=== PATIENT | male | born 1940 | race Caucasian/White ===

== ENCOUNTER 2024-04-24 10:31 | Outpatient (REF) | payer MEDICARE, SELFPAY ==
--- NOTE | ~2024-04-24 | XR_ITS ---
CLINICAL HISTORY: M43.16 - Spondylolisthesis, lumbar region 4 views lumbar spine Comparison: None Findings: Slight rightward curvature of the thoracolumbar spine. Grade 1 anterolisthesis of L5 on S1 without significant change on flexion extension. This measures a proximally 4-5 mm with differences likely related to a degree of parralax. Multilevel disc height loss with reactive endplate changes greatest in the lower lumbar spine with lower lumbar facet hypertrophy. No acute fractures or dislocation. IMPRESSION: Lower lumbar degenerative change with grade 1 anterolisthesis of L5 on S1. No significant change in the degree of listhesis on flexion extension. This document has been electronically signed by: Lora Ames MD on 04/26/2024 08:51:45
== END 2024-04-24 10:32 | disposition home or self-care (01) ==
LOC: HO.HOSX 10:31
PROVIDERS: Referring Provider Family Medicine; Visit Provider Physician Assistant
DX: M43.16 Spondylolisthesis, lumbar region (principal); M51.371 Other intervertebral disc degeneration, lumbosacral region with lower extremity pain only; Z98.890 Other specified postprocedural states
CPT/HCPCS: 72110; 99202

== ENCOUNTER 2024-04-24 10:31 | Outpatient (AMB) | payer MEDICARE, SELFPAY ==
--- NOTE | 2024-04-24 10:33 | A.SPINEOV_ITS ---
Vital Signs 04/24/24 10:49 Height 5 ft 5 in Weight 123 lb 8 oz BMI 20.5 Intake Visit Reasons: LBP Intake Note: Mr. Moralez is here today c/o Low back pain that radiates down to the groin and legs causing numbness and tingling. Clerical And Office Support Workers Required: No Allergies No Known Allergies Allergy (Verified 04/24/24 10:50) Physical Exam Vital Signs: BMI result Body Mass Index 20.5 Assessment & Plan Assessment & Plan (1) Spondylolisthesis, lumbar region: Code(s): M43.16 - Spondylolisthesis, lumbar region Category: Medical Plan Dear Dr Lowe, Thank you for referring Mr Moralez to our office today. He is a very nice 83-year-old gentleman who had a previous lumbar decompression done by Dr. Mario Ward at [facility] in 2019. The symptoms at the time were back pain and right leg pain. Unfortunately after surgery he was no better. Postoperative imaging was done and the patient tells me that he was told that he needed a lumbar fusion. Ideally he wanted to go through the front, but the patient had history of previous gastric surgery done many years ago secondary to gastric cancer, so the patient was sent to a general surgeon at [facility] to see if he was a candidate. The general surgeon thought he would be able to access the disc for and the patient thought the surgery would be planned shortly thereafter, but he never heard back from the office. The patient was very frustrated with the process and lack of communication so he decided to take his own route and try to deal with the pain with injections, therapy and medications etc.. He underwent physical therapy and also had hospice spiritual care coordinator. This would help things for awhile but generally never had a meaningful impact. He underwent injections at [facility] and these have been very successful at times giving him up to 2 months of relief. He still however battles with severe back pain and right leg pain going down into his right buttock, outer thigh into his calf with numbness of his big toe. It is aggravated with standing and walking, but also can bother him if he sits for too long. He is coming to talk about possible surgical options, but he is somewhat hesitant at the idea. His is here with him today. He takes Tylenol in the evenings if he needs it. He was on a leave for sometime but stopped that because he was concerned about his kidneys. He is still able to actively do things around the yard, chop wood and stack wood for his fireplace. PMH: He has history of gastric cancer many years ago, more than 20 years ago. He had resection of part of his stomach, has been able to resume normal diet. History of hypertension, BPH, asthma. He has a diagnosis of seizure disorder related to an event where he had a syncopal episode, but tells me he has never been taken off the medication or reassessed with an EEG. He was told he needs to stay the medication for life. Previous hernia surgery, cataract in both eyes, vasectomy. Denies any history of strokes, cardiovascular disease, major pulmonary problems, bleeding disorders, blood clots, liver disease, kidney disease. No recent history of cancer. Social hx: He does not smoke, drink use any recreational drugs Medications: Lisinopril, omeprazole, albuterol, Flovent, Flonase, finasteride, simvastatin, Singulair, centrum silver, low-dose aspirin, zonisamide, eyedrops, Colace, Tylenol, Oculocin eyedrops, brimonidine Allergies: None Physical exam: Awake alert oriented no acute distress, he has full strength bilateral lower extremities with normal reflexes, no clonus. He is able to stand up out of a chair on his own but he walks with a flexed posture. He has about a 2-3 inch midline incision on his low back which is well healed. He also has about an 8-10 inch scar starting at his umbilicus going upward vertically in the midline. That area is well healed. Imaging review: Lumbar MRI done in July of 2023 at the [facility], shows transitional anatomy, evidence of postsurgical changes at what we will call the L5-S1 level. There is a small rudimentary disc underneath this which we will call S1-S2. There is a grade 1 spondylolisthesis at L5-S1 with severe right L5 foraminal stenosis. Impression: 83-year-old male with previous history of L5-S1 laminectomy, did not have any resolution of his symptoms in [address] ward, who still continues to complain of severe back pain and right leg pain consistent with an L5 distribution. He was previously told by Dr. Ward in 2019 that he would be a good candidate for anterior lumbar interbody fusion surgery despite his previous history of stomach surgery, but the patient never heard back from the office. Since that time he has been dealing with the pain with a combination of medications, anti-inflammatories and injections. He does at times get up to 2 months relief with the injections. He is not exactly sure if this time if he wants to consider surgery, but he does have significant findings including a spondylolisthesis at L5-S1 with severe right L5 foraminal stenosis and disc collapse. I am going to review his imaging to see if Dr. Stoll agrees that the patient would be a good candidate for surgery but I suspect he will offer him surgery if the pain is bad enough. I would like to show the images to him so we can make a more formal plan about the exact approach of surgery. Once I have an answer from Dr. Stoll I will call the gentleman back and discuss with him again. We briefly did discuss what lumbar fusion surgery is, risks, benefits and recovery. I will also get a set of x-rays just to double check that his bone quality would be good enough at his age for fusion surgery. Also, there is incidentally noted right sacral ala lesion on his MRI report. It is suspected to be hemangioma by the radiology, and the patient has no recent history of cancer but if the patient has not followed in our office, this should be monitored periodically to ensure that it is not growing. Thank you for allowing us to care for your patient. The total time spent with this visit with this patient was 45 minutes reviewing history, physical exam, lumbar imaging review, and implementation of treatment plan or further diagnostic testing León Stoll MD,PhD [facility] Orders: Orders XR lumbar spine 4V min Today M43.16 - Spondylolisthesis, lumbar region Coding Level of Care Code New Pt Level 4 (66882) Diagnoses Spondylolisthesis, lumbar region M43.16
[2024-04-24 10:49] VITALS: BMI 20.5
--- OUTSIDE RECORDS SUMMARY | 2024-04-24 11:52 | XMS_ITS | Clinical Summary ---
Author Organization [facility] Address [address] [place] [address] Care Team Providers Care Tensioning Machine Operator Name Role Phone Jacki Rivera Primary Care Provider [phone] Allergies No known active allergies Medications * This document contains information received from the source organization and may not represent a complete record from that organization. Lisinopril (PRINIVIL,ZESTR IL) 40 MG tablet 2 Active Esomeprazole Magnesium (NexIUM) [address] capsule 1 Active ALBUTEROL SULFATE (PROVENTIL HFA;VENTOLIN HFA) 108 (90 Base) MCG/ACT inhaler Inhale Active Fluticasone Propionate HFA (FLOVENT HFA) 110 MCG/ACT inhaler Active FLUTICASONE PROPIONATE, NASAL, (FLONASE) 50 MCG/ACT nasal spray Administer 1 spray into affected nostril(s) Active Finasteride (PROSCAR) 5 MG tablet 2 Active Simvastatin (ZOCOR) 40 MG tablet 2 Active montelukast (SINGULAIR) 10 MG tablet 2 Active Aspirin (ST LATASHA) 81 MG EC tablet 81 mg Active Zonisamide (ZONEGRAN) 100 MG capsule 1 Active Docusate Sodium (COLACE) 100 MG capsule Take 100 mg by mouth 2 (two) times a day Active Social History Tobacco Use Types Packs/Day Years Used Date Smoking Tobacco: Former Smokeless Tobacco: Never Intimate Partner Violence Answer Date R ecorded Fear of Current or Ex-Partner Not on file Emotionally Abused Not on file 09/27/2022 Physically Abused Not on file 09/27/2022 Sexually Abused Not on file 09/27/2022 Feel Safe at Home Not on file 09/27/2022 Sex and Gender Information Value Date Recorded Sex Assigned at Not on file Legal Sex Male 12:55 PM EDT Gender Identity Not on file Sexual Orientation Not on file Plan of Treatment Health Maintenance Due Date Last Done Comments DTaP/Tdap/Td (1 - Tdap) 1958 Pneumococcal 50+ years (1 of 1 - PCV) 1990 Zoster (Shingrix) (1 of 2) 1990 RSV (1 - 1-dose 75+ series) 11/10/2015 COVID-19 Vaccine ( - 2023-2 5 season) 2023 Influenza (#1) 2023 HPV Vaccine Aged Out No longer eligi ble based on patient's age to complete this topic Hep A Aged Out No longer eligi ble based on patient's age to complete this topic Hep B Aged Out No longer eligi ble based on patient's age to complete this topic Hib Aged Out No longer eligi ble based on patient's age to complete this topic Meningococcal ACWY Aged Out No longer eligible based on patient's age to complete this topic Zoster (Zostavax) Discontinued Insurance MEDICARE PART B [facility] OPTIONS-SUPPLEMENTAL * Guarantor: MANAGEMENT OF TRANSPORTION Account Type Relation to Patient Date of Phone Billing Address [employer] [address] [place] [id number] Care Teams Tensioning Machine Operator Relationship Specialty Start Date End Date Jacki Rivera [facility] [address] [id number] PCP - General Family Medicine 01/16/21
--- OUTSIDE RECORDS SUMMARY | 2024-04-24 11:52 | XMS_ITS | Encounter Summary ---
Author Organization [facility] Address [address] [place] [address] Care Team Providers Care Deicer Kit Assembler Name Role Phone ChrissyTriDayan MERCADO Primary Care Provider [phone] Encounter Details Date Type Department Care Team (Latest Contact Info) Description 01/22/2020 Community Orders [facility] EpicCare Link [address] [place] [address] Thiago Bellamy MD [address] [place] [id number] Pre-procedural laboratory examinations (Primary Dx) Social History Tobacco Use Types Packs/Day Years Used Date Smoking Tobacco: Former Smokeless Tobacco: Never Comments:: Alcohol Use Standard Drinks/Week Comments Yes 0 (1 standard drink = 0.6 oz pur e alcohol) social Sex and Gender Information Value Date Recorded Sex Assigned at Not on file Legal Sex Male 12:57 AM EDT Gender Identity Not on file Sexual Orientation Not on file documented as of this encounter Plan of Treatment Not on file documented as of this encounter Results * Due to [place] state law, this organization might not be sharing negative HIV tests. * COVID-19 PCR, Pre-Procedure (Asymptomatic), EDGE SANDER/OP/Saliva (03/18/2020 8:40 AM EST) SARS CoV 2 RNA, RT PCR Not Detected Not Detected 03/18/2020 7:58 PM EST [facility] Comment:A Not Detected (Nega tive) test result is indicative of the absence of SARS-CoV-2 RNA at the level of LoD (Limit of Detection). A negative result does not rule out the possibility of COVID-19 and should not be used as the sole basis for treatment or patient management decisions. If COVID-19 is still suspected, based on exposure history together with other clinical findings, re-testing should be considered. Saliva Mouth region structure / Unknown Non-Blood Collection / Unknown 03/18/2020 8:40 AM EST 03/18/2020 8:40 AM EST Narrative [facility] - 03/18/2020 7:58 PM EST These tests were developed, validated, and their performance characteristics determined by the Molecular Virology Laboratory at [facility] under CLIA [id number]. They have not been cleared or approved by the U.S. Food and Drug Administration (FDA). FDA Policy for Diagnostic Tests for Coronavirus Disease-2019 during the Public Health Emergency issued April 24, 2019, is followed. us Thiago Bellamy MD LAB BODY FLUIDS AND STOOLS ORDER NORM Final Result [facility] [address] [place] [address], documented in this encounter Visit Diagnoses Diagnosis Pre-procedural laboratory examinations- Primary Pre-procedural laboratory examination documented in this encounter Care Teams Deicer Kit Assembler Relationship Specialty Start Date End Date Tri Lowe DO [address] [place] [phone] PCP - General Family Medicine 03/23/24 documented as of this encounter
--- OUTSIDE RECORDS SUMMARY | 2024-04-24 11:53 | XMS_ITS | Clinical Summary ---
Author Organization [facility] Address [address] [place] [address] Care Team Providers Care Yarder Engineer Name Role Phone Tri Lowe DO Primary Care Provider [phone] Allergies Active Allergy Reactions Criticality Noted Date Comments Iodinated Contrast Media Hives,Dyspnea High 08/07/19 20 No Known Drug Allergies Unknown Medications aspirin 81 mg EC tablet 81 mg daily. Active fluticasone (FLOVENT HFA) 110 mcg inhaler Acti ve levETIRAcetam (KEPPRA) 500 mg tablet Active lisinopril (PRINIVIL,ZESTR IL) 40 mg tablet Take 40 mg by mouth daily. Active esomeprazole (NexIUM) 40 mg capsule Take 40 mg by mouth every morning before breakfast. Active albuterol (PROAIR HFA,VENTOLIN HFA) 90 mcg inhaler Inhale by mouth. Use with spacer. Active fluticasone (FLONASE) 50 mcg/actuation nasal spray Administer 1 spray into each nostril daily. Active simvastatin (ZOCOR) 20 mg tablet Take 40 mg by mouth nightly. Taking 40 mg Active montelukast (SINGULAIR) 10 mg tablet Take 10 mg by mouth nightly. Active FOLIC ACID/MULTIVIT-M IN/LUTEIN (CENTRUM SILVER ORAL) Take by mouth. Activ e NAPROXEN SODIUM (ALEVE ORAL) Take by mouth. Ac tive pyridoxine (VITAMIN B6) 50 mg tablet Take 50 mg by mouth daily. Active zonisamide (ZONEGRAN) 100 mg capsule Take 100 mg by mouth daily. Active carboxymethylce llulose-glycern (REFRESH OPTIVE) 0.5-0.9 % drops Instill into affected eye(s). Active carboxymethylce llulose-glycern (REFRESH OPTIVE) 1-0.9 % drops,gel Instill into affected eye(s). Active methylPREDNISol one (MEDROL DOSEPACK) 4 mg tablet follow package directions 21 tablet 9 Active cyclobenzaprine (FLEXERIL) 10 mg tablet Take 1 tablet (10 mg total) by mouth nightly. 30 tablet 9 Active Additional Information Patient not taking.Reported on 03/13/2020 methylPREDNISol one (MEDROL DOSEPACK) 4 mg tablet follow package directions 21 tablet 9 Active oxyCODONE IR (ROXICODONE) 5 mg tablet Take 1 tablet (5 mg total) by mouth 2 times a day. Max Daily Amount: 10 mg 60 tablet 9 Active Additional Information Patient not taking.Reported on 03/13/2020 Active Problems Problem Noted Date Diagnosed Date Lumbar spondylosis 08/27/2016 Lower back pain 04/10/2013 Lumbosacral neuritis 04/10/2013 Vertigo 04/21/2012 Family History Medical History Relation Name Comments Other Father Family History of lung disease Relation Name Status Comments Father Social History Tobacco Use Types Packs/Day Years Used Date Smoking Tobacco: Former Cigarettes Q uit: 1985 Smokeless Tobacco: Never Alcohol Use Standard Drinks/Week Comments Not Currently 0 (1 standard drink = 0.6 oz pur e alcohol) social Sex and Gender Information Value Date Recorded Sex Assigned at Not on file Legal Sex Male 12:57 AM EDT Gender Identity Not on file Sexual Orientation Not on file Last Filed Vital Signs Vital Sign Reading Time Taken Comments Blood Pressure 118/68 08/26/2017 1:18 PM EDT Pulse 63 07/29/2017 10:27 AM EDT Temperature 36.7 ??C (98 ??F) 12/08/2018 2:18 PM EDT Respiratory Rate 18 07/29/2017 10:27 AM EDT Oxygen Saturation 98% 07/29/2017 10:27 AM EDT Inhaled Oxygen Concentration - - Weight 54.9 kg (121 lb) 03/13/2020 4:01 PM EST Height 165.1 cm (5' 5 ) 03/13/2020 4:01 PM EST Body Mass Index 20.14 03/13/2020 4:01 PM EST Plan of Treatment Health Maintenance Due Date Last Done Comments DTaP,Tdap,and Td Vaccines (1 - Tdap) 08/04/2018 08/03/2018 COVID-19 Vaccine (6 - season) 2023 02/23/2022, 07/09/2021, 01/06/2021, Additional history exists Alcohol/Substance Use Screening 02/09/2024 Fall Risk Screening 02/09/2024 Health Care Proxy Review 02/09/2024 Social Drivers of Health Annual Screening 02/09/2024 Zoster Vaccines Completed 10/06/2018, 05/12/2018 RSV Vaccine (60+ years old and patients) Completed 12/08/2022 Pneumococcal Vaccine: 50+ Years Completed 01/13/2023, 11/18/2007, 04/09/2005 Influenza Vaccine Completed 12/09/2023, , 12/11/2020, Additional history exists Hepatitis B Vaccines Aged Out No long er eligible based on patient's age to complete this topic Insurance MEDICARE [facility] SUPP AARP Care Teams Yarder Engineer Relationship Specialty Start Date End Date Tri Lowe DO [address] [place] [phone] PCP - General Family Medicine 03/23/24
--- OUTSIDE RECORDS SUMMARY | 2024-04-24 11:53 | XMS_ITS | Referral Summary ---
Author Organization [facility] Address [address] [place] [address] Care Team Providers Care Painting Trades Worker Name Role Phone Tri Lowe DO Primary Care Provider [phone] Allergies Active Allergy Reactions Criticality Noted Date [...] pain 04/10/2013 Lumbosacral neuritis 04/10/2013 Vertigo 04/21/2012 Social History Tobacco Use Types Packs/Day Years [...] 03/13/2020 4:01 PM EST Plan of Treatment Not on file Insurance MEDICARE [facility] Care Teams Painting Trades Worker Relationship Specialty Start Date End Date Tri Lowe DO [address] [place] [address] [place] [phone] PCP - General Family Medicine 03/23/24
--- OUTSIDE RECORDS SUMMARY | 2024-04-24 11:53 | XMS_ITS | Data Portability ---
Author Organization [facility], [facility] Address [address] [place] [address] Care Team Providers Care Method Consultant Name Role Phone TRI SINGH Primary Care Provider [phone] TRI SINGH Referring Provider ALYSSIA REYES Pain Management Assessment No assessment recorded. Plan of Treatment Reminders Order Date Submit Date Provider Last Modified By Organization Details Last Modified Time Details Appointments PCP-Offic e Visit-15 Min 2024 09:45A M Tri Singh, DO Not available Not available Not available PCP-Medic are Exam-30 Min 2024 09:00A M Tri Singh, DO Not available Not available Not available Lab hepatitis C virus Ab, serum 2023 024 [facility], [address] [place] [address], [id number], 01/12/2024 17:59:39 CMP, serum or plasma 2023 024 [facility], [address] [place], [address], 01/12/2024 17:54:05 lipid panel, serum 2023 024 [facility], [address] [place], [address], 01/12/2024 17:54:07 CBC w/ auto diff 2023 024 [facility], [address] [place], [address], 01/12/2024 18:11:24 CBC w/ auto diff 2023 024 [facility], [address] [facility] [place], [address], 07/12/2023 16:18:47 lipid panel, serum 2023 024 [facility], [address] [facility] [place], [address], 07/12/2023 16:43:28 CMP, serum or plasma 2023 024 [facility], [address] [facility], [place], [address], 07/12/2023 16:43:26 Referral gastroent erologist referral - Due for colon cancer screening . Family history: [address] [facility], [address], [place], [address], 04/18/2024 15:14:18 neurologi pam surgeon referral - Patient has upcoming MRI 2023 024 SHUBUTAJANEL Stoll MD, [address] [place] [address] Dr, [facility] [address], [place], [address], 04/17/2024 11:58:13 Procedures None recorded. Surgeries None recorded. Imaging MRI, lumbar spine, w/o contrast 2023 024 [facility], [address] [place], [address], 07/31/2023 09:34:54 Medication Orders lisinopri l 40 mg tablet 2023 024 [facility], [address] [place] [address], [id number], 07/12/2023 11:47:46 Patient TargetsNo targets recorded. Patient Instructions Encounter Date Encounter Id Patient Instructions Last Modified By Organization Details Last Modified Time 08/23/2023 [id number] 1. PHYSICAL THERAPY: pt encouraged to stay active. home exercises 2. BEHAVIORAL THERAPY: denies depression/psych issues 3. MEDICATIONS: failed neurontin and lyrica , tramadol, T3, vicodin and hysingla and cymbalta. avoid nsaids, continue tylenol 4. INTERVENTIONS: right L5S1 LUX and right gtb inj 5. FUNCTION: pain moderately affects his function 6. PAIN ASSESSMENT: mod to severe 7. COMPLIANCE: no issues. mpat verified. no signs of aberrant behavior 8. WEIGHT LOSS/DIET/SMOKING CESSATION: counseled 9. LABS/RADIOLOGY: 07/2023 MRI of the L spine reviewed. 10/2018 C spine mri reviewed. bone scan 11. REFERRALS : none. doesnt want surgery 10. FOLLOW UP: 6 weeks 12. OPIOID RISK ASSESSMENT: MILD pt w chronic b/l gluteal pain radiating to the right ankle and left posterior knee and right hip pain. no red flags .s/p lumbar lami dec 2018 [email or web address] Not available 08/23/2023 11:34:57 10/25/2023 [id number] 1. PHYSICAL THERAPY: pt encouraged to stay active. home exercises 2. BEHAVIORAL THERAPY: denies depression/psych issues 3. MEDICATIONS: failed neurontin and lyrica , tramadol, T3, vicodin and hysingla and cymbalta. avoid nsaids, continue tylenol 4. INTERVENTIONS: caudal LUX and right GTB and right ischial bursa inj, iv sedation 5. FUNCTION: pain moderately affects his function 6. PAIN ASSESSMENT: mod to severe 7. COMPLIANCE: no issues. mpat verified. no signs of aberrant behavior 8. WEIGHT LOSS/DIET/SMOKING CESSATION: counseled 9. LABS/RADIOLOGY: 07/2023 MRI of the L spine reviewed. 10/2018 C spine mri reviewed. bone scan 11. REFERRALS : none. doesnt want surgery 10. FOLLOW UP: 6 weeks 12. OPIOID RISK ASSESSMENT: MILD pt w chronic low back pain radiating to the right ankle and left posterior knee and right hip pain and right buttock pain. no red flags .s/p lumbar lami dec 2018 kkalava Not available 10/25/2023 09:47:26 01/04/2024 [id number] 1. PHYSICAL THERAPY: pt encouraged to stay active. home exercises 2. BEHAVIORAL THERAPY: denies depression/psych issues 3. MEDICATIONS: failed neurontin and lyrica , tramadol, T3, vicodin and hysingla and cymbalta. avoid nsaids, continue tylenol 4. INTERVENTIONS: none 5. FUNCTION: okay 6. PAIN ASSESSMENT: tolerable 7. COMPLIANCE: no issues. mpat verified. no signs of aberrant behavior 8. WEIGHT LOSS/DIET/SMOKING CESSATION: counseled 9. LABS/RADIOLOGY: 07/2023 MRI of the L spine reviewed. 10/2018 C spine mri reviewed. bone scan 11. REFERRALS : none. 10. FOLLOW UP: prn 12. OPIOID RISK ASSESSMENT: MILD pt w chronic low back pain radiating to the right ankle and left posterior knee and right hip pain and right buttock pain. no red flags .s/p lumbar lami dec 2018 [email or web address] Not available 01/04/2024 09:28:07 Reason for Referral Neurological Surgeon Referra l for Lumbar radiculopathy Patient has upcoming MRI Referring Physician: Tri Singh [facility], Encounter Date: 07/12/2023 [employer]aster Referral for Screening for malignant neoplasm of colon Due for colon cancer screening. Family history: Referring Physician: Tri Singh [facility], Encounter Date: 01/12/2024 Results Created Date Observation Date Name Description Value Unit Range Abnormal Flag Note LastModifiedBy Organization Detail LastModifiedTime 07/12/19 24 07/12/2023 COMPL ETE BLOOD COUNT AUTO DIFF white blood count 3.85 K/uL 3.5-11 .0 normal Not Available [facility] [address] [place] [address], [id number] 07/12/2023 16:18:47 07/12/19 24 07/12/2023 COMPL ETE BLOOD COUNT AUTO DIFF red blood count 4.12 M/uL 3.90-5 .50 normal Not Available [facility] [address] [place] [address], [id number] 07/12/2023 16:18:47 07/12/19 24 07/12/2023 COMPL ETE BLOOD COUNT AUTO DIFF hemoglobin 13.2 g/dL 14.0-1 8.0 low Not Available [facility] [address] [place] [address], [id number] 07/12/2023 16:18:47 07/12/19 24 07/12/2023 COMPL ETE BLOOD COUNT AUTO DIFF hematocrit 40.1 % 42.0-5 4.0 low Not Available [facility] [address] [place] [address], [id number] 07/12/2023 16:18:47 07/12/19 24 07/12/2023 COMPL ETE BLOOD COUNT AUTO DIFF mean corpuscular volume 97.3 fL 80.0-1 00.0 normal Not Available [facility] [address] [place] [address], [id number] 07/12/2023 16:18:47 07/12/19 24 07/12/2023 COMPL ETE BLOOD COUNT AUTO DIFF mean corpuscular hemoglobin 32.0 pg 25.4-3 4.6 normal Not Available [facility] [address] [place] [address], [id number] 07/12/2023 16:18:47 07/12/19 24 07/12/2023 COMPL ETE BLOOD COUNT AUTO DIFF mean corpuscular HGB conc 32.9 g/dL 31.0-3 7.0 normal Not Available [facility] [address] [place] [address], [id number] 07/12/2023 16:18:47 07/12/19 24 07/12/2023 COMPL ETE BLOOD COUNT AUTO DIFF red cell distribution width 13.6 % 11.5-1 4.5 normal Not Available [facility] [address] [place] [address], [id number] 07/12/2023 16:18:47 07/12/19 24 07/12/2023 COMPL ETE BLOOD COUNT AUTO DIFF platelet count 162 K/uL 150-40 0 normal Not Available [facility] [address] [place] [address], [id number] 07/12/2023 16:18:47 07/12/19 24 07/12/2023 COMPL ETE BLOOD COUNT AUTO DIFF neutrophils percent auto 53.5 % 35.0-6 6.0 normal Not Available [facility] [address] [place] [address], [id number] 07/12/2023 16:18:47 07/12/19 24 07/12/2023 COMPL ETE BLOOD COUNT AUTO DIFF imm gran pct auto 0.0 % 0.0-0. 6 normal Not Available [facility] [address] [place] [address], [id number] 07/12/2023 16:18:47 07/12/19 24 07/12/2023 COMPL ETE BLOOD COUNT AUTO DIFF lymphocytes percent auto 35.3 % 25.0-4 5.0 normal Not Available [facility] [address] [place] [address], [id number] 07/12/2023 16:18:47 07/12/19 24 07/12/2023 COMPL ETE BLOOD COUNT AUTO DIFF monocytes percent auto 9.1 % 0.0-13 .0 normal Not Available [facility] [address] [place] [address], [id number] 07/12/2023 16:18:47 07/12/19 24 07/12/2023 COMPL ETE BLOOD COUNT AUTO DIFF eosinophils percent auto 1.8 % 0.0-8. 0 normal Not Available [facility] [address] [place] [address], [id number] 07/12/2023 16:18:47 07/12/19 24 07/12/2023 COMPL ETE BLOOD COUNT AUTO DIFF basophils percent auto 0.3 % 0.0-1. 0 normal Not Available [facility] [address] [place] [address], [id number] 07/12/2023 16:18:47 07/12/19 24 07/12/2023 COMPL ETE BLOOD COUNT AUTO DIFF NRBC pct auto 0.0 /100_ WBC 0.0 normal Not Available [facility] [address] [place] [address], [id number] 07/12/2023 16:18:47 07/12/19 24 07/12/2023 COMPL ETE BLOOD COUNT AUTO DIFF neutrophils absolute auto 2.06 K/uL 1.5-7. 5 normal Not Available [facility] [address] [place] [address], [id number] 07/12/2023 16:18:47 07/12/19 24 07/12/2023 COMPL ETE BLOOD COUNT AUTO DIFF imm gran abs auto 0.00 K/uL 0.00-0 .09 normal Not Available [facility] [address] [place] [address], [id number] 07/12/2023 16:18:47 07/12/19 24 07/12/2023 COMPL ETE BLOOD COUNT AUTO DIFF lymphocytes absolute auto 1.36 K/uL 0.8-4. 8 normal Not Available [facility] [address] [place] [address], [address] 07/12/2023 16:18:47 07/12/19 24 07/12/2023 COMPL ETE BLOOD COUNT AUTO DIFF monocytes absolute auto 0.35 K/uL 0.4-1. 3 low Not Available [facility] [address] [place] [address], [id number] 07/12/2023 16:18:47 07/12/19 24 07/12/2023 COMPL ETE BLOOD COUNT AUTO DIFF eosinophils absolute auto 0.07 K/uL 0.0-0. 8 normal Not Available [facility] [address] [place] [address], [id number] 07/12/2023 16:18:47 07/12/19 24 07/12/2023 COMPL ETE BLOOD COUNT AUTO DIFF basophils absolute auto 0.01 K/uL 0.0-0. 6 normal Not Available [facility] [address] [place] [address], [address] 07/12/2023 16:18:47 07/12/19 24 07/12/2023 COMPL ETE BLOOD COUNT AUTO DIFF NRBC abs auto 0.00 K/uL 0.00 normal Not Available [facility] [address] [place] [address], [id number] 07/12/2023 16:18:47 07/12/19 24 07/12/2023 COMPR EHENS BETO MET. PANEL sodium 139 mmol/ L 136-14 5 normal Not Available [facility] [address] [place] [address], [id number] 07/12/2023 16:43:26 07/12/19 24 07/12/2023 COMPR EHENS BETO MET. PANEL potassium 4.55 mmol/ L 3.5-5. 1 normal Not Available [facility] [address] [place] [address], [address] 07/12/2023 16:43:26 07/12/19 24 07/12/2023 COMPR EHENS BETO MET. PANEL chloride 106 mmol/ L 98-107 normal Not Available [facility] [address] [place] [address], [address] 07/12/2023 16:43:26 07/12/19 24 07/12/2023 COMPR EHENS BETO MET. PANEL carbon dioxide 25 mmol/ L 22-29 normal Not Available [facility] [address] [place], [address] 07/12/2023 16:43:26 07/12/19 24 07/12/2023 COMPR EHENS BETO MET. PANEL anion gap 13 mmol/ L 10-20 normal Not Available [facility] [address] [place], [address] 07/12/2023 16:43:26 07/12/19 24 07/12/2023 COMPR EHENS BETO MET. PANEL blood urea nitrogen 19 mg/dL 8-23 normal Not Available [facility] [address] [place], [address] 07/12/2023 16:43:26 07/12/19 24 07/12/2023 COMPR EHENS BETO MET. PANEL creatinine 0.87 mg/dL 0.67-1 .17 normal Not Available [facility] [address] [place] [address], [address] 07/12/2023 16:43:26 07/12/19 24 07/12/2023 COMPR EHENS BETO MET. PANEL estimated glomerular filt rate 86 GFR Value : mL/mi n/1.7 3 squar e meter s Calcu latio n: CKD-E PI Creat inine Equat ion (2020 ) Chron ic Kidne y Disea se is defin ed as eithe r of the follo wing prese nt for >= 3 month s: - GFR less than 60 mL/mi n/1.7 3 squar e meter s. - Micro album in:Ur . Creat inine Ratio >= 30 mg/g or other marke rs of kidkaila y damag e Kidne y failu re is less than 15 mL/mi n/1.7 3 squar e meter s This test is not perfo rmed in patie nts under the age of 18. Not Available [facility] [address] [place], [address] 07/12/2023 16:43:26 07/12/19 24 07/12/2023 COMPR EHENS BETO MET. PANEL glucose 99 mg/dL 82-115 normal Not Available [facility] [address] [place], [address] 07/12/2023 16:43:26 07/12/19 24 07/12/2023 COMPR EHENS BETO MET. PANEL calcium 9.1 mg/dL 8.8-10 .2 normal Not Available [facility] [address] [place], [address] 07/12/2023 16:43:26 07/12/19 24 07/12/2023 COMPR EHENS BETO MET. PANEL bilirubin total 0.2 mg/dL 0.2-1. 2 normal Not Available [facility] [address] [place], [address] 07/12/2023 16:43:26 07/12/19 24 07/12/2023 COMPR EHENS BETO MET. PANEL aspartate amino transferase 20 U/L 5-40 normal Not Available [facility] [address] [place], [address] 07/12/2023 16:43:26 07/12/19 24 07/12/2023 COMPR EHENS BETO MET. PANEL alanine aminotransfe rase 24 U/L 5-41 normal Not Available [facility] [address] [place], [address] 07/12/2023 16:43:26 07/12/19 24 07/12/2023 COMPR EHENS BETO MET. PANEL total protein 6.4 g/dL 6.4-8. 3 normal Not Available [facility] [address] [place], [address] 07/12/2023 16:43:26 07/12/19 24 07/12/2023 COMPR EHENS BETO MET. PANEL albumin level 4.4 g/dL 3.5-5. 2 normal Not Available [facility] [address] [place], [address] 07/12/2023 16:43:26 07/12/19 24 07/12/2023 COMPR EHENS BETO MET. PANEL globulin 2.1 gm/dL 2.0-3. 5 normal Not Available [facility] [address] [place], [address] 07/12/2023 16:43:26 07/12/19 24 07/12/2023 COMPR EHENS BETO MET. PANEL albumin globulin ratio 2.1 % 1.1-2. 5 normal Not Available [facility] [address] [place], [address] 07/12/2023 16:43:26 07/12/19 24 07/12/2023 COMPR EHENS BETO MET. PANEL alkaline phosphatase 64 U/L 40-129 normal Not Available [facility] [address] [place], [address] 07/12/2023 16:43:26 07/12/19 24 07/12/2023 LIPID PANEL WITH REFLE X triglyceride s 92 mg/dL 30-150 normal Refer ence Range s: <150 mg/dl Beatriz l 150-1 99 mg/dl Borde rline High 200-4 99 mg/dl High >500 mg/dl Very High Not Available [facility] [address] [place], [address] 07/12/2023 16:43:28 07/12/19 24 07/12/2023 LIPID PANEL WITH REFLE X cholesterol 116 mg/dL 100-20 0 normal Not Available [facility] [address] [place], [address] 07/12/2023 16:43:28 07/12/19 24 07/12/2023 LIPID PANEL WITH REFLE X LDL cholesterol direct TNP mg/dL 0-100 Not Available [facility] [address] [place], [address] 07/12/2023 16:43:28 07/12/19 24 07/12/2023 LIPID PANEL WITH REFLE X LDL cholesterol calculated 45.0 mg/dL 0-100 normal Natio nal Nirali stero l Educa tion Progr am sugge sts the follo wing refer ence range : Optim al <100 mg/dL Near optim al/ab ove optim al 100-1 29 mg/dL Borde rline high 130-1 59 mg/dL High 160-1 89 mg/dL Very high >190 mg/dL Not Available [facility] [address] [place], [address] 07/12/2023 16:43:28 07/12/19 24 07/12/2023 LIPID PANEL WITH REFLE X HDL cholesterol 52.7 mg/dL 40-60 normal Major risk facto r for CHD: <40 mg/dL Negat beto risk facto r for CHD: >=60 mg/dL Not Available [facility] [address] [place], [address] 07/12/2023 16:43:28 07/12/19 24 07/12/2023 LIPID PANEL WITH REFLE X chol HDL ratio 2.20 Risk CHOL/ HDL CHOL/ HDL Ratio Male Femal e 1/2 AVERA GE 3.43 3.27 AVERA GE 4.97 4.44 2 X AVERA GE 9.55 7.05 3 X AVERA GE 23.39 11.04 Not Available [facility] [address] [place], [address] 07/12/2023 16:43:28 07/12/19 24 07/15/2023 PROST ATE SPECI FIC ANTIG EN prostate specific antigen 0.27 NG/mL 0.0-4. 0 normal Not Available [facility] [address] [place] [address], [id number] 07/15/2023 13:03:26 01/12/20 24 01/12/2024 COMPR EHENS BETO MET. PANEL sodium 142 mmol/ L 136-14 5 normal Not Available [facility] [address] [place] [address], [address] 01/12/2024 17:54:05 01/12/20 24 01/12/2024 COMPR EHENS BETO MET. PANEL potassium 4.14 mmol/ L 3.5-5. 1 normal Not Available [facility] [address] [place] [address], [address] 01/12/2024 17:54:05 01/12/20 24 01/12/2024 COMPR EHENS BETO MET. PANEL chloride 107 mmol/ L 98-107 normal Not Available [facility] [address] [place], [address] 01/12/2024 17:54:05 01/12/20 24 01/12/2024 COMPR EHENS BETO MET. PANEL carbon dioxide 25 mmol/ L 22-29 normal Not Available [facility] [address] [place], [address] 01/12/2024 17:54:05 01/12/20 24 01/12/2024 COMPR EHENS BETO MET. PANEL anion gap 14 mmol/ L 10-20 normal Not Available [facility] [address] [place], [address] 01/12/2024 17:54:05 01/12/20 24 01/12/2024 COMPR EHENS BETO MET. PANEL blood urea nitrogen 23 mg/dL 8-23 normal Not Available [facility] [address] [facility] [place], [address] 01/12/2024 17:54:05 01/12/20 24 01/12/2024 COMPR EHENS BETO MET. PANEL creatinine 0.86 mg/dL 0.67-1 .17 normal Not Available [facility] [address] [place], [address] 01/12/2024 17:54:05 01/12/20 24 01/12/2024 COMPR EHENS BETO MET. PANEL estimated glomerular filt rate 86 GFR Value : mL/mi n/1.7 3 squar e meter s Calcu latio n: CKD-E PI Creat inine Equat ion (2020 ) Chron ic Kidkaila y Disea se is defin ed as eithe r of the follo wing prese nt for >= 3 month s: - GFR less than 60 mL/mi n/1.7 3 squar e meter s. - Micro album in:Ur . Creat inine Ratio >= 30 mg/g or other marke rs of sweta soriano e Kidkaila y failu re is less than 15 mL/mi n/1.7 3 squar e meter s This test is not perfo rmed in patie nts under the age of 18. Not Available [facility] [address] [place], [address] 01/12/2024 17:54:05 01/12/20 24 01/12/2024 COMPR EHENS BETO MET. PANEL glucose 96 mg/dL 82-115 normal Not Available [facility] [address] [place], [address] 01/12/2024 17:54:05 01/12/20 24 01/12/2024 COMPR EHENS BETO MET. PANEL calcium 9.3 mg/dL 8.8-10 .2 normal Not Available [facility] [address] [place], [address] 01/12/2024 17:54:05 01/12/20 24 01/12/2024 COMPR EHENS BETO MET. PANEL bilirubin total 0.4 mg/dL 0.2-1. 2 normal Not Available [facility] [address] [place], [address] 01/12/2024 17:54:05 01/12/20 24 01/12/2024 COMPR EHENS BETO MET. PANEL aspartate amino transferase 21 U/L 5-40 normal Not Available [facility] [address] [place] [address], [address] 01/12/2024 17:54:05 01/12/20 24 01/12/2024 COMPR EHENS BETO MET. PANEL alanine aminotransfe rase 26 U/L 5-41 normal Not Available [facility] Department [address] [place], [address] 01/12/2024 17:54:05 01/12/20 24 01/12/2024 COMPR EHENS BETO MET. PANEL total protein 6.6 g/dL 6.4-8. 3 normal Not Available [facility] [address] [place] [address], [id number] 01/12/2024 17:54:05 01/12/20 24 01/12/2024 COMPR EHENS BETO MET. PANEL albumin level 4.4 g/dL 3.5-5. 2 normal Not Available [facility] [address] [place] [address], [id number] 01/12/2024 17:54:05 01/12/20 24 01/12/2024 COMPR EHENS BETO MET. PANEL globulin 2.2 gm/dL 2.0-3. 5 normal Not Available [facility] [address] [place] [address], [address] 01/12/2024 17:54:05 01/12/20 24 01/12/2024 COMPR EHENS BETO MET. PANEL albumin globulin ratio 2.0 % 1.1-2. 5 normal Not Available [facility] [address] [place] [address], [address] 01/12/2024 17:54:05 01/12/20 24 01/12/2024 COMPR EHENS BETO MET. PANEL alkaline phosphatase 59 U/L 40-129 normal Not Available [facility] [address] [place] [address], [address] 01/12/2024 17:54:05 01/12/20 24 01/12/2024 LIPID PANEL WITH REFLE X triglyceride s 84 mg/dL 30-150 normal Refer ence Range s: <150 mg/dl Beatriz l 150-1 99 mg/dl Borde rline High 200-4 99 mg/dl High >500 mg/dl Very High Not Available [facility] [address] [place], [address] 01/12/2024 17:54:07 01/12/20 24 01/12/2024 LIPID PANEL WITH REFLE X cholesterol 132 mg/dL 100-20 0 normal Not Available [facility] [address] [place], [address] 01/12/2024 17:54:07 01/12/20 24 01/12/2024 LIPID PANEL WITH REFLE X LDL cholesterol direct TNP mg/dL 0-100 Not Available [facility] [address] [place], [address] 01/12/2024 17:54:07 01/12/20 24 01/12/2024 LIPID PANEL WITH REFLE X LDL cholesterol calculated 63.0 mg/dL 0-100 normal Natio nal Nirali stero l Educa tion Progr am sugge sts the follo wing refer ence range : Optim al <100 mg/dL Near optim al/ab ove optim al 100-1 29 mg/dL Borde rline high 130-1 59 mg/dL High 160-1 89 mg/dL Very high >190 mg/dL Not Available [facility] [address] [place], [address] 01/12/2024 17:54:07 01/12/20 24 01/12/2024 LIPID PANEL WITH REFLE X HDL cholesterol 52.5 mg/dL 40-60 normal Major risk facto r for CHD: <40 mg/dL Negat beto risk facto r for CHD: >=60 mg/dL Not Available [facility] [address] [place], [address] 01/12/2024 17:54:07 01/12/20 24 01/12/2024 LIPID PANEL WITH REFLE X chol HDL ratio 2.51 Risk CHOL/ HDL CHOL/ HDL Ratio Male Femal e 1/2 AVERA GE 3.43 3.27 AVERA GE 4.97 4.44 2 X AVERA GE 9.55 7.05 3 X AVERA GE 23.39 11.04 Not Available [facility] [address] [place] [address], [address] 01/12/2024 17:54:07 01/12/20 24 01/12/2024 HEPAT ITIS C ANTIB MANOJ hepatitis C virus antibody NONREA CTIVE nonrea ctive Nonre activ e/Ant ibodi es to HCV not detec jd; does not exclu de early acute HCV infec tion Not Available [facility] [address] [place] [address], [id number] 01/12/2024 17:59:39 01/12/20 24 01/12/2024 COMPL ETE BLOOD COUNT AUTO DIFF white blood count 4.88 K/uL 3.5-11 .0 normal Not Available [facility] [address] [place] [address], [id number] 01/12/2024 18:11:24 01/12/20 24 01/12/2024 COMPL ETE BLOOD COUNT AUTO DIFF red blood count 4.47 M/uL 3.90-5 .50 normal Not Available [facility] [address] [place] [address], [id number] 01/12/2024 18:11:24 01/12/20 24 01/12/2024 COMPL ETE BLOOD COUNT AUTO DIFF hemoglobin 14.0 g/dL 14.0-1 8.0 normal Not Available [facility] [address] [place] [address], [id number] 01/12/2024 18:11:24 01/12/20 24 01/12/2024 COMPL ETE BLOOD COUNT AUTO DIFF hematocrit 44.3 % 42.0-5 4.0 normal Not Available [facility] [address] [place] [address], [address] 01/12/2024 18:11:24 01/12/20 24 01/12/2024 COMPL ETE BLOOD COUNT AUTO DIFF mean corpuscular volume 99.1 fL 80.0-1 00.0 normal Not Available [facility] [address] [place] [address], [id number] 01/12/2024 18:11:24 01/12/20 24 01/12/2024 COMPL ETE BLOOD COUNT AUTO DIFF mean corpuscular hemoglobin 31.3 pg 25.4-3 4.6 normal Not Available [facility] [address] [place] [address], [id number] 01/12/2024 18:11:24 01/12/20 24 01/12/2024 COMPL ETE BLOOD COUNT AUTO DIFF mean corpuscular HGB conc 31.6 g/dL 31.0-3 7.0 normal Not Available [facility] [address] [place] [address], [id number] 01/12/2024 18:11:24 01/12/20 24 01/12/2024 COMPL ETE BLOOD COUNT AUTO DIFF red cell distribution width 12.6 % 11.5-1 4.5 normal Not Available [facility] [address] [place] [address], [id number] 01/12/2024 18:11:24 01/12/20 24 01/12/2024 COMPL ETE BLOOD COUNT AUTO DIFF platelet count 166 K/uL 150-40 0 normal Not Available [facility] [address] [place] [address], [id number] 01/12/2024 18:11:24 01/12/20 24 01/12/2024 COMPL ETE BLOOD COUNT AUTO DIFF neutrophils percent auto 63.6 % 35.0-6 6.0 normal Not Available [facility] [address] [place] [address], [id number] 01/12/2024 18:11:24 01/12/20 24 01/12/2024 COMPL ETE BLOOD COUNT AUTO DIFF imm gran pct auto 0.2 % 0.0-0. 6 normal Not Available [facility] [address] [place] [address], [id number] 01/12/2024 18:11:24 01/12/20 24 01/12/2024 COMPL ETE BLOOD COUNT AUTO DIFF lymphocytes percent auto 25.4 % 25.0-4 5.0 normal Not Available [facility] [address] [place] [address], [id number] 01/12/2024 18:11:24 01/12/20 24 01/12/2024 COMPL ETE BLOOD COUNT AUTO DIFF monocytes percent auto 9.4 % 0.0-13 .0 normal Not Available [facility] [address] [place] [address], [id number] 01/12/2024 18:11:24 01/12/20 24 01/12/2024 COMPL ETE BLOOD COUNT AUTO DIFF eosinophils percent auto 1.2 % 0.0-8. 0 normal Not Available [facility] [address] [place] [address], [id number] 01/12/2024 18:11:24 01/12/20 24 01/12/2024 COMPL ETE BLOOD COUNT AUTO DIFF basophils percent auto 0.2 % 0.0-1. 0 normal Not Available [facility] [address] [place] [address], [id number] 01/12/2024 18:11:24 01/12/20 24 01/12/2024 COMPL ETE BLOOD COUNT AUTO DIFF NRBC pct auto 0.0 /100_ WBC 0.0 normal Not Available [facility] [address] [place] [address], [id number] 01/12/2024 18:11:24 01/12/20 24 01/12/2024 COMPL ETE BLOOD COUNT AUTO DIFF neutrophils absolute auto 3.10 K/uL 1.5-7. 5 normal Not Available [facility] [address] [place] [address], [id number] 01/12/2024 18:11:24 01/12/20 24 01/12/2024 COMPL ETE BLOOD COUNT AUTO DIFF imm gran abs auto 0.01 K/uL 0.00-0 .09 normal Not Available [facility] [address] [place] [address], [id number] 01/12/2024 18:11:24 01/12/20 24 01/12/2024 COMPL ETE BLOOD COUNT AUTO DIFF lymphocytes absolute auto 1.24 K/uL 0.8-4. 8 normal Not Available [facility] [address] [place] [address], [id number] 01/12/2024 18:11:24 01/12/20 24 01/12/2024 COMPL ETE BLOOD COUNT AUTO DIFF monocytes absolute auto 0.46 K/uL 0.4-1. 3 normal Not Available [facility] [address] [place] [address], [id number] 01/12/2024 18:11:24 01/12/20 24 01/12/2024 COMPL ETE BLOOD COUNT AUTO DIFF eosinophils absolute auto 0.06 K/uL 0.0-0. 8 normal Not Available [facility] [address] [place], [address] 01/12/2024 18:11:24 01/12/20 24 01/12/2024 COMPL ETE BLOOD COUNT AUTO DIFF basophils absolute auto 0.01 K/uL 0.0-0. 6 normal Not Available [facility] [address] [place], [address] 01/12/2024 18:11:24 01/12/20 24 01/12/2024 COMPL ETE BLOOD COUNT AUTO DIFF NRBC abs auto 0.00 K/uL 0.00 normal Not Available [facility] [address] [place], [address] 01/12/2024 18:11:24 07/31/19 24 07/30/2023 MR lumba r spine (C-) CPT 48809 [facility] Access ion Number : [id number] Lam sparrow Name: Sigifredo floParasa l Record Number : [id number] Date of : 1940 Date of Exam: 2023 Referr ing Physic natividad: [facility] [address] [address] Exam: MR Lumbar Spine (C-) CPT 37772 Room Descri ption: [facility] Siem Altea 1.5 [facility] [address] [place] [address] Magnet ic Resona nce Report Signed Lam t: Sigifredo rossiJavierlatisha moura MR#: [id number] : 1940 Acct:H [id number] Age/Se x: 82 / M ADM Date: Loc: HE.MRI Attend ing Dr: Tri Singh DO Orderi Physic natividad: Tri Singh DO Date of Servic e: Proced ure(s) : MR lumbar spine wo con Access ion Number (s): [id number] H cc: Jacki Rivera EXAM: MR lumbar spine wo con CLINIC AL INDICA TION: - Radicu lopath y, lumbar region TECHNI QUE: Lumbar spine MRI perfor med withou t contra st using depart mental protoc ol. T1 and T2 sequen rebecca obtain ed. Axial and sagitt al views obtain ed. COMPAR ADRIANA: MRI 2020, bone scan 2020 FINDIN GS: Transi tional lumbos acral verteb ral body with lumbar izatio n of S1. Unchan ged degene rative change s of the lumbar spine since 2020 (see that report for detail s). Most signif icantl y there is unchan ged grade 1 ivett listhe sis L5 on S1 with severe right neural forami nal narrow ing, and severe bilate ral facet joint arthro deena as well as mild spinal canal stenos is. No spinal canal stenos is or severe neural forami nal narrow ing at other level, and no other listhe ses. No visibl e fractu res. The indete rminat e 12 mm enhanc ing right sacral alar lesion report ed on prior MRI is not within the field- of-vie w of this study and was negati ve on prior bone scan (see those report s for detail s). Electr onical ly Signed in Fernandez cribe By Dion Owusu MD 024 MR/MR lumbar spine wo con IMPRES ANDRIA: 1. Transi tional lumbos acral verteb ral body with lumbar izatio n of S1. Unchan ged degene rative change s of the lumbar spine since 2020 (see that report for detail s). Most signif icantl y there is unchan ged grade 1 ivett listhe sis L5 on S1 with severe right neural forami nal narrow ing, and severe bilate ral facet joint arthro deena as well as mild spinal canal stenos is. 2. The indete rminat e 12 mm enhanc ing right sacral alar lesion report ed on prior MRI is not within the field- of-vie w of this study and was negati ve on prior bone scan (see those report s for detail s). Recomm end manage ment of the patien t's clinic ally suspec jd condit ion and of any above findin gs per clinic al guidel dunia utiliz ed. Additi onal findin gs as above. Dictat ed By: Dion Owusu MD Signed By: 0929 DD/DT: 1620 TD/TT: 1635 Transc riptio nist: [place] Electr onical ly Signed By: Dion [facility] [address] [place], [address], 08/09/2023 13:00:08 09/10/1909/09/2023 ir fluor oscop y <1HR [facility] [address] [place] [address] Interv ention al Radiol ogy Rpt Signed Patien t: Hakan Billings MR#: [id number] : 1940 Acct:H [id number] Age/Se x: 82 / M ADM Date: Loc: HE.OR Attend ing Dr: Alyssia Reyes MD Orderi ng Physic natividad: Alyssia Reyes MD Date of Servic e: Proced ure(s) : IR fluoro scopy <1hr Access ion Number (s): [id number] H cc: Jacki Nicole EXAM: IR fluoro scopy <1hr CLINIC AL INDICA TION: LUX/GT B EXPOSU RE (CUMUL ATIVE AIR KERMA) : 1 mGy. FINDIN GS: Fluoro scopic guided inject ions were perfor med by Dr.Kal hamilton. Please see proced ure report for descri ption of inject ion sites. Electr onical ly Signed in Fernandez cribe By CHANDLER Good MD, 002 IR/IR fluoro scopy <1hr IMPRES ANDRIA: Fluoro scopic guidan ce of inject ions. Dictat ed By: Chandler good MD Signed By: 09 DD/DT: 151 TD/TT: 151 Transc riptio nist: [email or web address] [address] [place] [address], [place], [address], 09/10/2023 14:31:22 10/16/20 24 11/23/2023 ir fluor oscop y <1HR [facility] [address] [facility] [place] [address] Interv ention al Radiol ogy Rpt Signed Patien t: Hakan Billings MR#: [id number] : 1940 Acct:H [id number] Age/Se x: 83 / M ADM Date: Loc: HE.OR Attend ing Dr: Alysisa Reyes MD Orderi ng Physic natividad: Alyssia Reyes MD Date of Servic e: Proced ure(s) : IR fluoro scopy <1hr Access ion Number (s): [id number] H cc: Jacki Nicole EXAM: IR fluoro scopy <1hr CLINIC AL INDICA TION: CAUDAL LUX FINDIN GS: C-arm fluoro scopy was provid ed. Cumula tive dose 0.78 mGy. 2 spot fluoro scopic images were submit jd. Inject ion was perfor med by Dr. Rekha Reyes . Please see Dr. Reyes 's proced ure note. Electr onical ly Signed in Fernandez cribe By Colette Medel MD, MD 002 IR/IR fluoro scopy <1hr IMPRES ANDRIA: Fluoro scopic guidan ce was provid ed for Dr. Reyes for inject ion. Dictat ed By: Colette Medel MD Signed By: 1020 DD/DT: 0835 TD/TT: 0836 Transc riptio nist: [facility] [email or web address] [address] [facility], [place], [address], 11/24/2023 10:56:05 Result Notes None recorded. 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 Tri DiVito, DO [address] [facility] [place], [address], [facility] 3 09:54:49 Benign prostatic hyperplasia 064215011 Active 2022 Tri DiVito, DO [address] [facility] [place], [address], [facility] 3 09:59:30 Gastroesopha geal reflux disease 367538520 Active 2022 Tri DiVito, DO [address] [facility] [place], [address], [facility] 3 09:59:22 Moderate persistent asthma 914444506 Active 2022 Tri DiVito, DO [address] [facility] [place], [address], [facility] 3 09:59:59 Chronic constipation 233239588 Active 2022 Tri DiVito, DO [address] [facility] [place], [address], [facility] 3 10:00:19 Glaucoma 27476684 Active 2022 Tri DiVito, DO [address] [facility] [place], [address], [facility] 3 10:01:51 Tear film insufficienc y 93984636 Active 2022 Tri DiVito, DO [address] [place], [address], [facility] 3 10:02:00 Seizure disorder 424321514 Active 2022 DANYA Gale [facility] 08:11:33 Problem Notes None recorded. Procedures Surgical History Date Name Laterality Status Provider Name and Address Organization Details Recorded Time 03/08/19 25 Upper gi endoscopy performed completed DANYA Gale [facility] 03/17/2024 07:43:57 01/12/20 24 Mini-Mental State Exam (MMSE) completed Torie Christy [facility] 01/12/2024 09:07:44 01/12/20 24 Instrumental Activities of Daily Living completed Torie Christy [facility] 01/12/2024 09:05:40 01/12/20 24 Activities of Daily Living Scale completed Torie Christy [facility] 01/12/2024 09:04:49 11/23/19 24 injection of steroid completed Etelvina Montenegro [employer] OPER[employer] [facility] 11/23/2023 15:42:29 11/23/19 24 injection of steroid completed Etelvina Montenegro [facility] 11/23/2023 15:44:44 11/23/19 24 lumbar epidural steroid injection completed Etelvina Montenegro [facility] 11/23/2023 15:46:39 09/09/19 24 epidural steroid injection completed Alejandra Odell [facility] 09/09/2023 10:01:24 02/24/19 24 upper GI endoscopy w/biopsy completed Torie Christy [facility] 03/01/2023 08:42:56 01/09/20 23 Mini-Mental State Exam (MMSE) completed DO Ute Lo[facility] [place], [address], [facility] 01/10/2023 18:38:43 01/09/20 23 Instrumental Activities of Daily Living completed DO Ute Loera [facility] [place], [address], [facility] 01/10/2023 18:39:41 01/09/20 23 Activities of Daily Living Scale completed Tri Singh DO [address] [place] [address], [address], [facility] 01/10/2023 18:39:21 03/22/19 19 Trigger Point Injection completed Alyssia Reyes MD [address] [place] [address], [address], [facility] 03/22/2018 11:47:22 02/08/18 60 hernia repair completed Torie Christy [facility] 07/17/2022 09:11:42 cataract completed Torie Christy [facility] 07/17/2022 09:11:53 Appendectomy completed Torie Christy [facility] 07/17/2022 09:12:19 hemigastrectomy completed Fawad Glass [facility] 07/17/2022 10:08:20 laminectomy completed Torie Christy [facility] 08/05/2022 08:14:07 left hydrocelectomy completed Debi Posey [facility] 08/05/2022 08:14:24 Imaging Results Imaging Date Name Status LastModified by Organiz ation Details LastModified Time 07/30/2023 MR lumbar spine (C-) CPT 27623 completed [facility] [address] [place], [address], 08/09/2023 13:00:08 09/09/2023 ir fluoroscopy <1HR completed [email or web address] [facility] [address] [place] [address], [address], 09/10/2023 14:31:22 11/23/2023 ir fluoroscopy <1HR completed [email or web address] [facility] [address] [place] [address], [address], 11/24/2023 10:56:05 Procedure Notes None recorded. Medical Equipment None Reported. Allergies No known drug allergies Medications Name Sig Start Date Stop Date Status Note LastModified by Organization Details LastModified Time simvastatin 40 mg tabs 07/27 completed Not Available Not Available Not Available montelukast sodium 10 mg tabs 1 qd 07/17 completed Not Available Not Available Not Available finasteride 5 mg tabs 1 qd 12/13 completed Not Available Not Available Not Available hydroco/apa p tab 7.5-325 07/27 completed Not Available Not Available Not Available zonisamide 100 mg caps 07/27 completed Not Available Not Available Not Available esomeprazol e magnesium 40 mg cpdr 07/27 completed Not Available Not Available Not Available lisinopril 40 mg tabs 07/27 completed Not Available Not Available Not Available ondansetron odt 4 mg tbdp prn 02/25 completed Not Available Not Available Not Available cyclobenzap rine 10 mg tablet 02/22 completed Not Available Not Available Not Available prednisone 10 mg tablet 09/30 completed Not Available Not Available Not Available hydrocodone 5 mg-acetamin ophen 325 mg tablet Take 1 tablet every 8 hours by oral route for 5 days. 06/11 completed Not Available Not Available Not Available ondansetron HCl 8 mg tablet prn 02/22 completed Not Available Not Available Not Available oxcarbazepi ne 300 mg tablet 03/22 completed Not Available Not Available Not Available hydrocodone 10 mg-acetamin ophen 325 mg tablet TAKE 1 TABLET BY MOUTH TWICE A DAY 02/05 completed Not Available Not Available Not Available tramadol 50 mg tablet Take 1 tablet 3 times a day by oral route as needed for 7 days. 05/15 completed Not Available Not Available Not Available simvastatin 40 mg tablet Take 1 tablet every day by oral route for 90 days. active Not Available Not Available No t Available zonisamide 100 mg capsule TAKE 2 CAPSULES DAILY active Not Available Not Available No t Available prednisolon e acetate 1 % eye drops,suspe nsion INSTILL 1 DROP INTO BOTH EYES THREE TIMES A DAY FOR 3 WEEKS THEN D/C 07/17 completed Not Available Not Available Not Available Tylenol 500 mg tablet Take 2 tablets every 6 hours by oral route. active prn for pain Not Available Not Available Not Available hydrocodone 7.5 mg-acetamin ophen 325 mg tablet Take 1 tablet 4 times a day by oral route as needed for 28 days. 08/08 completed Not Available Not Available Not Available simvastatin 20 mg tablet one daily 11/24 completed Not Available Not Available Not Available esomeprazol e magnesium 40 mg capsule,del ayed release Take 1 capsule twice a day by oral route for 90 days. active Not Available Not Available No t Available brimonidine 0.2 % eye drops active Not Available Not Available Not Available montelukast 10 mg tablet TAKE 1 TABLET DAILY active Not Available Not Available No t Available acetaminoph en 300 mg-codeine 60 mg tablet Take 1 tablet 3 times a day by oral route as needed for 7 days. 05/31 completed Not Available Not Available Not Available Tylenol-Cod eine #3 300 mg-30 mg tablet Take 1 tablet 3 times a day by oral route as needed for 7 days. 05/22 completed Not Available Not Available Not Available methylpredn isolone 4 mg tablets in a dose pack 02/22 completed Not Available Not Available Not Available lisinopril 40 mg tablet Take 0.5 tablets every day by oral route for 90 days. active Not Available Not Available No t Available finasteride 5 mg tablet Take 1 tablet every day by oral route for 90 days. 2024 active Not Available Not Available Not Avai lable oxycodone 5 mg tablet 2 daily 02/22 completed Not Available Not Available Not Available duloxetine 30 mg capsule,del ayed release Take 1 capsule every day by oral route as directed for 30 days. 05/02 completed Not Available Not Available Not Available Flovent HFA 110 mcg/actuati on aerosol inhaler Inhale 1 puff twice a day by inhalatio n route. active Not Available Not Available No t Available pregabalin 75 mg capsule Take 1 capsule twice a day by oral route as directed for 28 days. 03/20 completed Not Available Not Available Not Available Lyrica 150 mg capsule Take 1 capsule twice a day by oral route as directed for 30 days. 04/05 completed Not Available Not Available Not Available docusate sodium active Not Available Not Available Not Available Aleve 06/29 completed Not Available Not Available Not Available B Complex-Vit bolanos B12 active Not Available Not Available Not Available Tylenol Extra Strength 07/17 completed Not Available Not Available Not Available lisinopril 40 mg daily 09/30 completed Not Available Not Available Not Available cyclobenzap rine 10 mg, 1 tab in the evening 02/22 completed Not Available Not Available Not Available Aspir-Low one daily active Not Available Not Available Not Available Centrum one daily 01/11 completed Not Available Not Available Not Available Restasis 07/17 completed Not Available Not Available Not Available Alphagan P 0.1 % eye drops INSTILL 1 DROP IN BOTH EYES TWICE DAILY DIRECTED 07/17 completed Not Available Not Available Not Available ProAir HFA 90 mcg/actuati on aerosol inhaler Inhale 2 puffs every 4 hours by inhalatio n route. active Not Available Not Available No t Available ProAir HFA 07/17 completed Not Available Not Available Not Available Provent 50 mcg daily 02/18 completed Not Available Not Available Not Available Retaine HPMC (PF) 0.3 % eye drops active Not Available Not Available Not Available Hysingla ER 20 mg tablet, crush resistant, extended release TAKE 1 TABLET BY MOUTH EVERY DAY 02/05 completed Not Available Not Available Not Available Allergy Relief (fluticason e) 50 mcg/actuati on nasal spray,suspe nsion [place] 1 spray every day by intranasa l route. 01/11 completed Not Available Not Available Not Available Shingrix (PF) 50 mcg/0.5 mL intramuscul ar suspension, kit 11/24 completed Not Available Not Available Not Available Paxlovid 300 mg (150 mg x 2)-100 mg tablets in a dose pack TAKE 3 TABLETS BY MOUTH TWICE A DAY 07/11 completed Not Available Not Available Not Available Vitals Date Recorded Body height Body mass index (BMI) Body weight Oxygen saturation Oxygen saturation in Arterial blood by Pulse oximetry Heart rate Systolic blood pressure Diastolic blood pressure Provider Name and Address Organization Details Last Updated DateTime 4 163.2 cm 20.2 kg/m2 88385.7 g 99 % 99 % 76 /min 130 mm[Hg] 76 mm[Hg] DANYA Gale [facility] 4 11:26:30 Date Recorded Body height Heart rate Systolic blood pressure Diastolic blood pressure Provider Name and Address Organization Details Last Updated DateTime 08/23/2023 163.2 cm 55 /min 143 mm[Hg] 70 mm[Hg] Etelvina Montenegro CNA [facility] 08/23/2023 11:14:20 Date Recorded Body height Heart rate Systolic blood pressure Diastolic blood pressure Provider Name and Address Organization Details Last Updated DateTime 10/25/2023 163.2 cm 56 /min 134 mm[Hg] 66 mm[Hg] Sarah Cardenas [facility] 10/25/2023 09:08:48 Date Recorded Body height Heart rate Systolic blood pressure Diastolic blood pressure Provider Name and Address Organization Details Last Updated DateTime 01/04/2024 163.2 cm 61 /min 123 mm[Hg] 67 mm[Hg] Etelvina Montenegro [facility] 01/04/2024 09:11:25 Date Recorded Body height Body mass index (BMI) Body weight Oxygen saturation Oxygen saturation in Arterial blood by Pulse oximetry Heart rate Systolic blood pressure Diastolic blood pressure Provider Name and Address Organization Details Last Updated DateTime 163.2 cm 20.7 kg/m2 27575.4 8 g 96 % 96 % 63 /min 120 mm[Hg] 78 mm[Hg] Torie Christy [facility] 09:08:16 Social History Question Answer Notes LastModified by Organization Details LastModified Time Tobacco Smoking Status Former Smoker quit many years ago 39 years ago Tri Singh, DO [address] [place], [address], [facility] 07/17/2022 10:04:49 Do You Have An Advance Directive? Yes Ynes Moralez Son Paras Moralez Information not available 07/17/2022 What Is Your Level Of Alcohol Consumption? None Information not available 01/12/2024 Is Blood Transfusion Acceptable In An Emergency? Yes Information not available 07/17/2022 What Is Your Level Of Caffeine Consumption? Moderate 1c Coffee A Day Information not available 01/12/2024 What Is Your Code Status? Full Code Information not available 07/17/2022 What Type Of Diet Are You Following? REGULAR [email or web address] Information not available 07/17/2022 What Is The Highest Grade Or Level Of School You Have Completed Or The Highest Degree You Have Received? 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 16+yearssincelastc igarette [email or web address] Information not available 07/17/2022 Are There Any Guns Present In Your Home? Yes Locked Trigger Guarded Ammo Stored Separately [email or web address] Information not available 07/17/2022 Which Of Your Hands Is Dominant? Right Information not available 07/17/2022 Where Do You Live? SingleLevelHouse Lives With And Daughter Aleisha. Second Daughter Currently Staying With Them. [email or web address] Information not available 07/17/2022 Work Status Retired Information not available 02/18/2018 Living Situation With Spouse Information not available 02/18/2018 Disabled? If Yes, How Long? No Information not available 02/18/2018 Alcohol Use Yes Information not available 02/18/2018 Do You Currently Or Have You Ever Used Recreational Drugs? If Yes, Specify No Information not available 02/18/2018 Any Addiction Or Substance/drug /alcohol Abuse Issues? If Yes, Specify No Information not available 02/18/2018 Tobacco Use (smoking, Smokeless Tobacco) No Information not available 01/12/2024 Date Of Tobacco Screen 01/12/2024 Information not available 01/12/2024 What Was The Date Of Your Most Recent Tobacco Screening? 01/12/2024 [email or web address] Information not available 01/12/2024 How Many Children Do You Have? 3 Two Daughters One Son [email or web address] Information not available 07/17/2022 What Is Your Current Pack Years? [email or web address] Information not available 01/12/2024 Do You Have Any Pets? No [email or web address] Information not available 07/17/2022 What Is Your Relationship Status? [email or web address] [email or web address] Information not available 07/15/2022 Do You Use Your Seat Belt Or Car Seat Routinely? Yes [email or web address] Information not available 07/17/2022 Do You Have Smoke And Carbon Monoxide Detectors In Your Home? No Information not available 07/17/2022 At What Age Did You Start Smoking Tobacco? 14 Information not available 01/12/2024 Are There Any Smokers In Your House? No [email or web address] Information not available 07/17/2022 How Much Tobacco Do You Smoke? No Information not available 01/12/2024 Do You Use Any Illicit Or Recreational Drugs? No Information not available 07/17/2022 How Many Years Have You Smoked Tobacco? 30 Information not available 01/12/2024 Are You Currently In School? No [email or web address] Information not available 07/17/2022 Do You Have Any Dietary Restrictions? No [email or web address] Information not available 07/17/2022 Do You Or Have You Ever Used Any Other Forms Of Tobacco Or Nicotine? No Information not available 07/17/2022 Sex: Male Functional Status Question Answer Note LastModified by Organizat ion Details LastModified Time What is your exercise level? Occasional Outside work [email or web address] Information not available 07/17/2022 Mental Status None recorded. Family History Relationship Description Onset Age of this Age Resolved Age Notes LastModified by Organization Details LastModified Time Father Malignant tumor of lung [email or web address] Not available 08/05 08:17:43 Father Malignant neoplasm of brain [email or web address] Not available 07/17 09:09:47 Mother Amyotrophic lateral sclerosis [email or web address] Not available 08/05 08:16:17 Paternal Grandmother Acute stroke [email or web address] Not availabl e 08/05/2022 08:17:18 Paternal Grandmother Hypertensive disorder [email or web address] Not available 08/05 08:17:29 Maternal Aunt Malignant tumor of lung [email or web address] Not available 08/05 08:17:48 Maternal Aunt Malignant tumor of stomach [email or web address] Not available 08/05 08:18:07 Notes:Parents , One brother has HBP, 2 daughters, one bipolar, diabetes and HBP Medical History Condition Response cancer Y GERD / reflux Y arthritis Y seizures Y asthma Y headaches or migraines Y depression Y high blood pressure Y Immunizations Vaccine Type Date Status Note Provider Nam e and Address Organization Details Recorded Time pneumococcal polysaccharide PPV23 6 completed Torie Christy [facility] [place] 07/15/2022 08:00:47 pneumococcal polysaccharide PPV23 8 completed Torie ABRIL ChristyA [facility] [place] 07/15/2022 08:01:00 zoster recombinant 9 completed Torie RadanniemABRILA [facility] [place] 07/15/2022 08:01:34 zoster recombinant 9 completed Torie Christy [facility] [place] 07/15/2022 08:01:41 COVID-19, mRNA, LNP-S, bivalent, PF, 50 mcg/0.5 mL or 25mcg/0.25 mL dose 3 completed [facility] 07/17/2022 09:27:11 Influenza, high-dose, quadrivalent, PF 0 completed [facility] [place] 07/17/2022 09:27:11 Influenza, high-dose, quadrivalent, PF 1 completed [facility] [place] 07/17/2022 09:27:11 COVID-19, mRNA, LNP-S, PF, 100 mcg/0.5mL dose or 50 mcg/0.25mL dose 1 completed [facility] [place] 07/17/2022 09:27:11 COVID-19, mRNA, LNP-S, PF, 100 mcg/0.5mL dose or 50 mcg/0.25mL dose 1 completed [facility] [place] 07/17/2022 09:27:11 COVID-19, mRNA, LNP-S, PF, 100 mcg/0.5mL dose or 50 mcg/0.25mL dose 2 completed [facility] [place] 07/17/2022 09:27:11 COVID-19, mRNA, LNP-S, PF, 100 mcg/0.5mL dose or 50 mcg/0.25mL dose 1 completed [facility] [place] 07/17/2022 09:27:11 Influenza, high-dose, trivalent, PF 6 completed [facility] [place] 07/17/2022 09:27:11 Influenza, high-dose, trivalent, PF 5 completed [facility] 07/17/2022 09:27:11 Influenza, high-dose, trivalent, PF 8 completed [facility] [place] 07/17/2022 09:27:11 Influenza, high-dose, trivalent, PF 4 completed [facility] 07/17/2022 09:27:11 Influenza, split virus, trivalent, preservative 1 completed [facility] [place] 07/17/2022 09:27:11 Influenza, split virus, trivalent, preservative 2 completed [facility] 07/17/2022 09:27:11 Td (adult), 2 Lf tetanus toxoid, preservative free, adsorbed 9 completed [facility] 07/17/2022 09:27:11 RSV, bivalent, protein subunit RSVpreF, diluent reconstituted, 0.5 mL, PF 3 completed Tri Singh, DO [address] [place] [address], [id number], [facility] 01/12/2024 09:43:40 Influenza, adjuvanted, quadrivalent, PF 3 completed Tri Singh, [address] [place] [address], [place], [id number], [facility] 01/12/2024 09:43:40 Pneumococcal conjugate PCV20, polysaccharide [id number] conjugate, adjuvant, PF 3 completed Sharonyakov mauricio [facility] 01/12/2024 09:49:34 Past Encounters Encounter ID Performer Location Encounter Start Date Encounter Closed Date Diagnosis/Indication Diagnosis SNOMED-CT Code Diagnosis ICD10 Code Diagnosis Note [id number] Alyssia Reyes MD [facility] [address] [place] [address] [place] [address] 02/18/2018 08:36:46 02/18/2018 10:01:41 Lumbar radiculopathy 515171871 M54.16 right Lumbar spondylosis 98168 0009 M47.816 Spinal franco nosis of lumbar region 07763001 M48.061 mod to severe right L5S1 and right L4-5 neuroforam en [id number] Alyssia Reyes MD [facility] [address] [place] [address] [place] [address] 03/22/2018 10:37:28 03/22/2018 11:50:13 Lumbar spondylosis 082718240 M47.816 Spinal franco nosis of lumbar region 10746491 M48.061 mod to severe right L5S1 and right L4-5 neuroforam en Myofascial pain 06639702 9 M79.18 right gluteal [id number] Alyssia Reyes MD [facility] [address] [place] [address] [place] [address] 06/08/2018 14:27:17 06/08/2018 15:27:28 Lumbar spondylosis 458041659 M47.816 Spinal franco nosis of lumbar region 54836773 M48.061 mod to severe right L5S1 and right L4-5 neuroforam en [id number] Alyssia Reyes MD [facility] [address] [place] [address] [place] [address] 09/30/2018 11:40:15 09/30/2018 12:49:53 Lumbar radiculopathy 095202424 M54.16 right Lumbar spondylosis 33076 0009 M47.816 Spinal franco nosis of lumbar region 73635625 M48.061 mod to severe right L5S1 and right L4-5 neuroforam en 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 72605243 M48.02 [id number] MD [facility] [address] [place] [address] [place] [address] 10/26/2018 08:05:36 10/26/2018 09:05:10 Lumbar radiculopathy 689800218 M54.16 right Lumbar spondylosis 66285 0009 M47.816 Spinal franco nosis of lumbar region 24490870 M48.061 mod to severe right L5S1 and right L4-5 neuroforam en 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 99205289 M48.02 multi-leve l neuroforam inal Peripheral vascular disease 892695542 I73.9 [id number] MD [facility] [address] [place] [address] [place] [address] 11/24/2018 10:49:39 11/24/2018 12:17:18 Lumbar radiculopathy 629789753 M54.16 right Lumbar spondylosis 21131 0009 M47.816 Spinal franco nosis of lumbar region 95418201 M48.061 mod to severe right L5S1 and right L4-5 neuroforam en 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 99927887 M48.02 multi-leve l neuroforam inal [id number] MD [facility] [address] [place] [address] [place] [address] 01/12/2019 14:38:11 01/12/2019 15:40:36 Lumbar radiculopathy 688243186 M54.16 right Lumbar spondylosis 81354 0009 M47.257 [id number] MD Srin[facility] [address] [place] [address] [place] [address] 02/22/2019 13:52:37 02/22/2019 14:39:06 Lumbar radiculopathy 303324175 M54.16 right Lumbar spondylosis 58638 0009 M47.605 [id number] MD Srin[facility] [address] [place] [address] [place] [address] 04/05/2019 08:55:52 04/05/2019 09:34:53 Lumbar radiculopathy 133342617 M54.16 right Lumbar spondylosis 20352 0009 M47.851 [id number] Alyssia Reyes MD [facility] [address] [place] [address] [place] [address] 05/03/2019 08:55:50 05/03/2019 10:06:00 Lumbar radiculopathy 777207312 M54.16 right Lumbar spondylosis 13764 0009 M47.495 [id number] Alyssia Reyes MD [facility] [address] [place] [address] 06/06/2019 07:45:48 06/06/2019 10:20:55 Lumbar radiculopathy 147146645 M54.16 right Lumbar spondylosis 59470 0009 M47.772 [id number] Nat Caldwell MD [facility] [address] [place] [address] 06/30/2019 14:23:37 06/30/2019 14:56:27 Removal of jefferson 83063827 Z48.02 jefferson placed 06/24/2019 at [facility], removed without difficulty , wound care reviewed [id number] Alyssia Reyes MD [facility] [address] [place] [address] [place] [address] 07/05/2019 13:44:12 07/05/2019 15:06:21 Lumbar radiculopathy 940419533 M54.16 right Lumbar spondylosis 92369 0009 M47.153 [id number] Alyssia Reyes MD [facility] [address] [place] [address] [place] [address] 07/28/2019 13:32:10 07/28/2019 14:09:52 Lumbar radiculopathy 282819197 M54.16 right Lumbar spondylosis 56423 0009 M47.090 [id number] Alyssia Reyes MD [facility] [address] [place] [address] [place] [address] 08/24/2019 13:20:07 08/24/2019 14:22:38 Lumbar radiculopathy 495896906 M54.16 right Lumbar spondylosis 43554 0009 M47.816 Lumbar post-laminectomy syndrome 441683925 M96.1 Trochanter ic bursitis of right hip 4447560637 18638 M70.61 [id number] Alyssia Reyes MD [facility] [address] [place] [address] [place] [address] 10/18/2019 12:47:33 10/18/2019 14:22:53 Lumbar radiculopathy 775512064 M54.16 right Lumbar spondylosis 96991 0009 M47.816 Lumbar post-laminectomy syndrome 220558125 M96.1 Trochanter ic bursitis of right hip 5542128428 43097 M70.61 [id number] Alyssia Reyes MD [facility] [address] [place] [address] [place] [address] 12/14/2019 13:35:09 12/14/2019 14:09:07 Lumbar radiculopathy 891582670 M54.16 right Lumbar spondylosis 16287 0009 M47.816 Lumbar post-laminectomy syndrome 259926522 M96.1 [id number] Alyssia Reyes MD [facility] [address] [place] [address] [place] [address] 02/06/2020 13:35:35 02/06/2020 14:18:42 Lumbar radiculopathy 961504884 M54.16 right Lumbar spondylosis 11589 0009 M47.816 Lumbar post-laminectomy syndrome 507417314 M96.1 [id number] MD [facility] [address] [place] [address] [place] [address] 02/26/2020 12:41:37 02/26/2020 13:24:44 Lumbar radiculopathy 031488334 M54.16 right Lumbar spondylosis 08218 0009 M47.816 Lumbar post-laminectomy syndrome 439862606 M96.1 Lesion of lumbar spine 195331178 M99.9 [id number] Angelica Sheriff MD [facility] [address] [place] [address] 11/23/2021 09:55:21 11/23/2021 10:41:45 Viral syndrome 369666260 B34.9 -Most likely viral, will send covid test, pt to push fluids and rest. Okay for otc supportive care. Discussed ED indication s and covid precaution s. [id number] Tri Singh [address] [address] 07/17/2022 08:45:20 07/17/2022 10:34:08 Hypertensive disorder 98550003 I10 Controlled Continue lisinopril 40 mg p.o. daily Hyperlipidemia 10301107 E78.5 Controlled Continue simvastati n p.o. dailylipid s 07/17/2022 Lumbar spondylosis 83203 0009 M47.896 Patient ne w to provider [id number] 35973 Z76.89 Health Management Male Over 50 Discussed diet, exercise and safetypros trate screening- need recordscol onoscopy: Performed by Dr BELLAMY- kenny recordsimm unization: utdscreeni ng labs order: due- ordered todayf/u 1 year Benign pro static hyperplasia 480332433 N40.0 Check PSA free and total today 3Co ntinue to follow with Dr. Davis Finasterid e 5mg po daily Chronic constipation 236 432792 K59.09 Controlled Gastroesop hageal reflux disease 669034606 K21.00 Cont esomeprazo le 40mg po daily Glaucoma 59120974 H40.9 Moderate p ersistent asthma 622833501 J45.40 ContolledC ont Flovent HFA 110 mcg 1 puff p.o. 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 Bellamy/Jr [id number] Tri Singh [address] [address] 01/08/2023 13:10:56 01/08/2023 15:51:24 Adult health examination 466177997 Z00.01 Patient should discuss medical decisions with Health Care Proxy. Recommende d screenings included colonoscop y screening age 45, earlier based on family history/ri sk factors; one time screen for hepatitis C if born between 3245-5970 or has risk factors. Recommend annual low-dose CT scan screening for high-risk individual s ages 50 to 80 years with 20 pack-year history of smoking and current smoker or quit within past 15 years. Reviewed vaccines and current recommenda tions. Basic health topics include aerobic exercise, importance of healthy/ba lanced diet and minimizing caffeine and alcohol. Administra tion of diphtheria and tetanus vaccine 60870462 Z23 up to date, TD received 08/03/18.du e next in 07/2028. Administra tion of pneumococcal vaccine 00113250 Z23 If PCV15 is used, this should be followed by a dose of PPSV23 one year later. The minimum interval is 8 weeks and can be considered in adults with an immunocomp romising condition, cochlear implant, or cerebrospi nal fluid leak.If PCV20 is used, a dose of PPSV23 is NOT indicated. ppv23 received 04/09/05 and 11/18/07. Screening for malignant neoplasm of colon 653973870 Z12.11 history of stomach CA in 1993? Viral screening 05681103 4 Z11.59 The USPSTF recommends one time screening for hepatitis C virus (HCV) infection in adults aged 18 to 79 years. Varicella vaccination 68 386542 Z23 series completed 05/12/18, 10/06/18. Smoking mo nitoring status 079829753 Z87.891 Recommend annual low-dose CT scan screening for high-risk individual s ages 55 to 77 years with 30 pack-year history of smoking and current smoker or quit within past 15 years. I have used a decision aid to share decision making with the patient about interventi ons to reduce the risk of dying from lung cancer, including quitting smoking and annual lung cancer screening. The patient is eligible for screening based on age, smoking history, and the absence of signs of symptoms of lung cancer. We discussed the potential harms of screening, including: false positives, follow-up diagnostic testing, overtreatm ent, and total radiation exposure. We provided the patient informatio n about the importance of adherence to annual LDCT screening, the impact of comorbidit ies, and the ability/wi llingness to undergo diagnosis and treatment. After considerin g the patient's unique circumstan rebecca, and the pros and cons of the alternativ es, the patient has decided {{to be screened n ot to be screened*} }. Influenza vaccine needed [id number] 106 Z23 flu vaccines are currently unavailabl e in the office. Advance care planning 71 9478027 Z71.89 - Ynes Moralez Screening for malignant neoplasm of prostate 304555370 Z12.5 For men aged 55 to 69 years, the decision to undergo periodic prostate-s pecific antigen (PSA)-base d screening for prostate cancer should be an individual one. Before deciding whether to be screened, men should have an opportunit y to discuss the potential benefits and harms of screening with their clinician and to incorporat e their values and preference s in the decision. After considerin g the patient's unique circumstan rebecca, and the pros and cons of the alternativ es, the patient has decided . Recent labs: PSA done 07/17/22- 0.29 Benign pro static hyperplasia 972856528 N40.0 PSA done 07/17/22- 0.29Contin ue to follow with Dr. Davis Finasterid e 5mg po daily Hyperlipidemia 85988905 E78.5 Controlled Continue simvastati n p.o. dailylipid s done 07/17/2022 Hypertensive disorder 38 702785 I10 Controlled Continue lisinopril 40 mg p.o. daily Malignant tumor of stomach 133971509 C16.9 Status post hemigastre ctomyConti nue to have monitored by GI Dr. Bellamy/Jr Moderate p ersistent asthma 763792707 J45.40 ContolledC ont Flovent HFA 110 mcg 1 puff p.o. twice dailyCont montelukas t daily Seizure disorder 1141452 02 G40.909 stableCont zonisamide [id number] Tri Singh DO [address] [address] 07/12/2023 11:13:38 07/12/2023 11:56:23 Hypertensive disorder 31724751 I10 Controlled Continue lisinopril 20 mg p.o. daily Lumbar radiculopathy 128 582148 M54.16 L5 radiculopa thy+ severe NF narrowing on Right L5-T6tvtgq t MRIReferra l to neurosurge ry Hyperlipidemia 64660342 E78.5 Controlled Continue simvastati n p.o. dailylipid s done 07/17/2022- due today Anemia 248425445 D64.9 mild with elevated MCV last blood draw [id number] Alyssia Reyes MD [facility] [address] [place] [address] [place] [address] 08/23/2023 10:54:25 08/23/2023 11:48:23 Lumbar radiculopathy 089515918 M54.16 right Lumbar spondylosis 25884 0009 M47.816 Lumbar post-laminectomy syndrome 773434918 M96.1 Trochanter ic bursitis of right hip 5677643591 07243 M70.61 Ischial bursitis 8812366 03 M70.71 M70.72 Osseous an d subluxation stenosis of lumbar intervertebral foramina 7163710363 16462 M99.63 sever right L5S1 [id number] Alyssia Reyes MD [facility] [address] [place] [address] [place] [address] 10/25/2023 08:46:14 10/25/2023 09:50:01 Lumbar radiculopathy 331336320 M54.16 right Lumbar spondylosis 90410 0009 M47.816 Lumbar post-laminectomy syndrome 212477146 M96.1 Trochanter ic bursitis of right hip 1788003839 50723 M70.61 Ischial bursitis 2644235 03 M70.71 M70.72 right Osseous an d subluxation stenosis of lumbar intervertebral foramina 7371675671 76262 M99.63 sever right L5S1 [id number] Tri Singh DO [address] [address] 01/12/2024 08:43:09 01/12/2024 10:28:04 Adult health examination 401888397 Z00.01 Patient should discuss medical decisions with Health Care Proxy. Recommende d screenings included colonoscop y screening age 45, earlier based on family history/ri sk factors; one time screen for hepatitis C if born between 9217-4251 or has risk factors. Recommend annual low-dose CT scan screening for high-risk individual s ages 50 to 80 years with 20 pack-year history of smoking and current smoker or quit within past 15 years. Reviewed vaccines and current recommenda tions. Basic health topics include aerobic exercise, importance of healthy/ba lanced diet and minimizing caffeine and alcohol. Administra tion of diphtheria and tetanus vaccine 01031433 Z23 up to date, TD received 08/03/18.du e next in 07/2028. Administra tion of pneumococcal vaccine 68185223 Z23 Received PPV23 11/18/07 and 04/09/05\Had PVC 20 last year- need records Screening for malignant neoplasm of colon 695915346 Z12.11 history of stomach CA in 1993 Viral screening 95804129 4 Z11.59 The USPSTF recommends one time screening for hepatitis C virus (HCV) infection in adults aged 18 to 79 years. Varicella vaccination 68 121727 Z23 series completed 05/12/18 and 10/06/18. Ophthalmic examination and evaluation 76166765 Z01.00 Last done at [facility] on 12/13/23 Advance care planning 71 5510353 Z71.89 - Ynes Oconnor Ianclaudia Screening for malignant neoplasm of prostate 416264336 Z12.5 PSA completed 07/12/23 and was normal. Influenza vaccine needed 9578257284 106 Z23 Last received 12/10/23 Patient recommende d to go to their local pharmacy to have influenza vaccine administer ed. Discussed importance of influenza vaccine due to the patient's risk of contractin g the disease. A handout was offered to enhance understand ing of the effects and side effects of the vaccine. Hyperlipidemia 88136403 E78.5 Controlled Continue simvastati n p.o. dailylipid s done 07/12/2023 Hypertensive disorder 38 546436 I10 Controlled Continue lisinopril 20 mg p.o. dailycmp done 07/12/23 Moderate p ersistent asthma 458745542 J45.40 ContolledC ont Flovent HFA 110 mcg 1 puff p.o. twice dailyCont montelukas t daily Benign pro static hyperplasia 953489463 N40.0 PSA done 07/12/23- 0.29Contin ue to follow with Dr. Davis Finasterid e 5mg po daily Lumbar spondylosis 00632 0009 M47.816 using lidocaine patch which helps. Actinic keratosis 693846 007 L57.0 frozen with liquid nitrogen Malignant tumor of stomach 554909545 C16.9 Status post hemigastre ctomyConti nue to have monitored by GI Dr. Bellamy/Jr Hurtop hageal reflux disease 941296656 K21.00 Patient with history of stomach CACont esomeprazo le 40mg po BID Depression screening 171 511478 Z13.31 Scored and 8, but this was due to pain and concentrat ion, no signs of depression [id number] Alyssia Reyes MD [facility] [address] [place] [address] [place] [address] 01/04/2024 08:44:36 01/04/2024 09:34:34 Lumbar radiculopathy 145773317 M54.16 right Lumbar spondylosis 80153 0009 M47.816 Lumbar post-laminectomy syndrome 231575988 M96.1 Trochanter ic bursitis of right hip 2433079009 45847 M70.61 Ischial bursitis 0701738 03 M70.71 M70.72 right Osseous an d subluxation stenosis of lumbar intervertebral foramina 4330269888 20223 M99.63 sever right L5S1 Health Concerns Section Related Observation LastModified by Organization Detai ls LastModified Time None Recorded Concern Status LastModified by Organization Details LastModified Time None Recorded Advance Directives Directive Y: Ynes moura Elivn Moralez Payers Encounter Date Sequence Insurance Name Policy Number Policy Rivera Covered Member ID Rivera Member ID Guarantor Name 07/12/2023 1 [place] [employer] Paras Amrit Moralez [id number] Paras Scarale 07/12/2023 2 [employer] OPTIONS (MEDICARE SUPPLEMENT) Paras Moralez [id number] Paras Scarale 08/23/2023 1 [place] [employer] Paras Sosaale [id number] Paras Scarale 08/23/2023 2 [employer] OPTIONS (MEDICARE SUPPLEMENT) Paras Moralez [id number] Paras Scarale 10/25/2023 1 [place] [employer] Paras Moralez [id number] Paras Scarale 10/25/2023 2 [employer] OPTIONS (MEDICARE SUPPLEMENT) Paras Moralez [id number] Paras Scarale 01/04/2024 1 [place] [employer] Paras Moralez [id number] Paras Moralez 01/04/2024 2 [employer] OPTIONS (MEDICARE SUPPLEMENT) Paras Moralez [id number] Paras Moralez 01/12/2024 1 [place] [facility] Paras Moralez [id number] Paras Moralez 01/12/2024 2 [employer] OPTIONS (MEDICARE SUPPLEMENT) Paras Moralez [id number] Paras Moralez Notes Date Note Type Note Provider Name and Address Organization Details Recorded Time 07/12/2023 text/html 82 year old male presents for HTN f/u. Denies CP/SOB/ tinnitus/epistaxis/ palp/dizziness. Doing well on lisinopril. Dealing w/ back pains ?sciatica. Worse on the right leg. Now starting on the left. Only can walk so far. Worse when twisting and bending. Pain in the buttock on the on the right. Patient does have a history of laminectomy. They wanted to do a fusion at [facility] MRI 2020Of important note, there is a transitional vertebral body, labeled asS1, with a rudimentary S1-2 discL5-S1 mild anterolisthesis with enhancing hyperemic endplate changes, enhancementright L5 pedicle, severe right facet DJD and severe right neuroforaminal stenosis.Indeterminate 12 mm enhancing right sacral ala lesion question atypical hemangiomaversus less likely metastatic disease, should be correlated clinically. Furtherevaluation/foll ow-up should be based upon clinical risk of cancer. Tri Singh, DO [address] [facility], [place], [id number], [facility] 07/12/2023 11:55:15 08/23/2023 text/html Pain Management: New PatientReported bypatient.What caused your pain?other: (sciatica) Location:Lt buttock down to the knee, Rt buttock down to the foot How long have you had this pain?5+ yrs How often does your pain occur?continuous How long does your pain last?continuous Described your pain:cramping; aching Your HIGHEST pain intensity over the Past Week:10 worst pain Your LOWEST pain intensity over the Past Week:4 Your USUAL pain intensity over the Past Week:5 Your PAIN scale Today:5 Makes pain better?lying down Makes pain worse?walking Interferes with activities:general activity: 7; mood: 7; walking ability: 10; work: 10; relationships with other people: 10; sleep: 8; enjoyment of life: 10 Prior tests?MRI ( -07/30/23) Conditions associated with your pain?difficulty walking Prior treatments?physical therapy ([facility] - 02/2019 NOT HELPFUL); injection(s) (Dr Reyes NOT HELPFUL)Notes:OTC/ Tylenol - SOMEWHAT Signal relief patch- SOMEWHAT Alyssia Reyes MD [address] [place] [address], [id number], [facility] 08/23/2023 11:35:55 10/25/2023 text/html Pain Management: Follow-upReported bypatient.Location:low er back pain radiating into the right leg and right hip - s/p lumbar lux - 80% pain relief for about 3 weeks and then the pain flared up Quality:just a pain that's there, hurts to touch, to walk, migrating over to the left Severity:what number on the pain scale best describe your pain right now?: 5 (pain gets worse as day goes on depending on what he does); what number on the pain scale best describes your least pain? : 0 no pain; what number on the pain scale best describes your worst pain?: 9; what number on the pain scale best describes your averge pain over the last month?: 7 Duration:present for >12 months Timing:constant Progression:no change; decreased Alleviating Factors:injections (helped for about 3 weeks but the pain is back) Aggravating Factors:sitting; walking; able to do some work outside but not much Alyssia Reyes MD [address] [place] [address], [phone], [facility] 10/25/2023 09:48:23 01/04/2024 text/html Pain Management: Follow-upReported bypatient.Location:low er back across buttocks radiates down to the back of thighs s/p caudal lux, gtb inj and ischial bursa inj - over 50% pain relief pain is tolerable Quality:aching; just a pain that's there, hurts to touch, to walk, migrating over to the left Severity:what number on the pain scale best describe your pain right now?: 2; what number on the pain scale best describes your least pain? : (1-2); what number on the pain scale best describes your worst pain?: (6-7); what number on the pain scale best describes your averge pain over the last month?: 4 Duration:present for >12 months Timing:constant Progression:decreased Alleviating Factors:rest; Signal Relief patch (OTC) Aggravating Factors:sitting (too long); walking; laying down/working too long, lifting Pain Relief With Current Medications:No Rx through this office 50% relief from the injection Alyssia Reyes MD [address] [facility] [place], [id number], [facility] 01/04/2024 09:29:02 01/12/2024 text/html Have you fallen in the past 12 months? {{yes* no}}patient states he has fallen a couple of times. 83 yo M presents for Medicare physical.cpe labs completed 07/12/23 Patient states his [employer] company advised him next year Flovent will no longer be covered, will need an alternative. No longer seeing a offset assistant press operator as she retired. Saw Dr. Morgan on 12/13/23, he will be leaving and opening an office [facility] the [facility], there is a provider replacing him but was advised he would no longer need a urologist, was only seeing him for his Finasteride script which was renewed for 1 year already, wondering if [facility] will take this on. Tri Singh DO [address] [facility] [place], [id number], [facility] 01/12/2024 10:27:12
--- OUTSIDE RECORDS SUMMARY | 2024-04-24 11:53 | XMS_ITS | Data Portability ---
Author Organization [facility] People to Remember, [facility] Address [address] [place] [address] Care Team Providers Care Aws Consultant Name Role Phone JEFFYJACKI Primary Care Provider [phone] JACQUELINE REED Supply Person [phone] Assessment Encounter Date Assessment Date Assessment LastModified by Organization Details LastModified Time 01/18/2017 01/18/2017 Mr. Moralez is a 76 year old man who likely suffered an epileptic seizure. He is doing well on Zonisamide 200 mg at bedtime and has had no seizures. We discussed the role of antiepileptic medication in detail today. He would like to continue on the Zonisamide for the time being, despite its potential role in causing some of his current complaints. I did inform him that we could switch medications, which he will consider for the future and he will call me if he decides to do this. I will recheck some blood work today. emcinerny Not available 01/18/2017 10:56:32 04/01/2017 04/01/2017 Mr. Moralez is a 76 year old man with epilepsy.. He did not like the way zonisamide was making him feel as it was aggravating his stomach and causing some nausea. He does have stomach issues at baseline but he believes this medication is making things worse. I will switch him to Oxcarbazepine. Side effects were reviewed. The titration/taper schedule of these 2 medications was written out for him and has been uploaded to his chart. I asked him to contact me if he has any issues or concerns. emcinerny Not available 04/01/2017 14:33:33 07/12/2017 07/12/2017 Mr. Moralez is a 76 year old man with epilepsy. He is now doing well with will zonisamide 200 mg nightly and continue on his for the time being. I'll see him back in one year, sooner if there are any issues. jo Not available 07/12/2017 15:32:22 07/11/2018 07/11/2018 Mr. Moralez is a 77 year old man with epilepsy. He is now doing well with will zonisamide 200 mg nightly and continue on his for the time being. We discussed the use of medication in detail today given that we are considering only taking it for the recommended 2 years previously. After some discussion he will continue on this lifelong. His complaints of weakness precede his most recent brain imaging in September 2016 here at the hospital. If his cervical spine MRI is unrevealing I will likely repeat this, though. jo Not available 07/13/2018 11:28:24 11/20/2019 11/20/2019 This is a telehealth visit, via a telephone encounter, he declined Zoom. The patient understands the risks, benefits and limitations of this type of visit. The patient consents for this visit. This type of visit is being utilized as it was deemed higher risk for this patient to come into the office given the current global pandemic related to COVID-19. During this encounter the patient is located in their home. At the time of this encounter the physician is in the office [facility], [address] [place] [address], [address], [facility], [facility]. The visit began at: 1436 The visit ended at: 1447 Greater than 50% of the time was spent in counseling and coordination of care. The telehealth visit involved the patient. [email or web address] Not available 11/20/2019 14:46:44 Plan of Treatment Reminders Order Date Submit Date Provider Last Modified By Organization Details Last Modified Time Details Appointments None recorded. Lab BMP, serum or plasma 2016 017 [facility], [address] [place], [address], 8 09:54:21 Referral physical therapist referral 2018 019 [facility], [address] [place] [address], [id number], 9 14:39:26 Procedures None recorded. Surgeries None recorded. Imaging MRI, cervical spine, w/o contrast [address] ([facility]), [address] [place] [address], [id number], 9 07:59:58 Medication Orders zonisamide 100 mg capsule 2017 018 INTERFACE [facility], [facility] [address], [address], [id number], 8 15:19:59 oxcarbazep ine 300 mg tablet 2017 018 [id number], [address], [place], [phone], 9 14:01:15 Patient TargetsNo targets recorded. Patient Instructions Encounter Date Encounter Id Patient Instructions Last Modified By Organization Details Last Modified Time 04/01/2017 [id number] epilepsy: care instructions [email or web address] Not available 04/01/2017 13:49:47 11/20/2019 [id number] epilepsy: care instructions [email or web address] Not available 11/20/2019 14:37:34 Reason for Referral Physical Therapist Referral for Cervical radiculopathy Referring Physician: Daren Page, Neurology, Encounter Date: 07/11/2018 Results Created Date Observation Date Name Description Value Unit Range Abnormal Flag Note LastModifiedBy Organization Detail LastModifiedTime 12/17/19 19 12/16/2018 cyn quintero am [facility] [address] [place] [id number] TOYIN T: CLYDE ZHANG REG REF/ : WPAT 6735 HEART RATE 53 RR Interv al 1132 Atrial Rate 53 P-R Interv al 160 P Durati on 126 P Horizo ntal Galt -48 P Front Galt 36 Q Onset 499 QRSD Interv al 92 QT Interv al 426 QTcB 400 QTcF 409 QRS Horizo ntal Galt -28 QRS Galt 18 I-40 Horizo ntal Galt 20 I-40 Front Galt 49 T-40 Horizo ntal Galt -78 T-40 Front Galt 18 T Horizo ntal Galt 35 T Wave Galt 34 S-T Horizo ntal Galt 53 S-T Front Galt 50 ECG Severi ty - NORMAL ECG - ECG Impres analia Sinus rhythm _ (Cyn matias Signed by) Trans D T: 1312 Signed D T: 7497 Report #: [id number] Orderi ng physic natividad: Mario henson Other provid ers: Mario henson, Mario henson, , Jacki Rivera , , , [address] (Radiology) [address] [place] [address], [facility], 12/17/2018 12:52:07 Result Notes None recorded. Problems Name Problem SNOMED Code Status Onset Date Resolution Date Notes Provider Name and Address Organization Details Recorded Time Seizure 39548066 Active 017 CHRIS SOTO MD [address] [place] [address], [phone] , [facility] 10/19/2016 10:07:18 Epilepsy 60106745 Active 018 Daren Page PA-C [address] [place] [address], [phone] , [facility] 07/12/2017 15:16:50 Problem Notes None recorded. Procedures Surgical History None recorded. Imaging Results Imaging Date Name Status LastModified by Organization Details LastModified Time 12/16/2018 electrocardiogram completed [address] (Radiology) [address] [place] [address], [id number], 12/17/2018 12:52:07 Procedure Notes None recorded. Medical Equipment None Reported. Allergies No known drug allergies Medications Name Sig Start Date Stop Date Status Note LastModified by Organization Details LastModified Time apap/codein e tab 300-60mg 11/19 completed Not Available Not Available Not Available oxycodone hydrochlori de 5 mg tabs 11/19 completed Not Available Not Available Not Available hydroco/apa p tab 5-325mg 11/19 completed Not Available Not Available Not Available hydroco/apa p tab 10-325mg 11/19 completed Not Available Not Available Not Available duloxetine hcl 30 mg cpep 11/19 completed Not Available Not Available Not Available cyclobenzap rine hydrochlori de 10 mg tabs 11/19 completed Not Available Not Available Not Available simvastatin 40 mg tabs 11/19 completed Not Available Not Available Not Available shingrix 50 mcg/0.5ml susr 11/19 completed Not Available Not Available Not Available apap/codein e tab 300-30mg 11/19 completed Not Available Not Available Not Available montelukast sodium 10 mg tabs 11/19 completed Not Available Not Available Not Available finasteride 5 mg tabs active Not Available Not Available No t Available methylpredn isolone dose pack 4 mg tbpk 11/19 completed Not Available Not Available Not Available hydroco/apa p tab 7.5-325 11/19 completed Not Available Not Available Not Available zonisamide 100 mg caps 11/19 completed Not Available Not Available Not Available flovent hfa 110 mcg/act aero 11/19 completed Not Available Not Available Not Available esomeprazol e magnesium 40 mg cpdr 11/19 completed Not Available Not Available Not Available lisinopril 40 mg tabs active Not Available Not Available N ot Available pregabalin 150 mg caps 11/19 completed Not Available Not Available Not Available prednisone 10 mg tabs 11/19 completed Not Available Not Available Not Available pregabalin 75 mg caps 11/19 completed Not Available Not Available Not Available ondansetron hydrochlori de 8 mg tabs 11/19 completed Not Available Not Available Not Available ondansetron odt 4 mg tbdp 11/19 completed Not Available Not Available Not Available tramadol hcl 50 mg tabs 11/19 completed Not Available Not Available Not Available hysingla er 20 mg t24a 11/19 completed Not Available Not Available Not Available simvastatin 20 mg tabs 11/19 completed Not Available Not Available Not Available cyclobenzap rine 10 mg tablet 11/19 completed Not Available Not Available Not Available prednisone 10 mg tablet 11/19 completed Not Available Not Available Not Available levetiracet am 500 mg tablet TK 1 T PO BID 01/18 completed Not Available Not Available Not Available hydrocodone 5 mg-acetamin ophen 325 mg tablet TK 1 T PO Q 8 H FOR 5 DAYS 11/19 completed Not Available Not Available Not Available ondansetron HCl 8 mg tablet 11/19 completed Not Available Not Available Not Available oxcarbazepi ne 300 mg tablet Take 1 tablet twice daily for a week, then 1.5 tablets twice daily for a week, then 2 tablets twice daily 07/11 completed Not Available Not Available Not Available acetaminoph en 300 mg-codeine 30 mg tablet TK 1 T PO TID FOR 7 DAYS PRN 11/19 completed Not Available Not Available Not Available hydrocodone 10 mg-acetamin ophen 325 mg tablet TK 1 T PO QID FOR 13 DAYS PRN 11/19 completed Not Available Not Available Not Available tramadol 50 mg tablet TK 1 T PO TID FOR 7 DAYS PRN 11/19 completed Not Available Not Available Not Available simvastatin 40 mg tablet active Not Available Not Available Not Available zonisamide 100 mg capsule TAKE 2 CAPSULES BY MOUTH EVERY DAY active Not Available Not Available No t Available hydrocodone 7.5 mg-acetamin ophen 325 mg tablet TK 1 T PO QID PRN 11/19 completed Not Available Not Available Not Available simvastatin 20 mg tablet 11/19 completed Not Available Not Available Not Available esomeprazol e magnesium 40 mg capsule,del ayed release active Not Available Not Available Not Available montelukast 10 mg tablet active Not Available Not Available Not Available acetaminoph en 300 mg-codeine 60 mg tablet TK 1 T PO TID FOR 7 DAYS PRN 11/19 completed Not Available Not Available Not Available Aspir-81 mg tablet,celeste yed release Take 1 tablet every day by oral route. active Not Available Not Available No t Available methylpredn isolone 4 mg tablets in a dose pack USE UTD ACCORDING TO PACKAGE INSTRUCTI ONS 11/19 completed Not Available Not Available Not Available lisinopril 40 mg tablet 11/19 completed Not Available Not Available Not Available ondansetron 4 mg disintegrat ing tablet DIS 1 T ON THE TONGUE TID FOR 5 DAYS 11/19 completed Not Available Not Available Not Available fluticasone propionate 50 mcg/actuati on nasal spray,suspe nsion [place] 1 spray every day by intranasa l route. active Not Available Not Available No t Available finasteride 5 mg tablet 11/19 completed Not Available Not Available Not Available tobramycin 0.3 %-dexametha sone 0.1 % eye drops,suspe nsion 01/18 completed Not Available Not Available Not Available oxycodone 5 mg tablet TK 1 T PO BID. MAX SCHERER AMOUNT 10MG 11/19 completed Not Available Not Available Not Available duloxetine 30 mg capsule,del ayed release TK 1 C PO QD UTD 11/19 completed Not Available Not Available Not Available Flovent HFA 110 mcg/actuati on aerosol inhaler active Not Available Not Available Not Available pregabalin 75 mg capsule TK 1 C PO BID UTD 11/19 completed Not Available Not Available Not Available pregabalin 150 mg capsule TK 1 C PO BID UTD 11/19 completed Not Available Not Available Not Available Aleve 1 BID 11/19 completed Not Available Not Available Not Available Centrum Silver active Not Available Not Available Not Available ProAir HFA 90 mcg/actuati on aerosol inhaler Inhale 2 puffs every 4 hours by inhalatio n route. active Not Available Not Available No t Available Refresh Classic (PF) 11/19 completed Not Available Not Available Not Available Hysingla ER 20 mg tablet, crush resistant, extended release TAKE 1 TABLET(S) EVERY 24 HOURS BY ORAL ROUTE DIRECTED FOR 7 DAYS. active Not Available Not Available No t Available Shingrix (PF) 50 mcg/0.5 mL intramuscul ar suspension, kit ADM 0.5ML IM UTD 11/19 completed Not Available Not Available Not Available Fluzone High-Dose (PF) 180 mcg/0.5 mL intramuscul ar syringe ADM 0.5ML IM UTD 07/11 completed Not Available Not Available Not Available Fluzone High-Dose (PF) 180 mcg/0.5 mL intramuscul ar syringe ADM 0.5ML IM UTD 11/19 completed Not Available Not Available Not Available Fluzone High-Dose Quad 2020-21 (PF) 240 mcg/0.7 mL IM syringe ADM 0.7ML IM UTD 11/19 completed Not Available Not Available Not Available Vitals Date Recorded Body weight Body mass index (BMI) Body height Provider Name and Address Organization Details Last Updated DateTime 11/20/2019 33876.01 g 21 kg/m2 167.64 cm Randa Abarca [facility] 11/20/2019 14:27:36 Date Recorded Body weight Body height Body mass index (BMI) Oxygen saturation Oxygen saturation in Arterial blood by Pulse oximetry Heart rate Systolic blood pressure Diastolic blood pressure Provider Name and Address Organization Details Last Updated DateTime 7 19632.5 6 g 167.64 cm 22 kg/m2 97 % 97 % 65 /min 126 mm[Hg] 70 mm[Hg] Yohana Walker [facility] 7 08:23:32 Date Recorded Body height Body mass index (BMI) Body weight Oxygen saturation Oxygen saturation in Arterial blood by Pulse oximetry Heart rate Systolic blood pressure Diastolic blood pressure Provider Name and Address Organization Details Last Updated DateTime 8 167.64 cm 22 kg/m2 02030.5 6 g 100 % 100 % 60 /min 136 mm[Hg] 79 mm[Hg] Yohana Walker [facility] 8 13:31:29 Date Recorded Body height Body mass index (BMI) Body weight Oxygen saturation Oxygen saturation in Arterial blood by Pulse oximetry Heart rate Systolic blood pressure Diastolic blood pressure Provider Name and Address Organization Details Last Updated DateTime 8 167.64 cm 21.6 kg/m2 68271.3 8 g 100 % 100 % 63 /min 146 mm[Hg] 81 mm[Hg] Yohana Walker [facility] 8 15:12:02 Date Recorded Body height Body mass index (BMI) Body weight Oxygen saturation Oxygen saturation in Arterial blood by Pulse oximetry Heart rate Systolic blood pressure Diastolic blood pressure Provider Name and Address Organization Details Last Updated DateTime 9 167.64 cm 21 kg/m2 16102.0 1 g 99 % 99 % 63 /min 162 mm[Hg] 84 mm[Hg] Randa Abarca [facility] 9 14:01:46 Social History Question Answer Notes LastModified by Organizat ion Details LastModified Time Tobacco Smoking Status Former Smoker quit 34 years Yohana Walker [facility] 10/19/2016 09:36:32 Do You Have An Advance Directive? Yes Information not available 11/20/2019 What Is Your Level Of Alcohol Consumption? Occasional Rarely [email or web address] Information not available 10/19/2016 Animal Exposure? No Information not available 11/20/2019 Are You Blind Or Do You Have Difficulty Seeing? No Information not available 07/11/2018 What Is Your Level Of Caffeine Consumption? Occasional [email or web address] Information not available 10/19/2016 How Much Tobacco Do You Chew? None Information not available 11/20/2019 Are You Deaf Or Do You Have Serious Difficulty Hearing? Yes [email or web address] Information not available 10/19/2016 Do You Or Have You Ever Used E-cigarettes Or Vape? Never Used Electronic Cigarettes Information not available 11/20/2019 Which Of Your Hands Is Dominant? Right Information not available 11/20/2019 Live Alone Or With Others? With Others Information not available 11/20/2019 In The Last 14 Days, Has The Patient Had Contact With A COVID-19 Positive Patient Or A COVID-19 Suspect Patient Awaiting Test Results? No Information not available 11/20/2019 If Pulse Oximetry Was Done: Is The Patient's Sp02 Less Than 93% On Room Air? No Information not available 11/20/2019 Does The Patient Have At Least TWO Of These Symptoms? Diarrhea, Chills, Muscle Pain, Repeated Shaking & Chills, Headache, Sore Throat, Or New Loss Of Taste/Smell No Information not available 11/20/2019 Marital Status Informatio n not available 11/20/2019 What Was The Date Of Your Most Recent Tobacco Screening? 11/20/2019 Information not available 11/20/2019 Do You Or Have You Ever Used Smokeless Tobacco? Never Used Smokeless Tobacco Information not available 11/20/2019 Has Tobacco Cessation Counseling Been Provided? No Information not available 11/20/2019 How Many Years Have You Smoked Tobacco? 30 Information not available 11/20/2019 Sex: Unknown Functional Status Question Answer Note LastModified by Organizat ion Details LastModified Time Do you have difficulty walking or climbing stairs? No soentimes [email or web address] Information not available 10/19/2016 Urinary incontinence assessment performed? No Information not available 07/11/2018 Do you have difficulty doing errands alone? No Information not available 07/11/2018 Are you able to care for yourself? Yes Information n ot available 11/20/2019 Do you have difficulty dressing or bathing? No Information not available 10/19/2016 Mental Status Question Answer Note LastModified by Organization D etails LastModified Time Do you have difficulty concentrating, remembering or making decisions? Yes Information no t available 10/19/2016 Family History Relationship Description Onset Age of this Age Resolved Age Notes LastModified by Organization Details LastModified Time Father Malignant neoplastic disease [email or web address] Not available 2016 10:01:54 Medical History Condition Response Cancer Y High Blood Pressure (Hypertension) Y Hypercholesterolemia Y GERD/Reflux Y Past Encounters Encounter ID Performer Location Encounter Start Date Encounter Closed Date Diagnosis/Indication Diagnosis SNOMED-CT Code Diagnosis ICD10 Code Diagnosis Note [id number] CHRIS SOTO MD neurology - [facility] - office [address] [place] [address],[address] [place] [address] 10/19/2016 09:15:33 10/19/2016 10:35:07 Seizure 88441561 R56.9 Mr. Moralez had an episode of loss of consciousn ess which sounds consistent with an epileptic seizure. The etiology is not clear. Since he is having side effects from the levetirace tian I have suggested that we switch him to zonisamide . There is an interactio n with the lisinopril so we will need to monitor his kidney function. I will check a basic metabolic panel in one month. If he has any issues with the zonisamide he should contact me. I have given him a tapering schedule for the levetirace tian. He will take the same dose of the medication for 1 week then take 250 mg twice a day for 1 week then 250 mg daily for 1 week then stop. I do not recommend any additional imaging. I have informed him again of the [facility] Registry of motor vehicles policy that he is unable to drive for 6 months from the date of the event. He can also return to work in 2 weeks. He is agreeable to this. He really does not have any restrictio ns. Other seizure precaution s were discussed such as not going up on ladders and not swimming alone. If he has any concerns prior to the next appointmen t he should contact me. [id number] Daren Page PA-C neurology - [facility] - office [address] [place] [phone] 01/18/2017 08:10:40 01/18/2017 08:55:27 Seizure 65949317 R56.9 [id number] Daren Page PA-C neurology - [facility] - office [address] [place] [phone] 04/01/2017 13:10:30 04/01/2017 13:53:16 Epilepsy 69413346 G40.459 [id number] Daren Page PA-C neurology - [facility] - office [address] [place] [phone] 07/12/2017 14:57:44 07/12/2017 15:25:49 Epilepsy 63166001 G40.994 [id number] Daren Page PA-C neurology - [facility] - office [address] [place] [phone] 07/11/2018 13:12:02 07/11/2018 14:39:59 Epilepsy 90884845 G40.909 Cervical radiculopathy 28787035 M54.12 [id number] CHRIS SOTO MD neurology - [facility] - office [address] [place] [phone] 11/20/2019 14:25:29 11/20/2019 14:51:14 Epilepsy 76419543 G40.909 Mr. Moralez had one, possibly 2 seizures in 2017. He has been stable on zonisamide since then. He was initially on levetirace tian which caused him to have intolerabl e side effects of mood disturbanc e. I do think that he should continue on the zonisamide long-term. He is reluctantl y agreeable to this. I did discuss the fact that if he were to stop the medication and he had a seizure than he cannot drive for 6 months. Urine if he wants stop the medication he would have to stop driving for 3 months. My recommenda tion is to continue the medication . Follow-up will be in a year, sooner if needed. Health Concerns Section Related Observation LastModified by Organization Detai ls LastModified Time None Recorded Concern Status LastModified by Organization Details LastModified Time None Recorded Advance Directives Directive Y: Payers Encounter Date Sequence Insurance Name Policy Number Policy Rivera Covered Member ID Rivera Member ID Guarantor Name 01/18/2017 1 [place] [employer] [place] Paras Moralez [id number] [facility] 01/18/2017 2 [employer] - OPTIONS Paras Sosaale [id number] [facility] 04/01/2017 1 [place] Paras Moralez [id number] Paras Scarale 04/01/2017 2 [employer] - OPTIONS Paras Moralez [id number] Paras Scarale 07/12/2017 1 [place] Paras Moralez [id number] Paras Scarale 07/12/2017 2 [employer] - OPTIONS Paras Moralez [id number] Paras Scarale 07/11/2018 1 [place] Paras Moralez [id number] Paras Scarale 07/11/2018 2 [employer] - OPTIONS Paras Scarale [id number] Paras Scarale 11/20/2019 1 [place] Paras Moralez [id number] [facility] 11/20/2019 2 [employer] - OPTIONS Paras Scarale [id number] [facility] Notes Date Note Type Note Provider Name and Address Organization Details Recorded Time 01/18/2017 text/html Mr. Moralez is a 76 year old man here for follow-up of what was very likely an epileptic seizure. He is accompanied by his to today's visit. He is currently taking zonisamide 200 mg at bedtime and denies any new seizures. He thinks this medicine is causing him to have some mood issues, but nothing like he experienced with the levetiracetam. He also mentions that his eyes ache, and he does not see the way he normally does. He thinks this is due to the medicine. He is seeing his eye tomorrow and is having a dilated exam. He says that he got the lab work done that Dr. Soto ordered. He has not noticed any other issues from the medication including kidney stones. He has no other questions, concerns, or complaints today. Daren Page PA-C [address] [place] [address], [phone], [facility]. 01/18/2017 10:58:55 04/01/2017 text/html Mr. Moralez is a 76 year old man with epilepsy here to discuss his medication. He feels the zonisamide is upsetting his stomach and he would like to switch to a different medication. He has had no seizures. He is currently taking 200 mg at bedtime. Daren Page PA-C [address] [place], [phone], [facility]. 04/01/2017 14:34:02 07/12/2017 text/html Mr. Moralez is a 76 year old man with epilepsy. We previously tried to switch his medication from zonisamide 200 mg at bedtime to oxcarbazepine but he was unable to tolerate the latter so he went back to the former. He changed the timing of his esomeprazole and has found that he does not have any issues with his stomach referable to the zonisamide any longer. He has had no seizures. He is generally doing very well and has no questions, concerns, or complaints today. Daren Page PA-C [address] [place], [phone], [facility]. 07/12/2017 15:32:44 07/11/2018 text/html Mr. Moralez is a 76 year old man with epilepsy. He is doing well on Zonisamide 200 mg at bedtime. He has had no seizures. He is generally doing very well but says he is concerned about the strength in his hands. He feels he has none and gives the example of having difficulty drawing back his compound bow or pulling the slide on his pistols. This is been happening for quite some time but is worst in the past few months. He denies other weakness or specific precipitating event. He denies bowel or bladder dysfunction, saddle anesthesia, or fine motor skill deficit. Daren Page PA-C [address] [place], [phone], [facility]. 07/13/2018 11:29:31 11/20/2019 text/html Mr. Moralez retu rns to the office today via an audio only telehealth encounter. He reports no seizures. He was last seen in July 2018. He says he is doing okay on the current medication. He denies any major issues with it. He does not like being on medication. He says he has been put on more medicine recently because of a failed back surgery from last year. This makes him feel depressed. He does not like taking medications. He also is down about his job. His employer required a letter in which I cleared him for using heavy machinery. The reviewer denied his request to operate heavy machinery because he had a seizure in 2017. This has made him feel unhappy. CHRIS SOTO MD [address] [place], [phone], [facility]. 11/20/2019 15:46:42
== END 2024-04-24 11:56 | disposition home or self-care (01) ==
LOC: HO.HNS 10:31
PROVIDERS: Referring Provider Family Medicine; Visit Provider Physician Assistant
DX: M43.16 Spondylolisthesis, lumbar region (principal)
CPT/HCPCS: 99204

== ENCOUNTER → 2024-04-24 11:55 | Outpatient (BNV) | payer MEDICARE, SELFPAY | PROVIDERS: Referring Provider Family Medicine; Visit Provider Radiology Diagnostic Radiology | DX: M51.360 Other intervertebral disc degeneration, lumbar region with discogenic back pain only (principal) | CPT/HCPCS: 72110 ==

== ENCOUNTER 2024-11-24 13:10 | Outpatient (AMB) | payer MEDICARE, SELFPAY ==
--- NOTE | 2024-11-24 13:29 | A.SPINEOV_ITS ---
Intake Visit Reasons: low back pain Intake Note: Mr. Moralez is here today c/o low back pain. Coverage Specialist Required: No Allergies No Known Allergies Allergy (Verified 04/24/24 10:50) Assessment & Plan Assessment & Plan (1) Spondylolisthesis, lumbar region: Code(s): M43.16 - Spondylolisthesis, lumbar region Category: Medical Plan Mr Moralez is here in follow-up. Please refer to my last note for the specifics of his problem, however he has had persistent right leg pain despite having had decompression done at L5-S1 by Dr. Ward. We had previously offered him a right-sided L5-S1 transforaminal lumbar interbody fusion, but his was having surgery so we had to postpone. In the interim, he was doing some lifting of heavy would and experienced new pain radiating down his left anterior thigh in addition to his chronic right leg pain. So far he has been taking Tylenol and just basically trying to deal with it. It still continuing to aggravate him a however. On exam he has no focal weakness and no significant reflex changes. His new MRI done at [place] shows that he has a small tiny fragment on the left at L2-3 which is tucked under the nerve root probably compressing and irritating the left L3 nerve root slightly. Obviously he is still has the severe compression of the right L5 nerve in the foramen. He has transitional anatomy which will be noted at the time of surgery. I have tentatively scheduled him to undergo the right L5-S1 transforaminal lumbar interbody fusion on January 16. I will show his films with Dr. Stoll to see if he thinks we will do the herniated disc on the left at L2-3 the same time. It is relatively small and I suspect because he has only had the symptoms for a month there is a good chance it might go away. I will call the patient once I have a chance to review everything with Dr. Stoll. He will stop his aspirin 1 week before surgery. We quoted success rate at 90%. The patient was given risk and benefits of [ ]surgery including but not limited to infection, hematoma, nerve injury, durotomy, weakness, bowel/bladder injury, persistent pain, and pseudoarthosis or instrumentation failure. We also discussed the option to continue with conservative treatment and patient wishes to proceed with surgery. They are aware they should stop NSAIDs 7 days prior to surgery. All questions were answered to the best of our ability. If there is anything about this patients medical history that we have overlooked or concerns you have about us proceeding with surgery we would appreciate any input you can offer Total amount of time spent in this visit was 20 minutes in discussion of symptoms, lumbar MRI imaging results and subsequent plan of care León Stoll MD,PhD [facility] Coding Level of Care Code Est Pt Level 3 (73462) Diagnoses Spondylolisthesis, lumbar region M43.16
--- OUTSIDE RECORDS SUMMARY | 2024-11-24 15:50 | XMS_ITS | Encounter Summary ---
Author Organization [facility] Address [address] [place] [address] Care Team Providers Care Derrick Builder Name Role Phone Beaujo-annTriDayan MERCADO Primary Care Provider [phone] Encounter Details Date Type Department Care Team (Latest Contact Info) Description 01/22/2020 Community Orders [facility] EpicCare Link [address] [place] [address] Thiago Bellamy MD [address] [place] [phone] Pre-procedural laboratory examinations (Primary Dx) Social History [...] of this encounter Results * Due to [place] state law, this organization might not be sharing negative HIV tests. * COVID-19 PCR, Pre-Procedure (Asymptomatic), BAFFLE INSTALLER/OP/Saliva (03/18/2020 8:40 AM EST) SARS CoV 2 RNA, RT PCR Not Detected Not Detected 03/18/2020 7:58 PM EST [facility] Comment:A Not Detected [...] AM EST 03/18/2020 8:40 AM EST Narrative [facility] - 03/18/2020 7:58 PM EST These tests were developed, validated, and their performance characteristics determined by the [facility] Virology Laboratory at [facility] under CLIA [id number]. They have not been cleared or approved by the U.S. Food and Drug Administration (FDA). FDA Policy for Diagnostic Tests for Coronavirus Disease-2019 during the Public Health Emergency issued April 24, 2019, is followed. us Thiago Bellamy MD LAB BODY FLUIDS AND STOOLS ORDER NORM Final Result [facility] [address] [place] [address], documented in this encounter Visit Diagnoses Diagnosis Pre-procedural laboratory examinations- Primary Pre-procedural laboratory examination documented in this encounter Care Teams Derrick Builder Relationship Specialty Start Date End Date Tri Lowe DO [address] [place] [phone] PCP - General Family Medicine 03/23/24 documented as of this encounter
--- OUTSIDE RECORDS SUMMARY | 2024-11-24 15:50 | XMS_ITS | Clinical Summary ---
Author Organization [facility] Address [address] [place] [address] Care Team Providers Care Dental Practitioner Name Role Phone Tri Lowe DO Primary Care Provider [phone] Allergies Active Allergy Reactions Criticality Noted Date [...] 63 07/29/2017 10:27 AM EDT Temperature 36.7 C (98 F) 12/08/2018 2:18 PM EDT Respiratory Rate 18 [...] Td Vaccines (1 - Tdap) 08/04/2018 08/03/2018 Alcohol/Substance Use Screening 02/09/2024 Depression Screening and Follow-Up 02/09/2024 Fall Risk Screening 02/09/2024 Health Care Proxy Review 02/09/2024 Social Drivers of Health Annual Screening 02/09/2024 COVID-19 Vaccine ( season) 2024 02/23/2022, 07/09/2021, 01/06/2021, Additional history exists Influenza Vaccine (#1) 2024 , 12/08/2022, 12/11/2020, Additional history exists Zoster Vaccines Completed 10/06/2018, 05/12/2018 RSV Vaccine (60+ years old and patients) Completed 12/08/2022 Pneumococcal Vaccine: 50+ Years Completed 01/13/2023, 11/18/2007, 04/09/2005 Hepatitis B Vaccines Aged Out No long er eligible based on patient's age to complete this topic Insurance MEDICARE [facility] Member Subscriber Plan / Payer (Ef fective 2017-Present) Name:Paras Moralez Relation to Subscriber:Self Name:Paras Moralez Payer ID:[id number] Group ID:Not on file Type:Not on file Address: [address] [place] [phone] Care Teams Dental Practitioner Relationship Specialty Start Date End Date Tri Lowe DO [address] [place] [phone] PCP - General Family Medicine 03/23/24
--- OUTSIDE RECORDS SUMMARY | 2024-11-24 15:50 | XMS_ITS | Patient Health Record ---
Author Organization [facility] Address [address] [place] [address] Care Team Providers Care Marine Design Engineer Name Role Phone Jacki Rivera MD Primary Care Provider Arnold Leach Unavailable [phone] Allergies Allergen (clinical drug ingredient) Drug/Non Drug Allergy documented on EMR Reaction Allergy Type Onset Date Status CONTRAST DYE (IODINE ) (uncoded) Unknown Allergy Active Reason For Referral No Information Medications Medication SIG (Take, Route, Frequency, Duration) Notes Start Date End Date Status Qvar RediHaler 40 MCG/ACT 2 puff(s) inhaled 2 times a day; Duration: 30 day(s) Active Flonase Allergy Relief 50 MCG/ACT 1 spray(s) intranasally once a day; Duration: 30 day(s) Active Simvastatin 10 MG 1 tab(s) orally once a day (at bedtime); Duration: 30 day(s) Active Finasteride 5 MG 1 tab(s) orally once a day; Duration: 30 day(s) Active Centrum Silver 50+Men - 1 tab(s) orally once a day Active Lisinopril 5 MG 1 tab(s) orally once a day; Duration: 30 day(s) Active NexIUM 40 MG 1 ea orally once a day; Duration: 30 day(s) Active Vitamin B Complex 50 MG DAILY *Please review and pick correct strength-formulati on from Medispan options. If intended option is not shown, discontinue and re-order from Quick Search* Active Aleve 220 MG 1-2 tab(s) orally twice a day Active Aspirin 81 81 MG 1 tab(s) orally alt w/ 2 tab(s) every other day; Duration: 30 day(s) Active ProAir RespiClick 108 (90 Base) MCG/ACT 2 puff(s) inhaled twice a day prn; Duration: 30 day(s) Active Problems Problem Type SNOMED Code ICD Code Onset Dates Problem Status W/U Status Risk Notes Problem Dizziness (508067044) Dizziness (780.4) Active confirmed Problem Dizziness and giddiness (456772140) Dizziness and giddiness (780.4) Active confirmed Problem Sensorineural hearing loss, bilateral (041978499) Hearing loss, sensorineural , bilateral (389.18) Active confirmed Plan Of Treatment No Information Insurance Providers Payer Name Payer Address Payer Phone Subscriber Number Group Number Insured Name Patient Relationship to Insured Coverage Start Date Coverage End Date Medicare [employer] [address] [facility], [place] [id number] Paras Moralez Self - patient is the insured [address] [id number] Paras Moralez Self - patient is the insured Medical (General) History Medical History History ICD Code Hypertension Asthma Environmental alllergies Seasonal allergies High cholesterol GERD Stomach Cancer 1993 Surgical History Surgery Date(Month/Year) Appendectomy as a baby Tonsillectomy as a baby Vasectomy Hernia repair x 2 Bilateral cataract repairs x 2 Sutures for chain saw accident Hydrocectomy
--- OUTSIDE RECORDS SUMMARY | 2024-11-24 15:50 | XMS_ITS | Clinical Summary ---
Author Organization [facility] Address [address] [place] [address] Care Team Providers Care Machine Bunch Maker Name Role Phone Jacki Rivera Primary Care Provider [phone] Allergies No known active allergies Medications * [...] 75+ series) 11/10/2015 COVID-19 Vaccine ( - 2024-2 6 season) 2024 Influenza (#1) 2024 HPV Vaccine (No Doses Required) Completed Hep A Aged Out No longer eligi [...] Zoster (Zostavax) Discontinued Insurance MEDICARE PART B [facility] OPTIONS-SUPPLEMENTAL * Guarantor: MANAGEMENT OF TRANSPORTION Account Type Relation to Patient Date of Phone Billing Address [employer] ACCOUNTS PAYABLE [address] [address] Care Teams Machine Bunch Maker Relationship Specialty Start Date End Date Jacki Rivera [facility] [address] [address] PCP - General Family Medicine 01/16/21
--- OUTSIDE RECORDS SUMMARY | 2024-11-24 15:51 | XMS_ITS | Data Portability ---
Author Organization [facility] Address [address] [place] [address] Care Team Providers Care Room Service Runner Name Role Phone TRI SINGH Primary Care Provider TRI SINGH Referring Provider JEFF REYES Pain Management Assessment No assessment recorded. Plan of Treatment Reminders Order Date Submit Date Provider Last Modified By Organization Details Last Modified Time Details Appointments PCP-Medic are Exam-30 Min 2024 09:00A M Tri Singh, DO Not available Not available Not available AMB FOLLOW-UP 15MIN 2025 09:15A M Julian Yi MD Not available Not available Not available Lab urinalysi s, dipstick 2024 025 [facility], [address] [facility], [facility] [address], [address], 10/13/2024 09:32:08 urinalysi s, dipstick 2024 025 BELEN In-Office Order, Internal Use Only DO Not Attach Compendium DO Not Attach Compendium, Do Not Delete/merge, [id number] 09/27/2024 10:44:56 culture, urine 2024 025 [facility], [address] [place], [address], 09/28/2024 20:14:22 CMP, serum or plasma 2024 025 [facility], [address] [place], [address], 07/12/2024 14:30:47 prostate specific Ag, serum or plasma 2024 025 [facility], [address] [place], [address], 07/12/2024 14:28:46 hepatitis C virus Ab, serum 2023 024 [facility], [address] [place], [address], 01/12/2024 17:59:39 CMP, serum or plasma 2023 024 [facility], [address] [place], [address], 01/12/2024 17:54:05 lipid panel, serum 2023 024 [facility], [address] [place], [address], 01/12/2024 17:54:07 CBC w/ auto diff 2023 024 [facility], [address] [place], [address], 01/12/2024 18:11:24 Referral urologist referral 2024 025 [facility], [address] [facility], [place] [address], [place], [address], 10/13/2024 10:36:58 gastroent erologist referral - Due for colon cancer screening . Family history: [address] Gastroenterol ogy, [address] [facility], [facility] [address], [place], [place], [address], 04/18/2024 15:14:18 Procedures None recorded. Surgeries cystoscop y with retrograd e pyelogram (SURG) 2024 025 [email or web address] Julian Yi MD, [address], [place], [address], 10/13/2024 12:06:54 Imaging MRI, lumbar spine, w/o contrast 2024 025 [facility], [address] [facility] [place], [address], 10/17/2024 11:17:11 US, scrotum - Left testicula r pain ? torsion Vs. epididymi tis vs. hydrocele /vericoce le 2024 025 [facility] (Central Scheduling), [address] [facility] [place], [address], 10/01/2024 13:07:19 US, extremity , nonvascul ar, limited - Left groin pain, ? hernia, ?mesh related complicat ions 2024 025 [email or web address] [facility] (Central Scheduling), [address] [facility] [place], [address], 10/02/2024 08:36:26 Medication Orders Celebrex 100 mg capsule 2024 025 [facility], [address] [facility], [place], [address], 10/13/2024 09:32:17 oxycodone 5 mg tablet 2024 025 [facility], [address] [facility] [place], [address], 10/05/2024 09:35:36 cyclobenz aprine 5 mg tablet 2024 025 [facility]/Pharmacy #[id number], [address] [facility] [place], [address], 10/19/2024 05:02:03 Medrol (Prosper) 4 mg tablets in a dose pack 2024 025 [id number], [address] [facility] [place], [address], 10/13/2024 08:54:21 Patient TargetsNo targets recorded. Patient InstructionsNo instructions recorded. Reason for Referral Oncology Social Worker Referral for Screening for malignant neoplasm of colon Due for colon cancer screening. Family history: Referring Physician: Tri Singh [facility], Encounter Date: 01/12/2024 Urologist Referral for Left inguinal pain Referring Physician: Tri Singh [facility], Encounter Date: 10/04/2024 Results Created Date Observation Date Name Description Value Unit Range Abnormal Flag Note LastModifiedBy Organization Detail LastModifiedTime 01/12/20 24 01/12/2024 COMPR EHENS BETO MET. PANEL sodium 142 mmol/ L 136-14 5 normal Not Available [facility] Laboratory Department [address] [place] [address], [address] 01/12/2024 17:54:05 01/12/20 24 01/12/2024 COMPR EHENS BETO MET. PANEL potassium 4.14 mmol/ L 3.5-5. 1 normal Not Available [facility] Laboratory Department [address] [place] [address], [address] 01/12/2024 17:54:05 01/12/20 24 01/12/2024 COMPR EHENS BETO MET. PANEL chloride 107 mmol/ L 98-107 normal Not Available [facility] Laboratory Department [address] [place] [address], [address] 01/12/2024 17:54:05 01/12/20 24 01/12/2024 COMPR EHENS BETO MET. PANEL carbon dioxide 25 mmol/ L 22-29 normal Not Available [facility] Department [address] [place] [address], [address] 01/12/2024 17:54:05 01/12/20 24 01/12/2024 COMPR EHENS BETO MET. PANEL anion gap 14 mmol/ L 10-20 normal Not Available [facility] Department [address] [place] [address], [address] 01/12/2024 17:54:05 01/12/20 24 01/12/2024 COMPR EHENS BETO MET. PANEL blood urea nitrogen 23 mg/dL 8-23 normal Not Available [facility] Laboratory Department [address] [place] [address], [address] 01/12/2024 17:54:05 01/12/20 24 01/12/2024 COMPR EHENS BETO MET. PANEL creatinine 0.86 mg/dL 0.67-1 .17 normal Not Available [facility] Department [address] [place], [address] 01/12/2024 17:54:05 01/12/20 24 01/12/2024 COMPR EHENS [...] mg/g or other marke rs of sweta y damag e Kidne y failu re is less than 15 mL/mi n/1.7 3 squar e meter s This test is not perfo rmed in patie nts under the age of 18. Not Available [facility] Department [address] [place], [address] 01/12/2024 17:54:05 01/12/20 24 01/12/2024 COMPR EHENS BETO MET. PANEL glucose 96 mg/dL 82-115 normal Not Available [facility] Department [address] [place], [address] 01/12/2024 17:54:05 01/12/20 24 01/12/2024 COMPR EHENS BETO MET. PANEL calcium 9.3 mg/dL 8.8-10 .2 normal Not Available [facility] Department [address] [place], [address] 01/12/2024 17:54:05 01/12/20 24 01/12/2024 COMPR EHENS BETO MET. PANEL bilirubin total 0.4 mg/dL 0.2-1. 2 normal Not Available [facility] Department [address] [place], [address] 01/12/2024 17:54:05 01/12/20 24 01/12/2024 COMPR EHENS BETO MET. PANEL aspartate amino transferase 21 U/L 5-40 normal Not Available [facility] Laboratory Department [address] [place], [address] 01/12/2024 17:54:05 01/12/20 24 01/12/2024 COMPR EHENS BETO MET. PANEL alanine aminotransfe rase 26 U/L 5-41 normal Not Available [facility] Laboratory Department [address] [place], [address] 01/12/2024 17:54:05 01/12/20 24 01/12/2024 COMPR EHENS BETO MET. PANEL total protein 6.6 g/dL 6.4-8. 3 normal Not Available [facility] Department [address] [place] [address], [address] 01/12/2024 17:54:05 01/12/20 24 01/12/2024 COMPR EHENS BETO MET. PANEL albumin level 4.4 g/dL 3.5-5. 2 normal Not Available [facility] Department [address] [place] [address], [address] 01/12/2024 17:54:05 01/12/20 24 01/12/2024 COMPR EHENS BETO MET. PANEL globulin 2.2 gm/dL 2.0-3. 5 normal Not Available [facility] Department [address] [place] [address], [id number] 01/12/2024 17:54:05 01/12/20 24 01/12/2024 COMPR EHENS BETO MET. PANEL albumin globulin ratio 2.0 % 1.1-2. 5 normal Not Available [facility] Department [address] [place] [address], [address] 01/12/2024 17:54:05 01/12/20 24 01/12/2024 COMPR EHENS BETO MET. PANEL alkaline phosphatase 59 U/L 40-129 normal Not Available [facility] Department [address] [place] [address], [address] 01/12/2024 17:54:05 01/12/20 24 01/12/2024 LIPID PANEL WITH REFLE X triglyceride s 84 mg/dL 30-150 normal Refer ence Range s: <150 mg/dl Beatriz l 150-1 99 mg/dl Borde rline High 200-4 99 mg/dl High >500 mg/dl Very High Not Available [facility] Department [address] [place], [address] 01/12/2024 17:54:07 01/12/20 24 01/12/2024 LIPID PANEL WITH REFLE X cholesterol 132 mg/dL 100-20 0 normal Not Available [facility] Department [address] [place], [address] 01/12/2024 17:54:07 01/12/20 24 01/12/2024 LIPID PANEL WITH REFLE X LDL cholesterol direct TNP mg/dL 0-100 Not Available [facility] Laboratory Department [address] [place], [address] 01/12/2024 17:54:07 01/12/20 24 01/12/2024 LIPID PANEL [...] mg/dL Very high >190 mg/dL Not Available [facility] Department [address] [place], [address] 01/12/2024 17:54:07 01/12/20 24 01/12/2024 LIPID PANEL WITH REFLE X HDL cholesterol 52.5 mg/dL 40-60 normal Major risk facto r for CHD: <40 mg/dL Negat beto risk facto r for CHD: >=60 mg/dL Not Available [facility] Department [address] [place], [address] 01/12/2024 17:54:07 01/12/20 24 01/12/2024 LIPID PANEL WITH REFLE X chol HDL ratio 2.51 Risk CHOL/ HDL CHOL/ HDL Ratio Male Femal e 1/2 AVERA GE 3.43 3.27 AVERA GE 4.97 4.44 2 X AVERA GE 9.55 7.05 3 X AVERA GE 23.39 11.04 Not Available [facility] Department [address] [place], [address] 01/12/2024 17:54:07 01/12/20 24 01/12/2024 HEPAT ITIS C ANTIB MANOJ hepatitis C virus antibody NONREA CTIVE nonrea ctive Nonre activ e/Ant ibodi es to HCV not detec jd; does not exclu de early acute HCV infec tion Not Available [facility] Department [address] [place] [address], [address] 01/12/2024 17:59:39 01/12/20 24 01/12/2024 COMPL ETE BLOOD COUNT AUTO DIFF white blood count 4.88 K/uL 3.5-11 .0 normal Not Available [facility] Department [address] [place] [address], [address] 01/12/2024 18:11:24 01/12/20 24 01/12/2024 COMPL ETE BLOOD COUNT AUTO DIFF red blood count 4.47 M/uL 3.90-5 .50 normal Not Available [facility] Department [address] [place] [address], [address] 01/12/2024 18:11:24 01/12/20 24 01/12/2024 COMPL ETE BLOOD COUNT AUTO DIFF hemoglobin 14.0 g/dL 14.0-1 8.0 normal Not Available [facility] Department [address] [place] [address], [address] 01/12/2024 18:11:24 01/12/20 24 01/12/2024 COMPL ETE BLOOD COUNT AUTO DIFF hematocrit 44.3 % 42.0-5 4.0 normal Not Available [facility] Department [address] [place] [address], [address] 01/12/2024 18:11:24 01/12/20 24 01/12/2024 COMPL ETE BLOOD COUNT AUTO DIFF mean corpuscular volume 99.1 fL 80.0-1 00.0 normal Not Available [facility] Department [address] [place] [address], [address] 01/12/2024 18:11:24 01/12/20 24 01/12/2024 COMPL ETE BLOOD COUNT AUTO DIFF mean corpuscular hemoglobin 31.3 pg 25.4-3 4.6 normal Not Available [facility] Department [address] [place] [address], [address] 01/12/2024 18:11:24 01/12/20 24 01/12/2024 COMPL ETE BLOOD COUNT AUTO DIFF mean corpuscular HGB conc 31.6 g/dL 31.0-3 7.0 normal Not Available [facility] Department [address] [place] [address], [address] 01/12/2024 18:11:24 01/12/20 24 01/12/2024 COMPL ETE BLOOD COUNT AUTO DIFF red cell distribution width 12.6 % 11.5-1 4.5 normal Not Available [facility] Department [address] [place] [address], [id number] 01/12/2024 18:11:24 01/12/20 24 01/12/2024 COMPL ETE BLOOD COUNT AUTO DIFF platelet count 166 K/uL 150-40 0 normal Not Available [facility] Department [address] [place] [address], [id number] 01/12/2024 18:11:24 01/12/20 24 01/12/2024 COMPL ETE BLOOD COUNT AUTO DIFF neutrophils percent auto 63.6 % 35.0-6 6.0 normal Not Available [facility] Department [address] [place] [address], [address] 01/12/2024 18:11:24 01/12/20 24 01/12/2024 COMPL ETE BLOOD COUNT AUTO DIFF imm gran pct auto 0.2 % 0.0-0. 6 normal Not Available [facility] Department [address] [place] [address], [id number] 01/12/2024 18:11:24 01/12/20 24 01/12/2024 COMPL ETE BLOOD COUNT AUTO DIFF lymphocytes percent auto 25.4 % 25.0-4 5.0 normal Not Available [facility] Department [address] [place] [address], [address] 01/12/2024 18:11:24 01/12/20 24 01/12/2024 COMPL ETE BLOOD COUNT AUTO DIFF monocytes percent auto 9.4 % 0.0-13 .0 normal Not Available [facility] Department [address] [place] [address], 16[address] 01/12/2024 18:11:24 01/12/20 24 01/12/2024 COMPL ETE BLOOD COUNT AUTO DIFF eosinophils percent auto 1.2 % 0.0-8. 0 normal Not Available [facility] Department [address] [place] [address], [address] 01/12/2024 18:11:24 01/12/20 24 01/12/2024 COMPL ETE BLOOD COUNT AUTO DIFF basophils percent auto 0.2 % 0.0-1. 0 normal Not Available [facility] Department [address] [place] [address], [address] 01/12/2024 18:11:24 01/12/20 24 01/12/2024 COMPL ETE BLOOD COUNT AUTO DIFF NRBC pct auto 0.0 /100_ WBC 0.0 normal Not Available [facility] Department [address] [place] [address], [id number] 01/12/2024 18:11:24 01/12/20 24 01/12/2024 COMPL ETE BLOOD COUNT AUTO DIFF neutrophils absolute auto 3.10 K/uL 1.5-7. 5 normal Not Available [facility] Department [address] [place] [address], 35[address] 01/12/2024 18:11:24 01/12/20 24 01/12/2024 COMPL ETE BLOOD COUNT AUTO DIFF imm gran abs auto 0.01 K/uL 0.00-0 .09 normal Not Available [facility] Department [address] [place] [address], [address] 01/12/2024 18:11:24 01/12/20 24 01/12/2024 COMPL ETE BLOOD COUNT AUTO DIFF lymphocytes absolute auto 1.24 K/uL 0.8-4. 8 normal Not Available [facility] Department [address] [place] [address], 60[address] 01/12/2024 18:11:24 01/12/20 24 01/12/2024 COMPL ETE BLOOD COUNT AUTO DIFF monocytes absolute auto 0.46 K/uL 0.4-1. 3 normal Not Available [facility] Department [address] [place] [address], [id number] 01/12/2024 18:11:24 01/12/20 24 01/12/2024 COMPL ETE BLOOD COUNT AUTO DIFF eosinophils absolute auto 0.06 K/uL 0.0-0. 8 normal Not Available [facility] Department [address] [place] [address], [address] 01/12/2024 18:11:24 01/12/20 24 01/12/2024 COMPL ETE BLOOD COUNT AUTO DIFF basophils absolute auto 0.01 K/uL 0.0-0. 6 normal Not Available [facility] Department [address] [place] [address], 350[address] 01/12/2024 18:11:24 01/12/20 24 01/12/2024 COMPL ETE BLOOD COUNT AUTO DIFF NRBC abs auto 0.00 K/uL 0.00 normal Not Available [facility] Laboratory Department [address] [place] [address], 98[address] 01/12/2024 18:11:24 07/13/19 25 07/12/2024 PROST ATE SPECI FIC ANTIG EN prostate specific antigen 0.37 NG/mL 0.0-4. 0 normal Alan Diagn ostic s Elect alan milum inesc ence Immun oassa y (ECLI A) Value s obtai zana with diffe rent assay metho ds or kits canno t be used inter espino eably . Resul ts canno t be inter prete d as absol aleida evide nce of the prese nce or absen ce of krish yeh se. Not Available [facility] Department [address] [place] [address], [address] 07/12/2024 14:28:46 07/13/19 25 07/12/2024 COMPR EHENS BETO MET. PANEL sodium 142 mmol/ L 136-14 5 normal Not Available [facility] Department [address] [place] [address], [address] 07/12/2024 14:30:47 07/13/19 25 07/12/2024 COMPR EHENS BETO MET. PANEL potassium 4.4 mmol/ L 3.5-5. 1 normal Not Available [facility] Department [address] [place] [address], [id number] 07/12/2024 14:30:47 07/13/19 25 07/12/2024 COMPR EHENS BETO MET. PANEL chloride 107 mmol/ L 98-107 normal Not Available [facility] Department [address] [place] [address], [address] 07/12/2024 14:30:47 07/13/19 25 07/12/2024 COMPR EHENS BETO MET. PANEL carbon dioxide 23 mmol/ L 22-29 normal Not Available [facility] Department [address] [place] [address], [address] 07/12/2024 14:30:47 07/13/19 25 07/12/2024 COMPR EHENS BETO MET. PANEL anion gap 16 mmol/ L 10-20 normal Not Available [facility] Department [address] [place], [address] 07/12/2024 14:30:47 07/13/1907/12/2024 COMPR EHENS BETO MET. PANEL blood urea nitrogen 17 mg/dL 8-23 normal Not Available [facility] Laboratory Department [address] [place], [address] 07/12/2024 14:30:47 07/13/1907/12/2024 COMPR EHENS BETO MET. PANEL creatinine 0.91 mg/dL 0.67-1 .17 normal Not Available [facility] Department [address] [place], [address] 07/12/2024 14:30:47 07/13/1907/12/2024 COMPR EHENS BETO MET. PANEL estimated glomerular filt rate 84 GFR Value : mL/mi n/1.7 3 squar [...] 30 mg/g or other marke rs of kidne y damag e Kidne y failu re is less than 15 mL/mi n/1.7 3 squar e meter s This test is not perfo rmed in patie nts under the age of 18. Not Available [facility] Department [address] [place], [address] 07/12/2024 14:30:47 07/13/1907/12/2024 COMPR EHENS BETO MET. PANEL glucose 89 mg/dL 82-115 normal Not Available [facility] Department [address] [place], [address] 07/12/2024 14:30:47 07/13/19 25 07/12/2024 COMPR EHENS BETO MET. PANEL calcium 9.6 mg/dL 8.8-10 .2 normal Not Available [facility] Department [address] [place], [address] 07/12/2024 14:30:47 07/13/19 25 07/12/2024 COMPR EHENS BETO MET. PANEL bilirubin total 0.3 mg/dL 0.2-1. 2 normal Not Available [facility] Department [address] [place] [address], [address] 07/12/2024 14:30:47 07/13/19 25 07/12/2024 COMPR EHENS BETO MET. PANEL aspartate amino transferase 24 U/L 5-40 normal Not Available [facility] Laboratory Department [address] [place], [address] 07/12/2024 14:30:47 07/13/19 25 07/12/2024 COMPR EHENS BETO MET. PANEL alanine aminotransfe rase 28 U/L 5-41 normal Not Available [facility] Laboratory Department [address] [place] [address], 14[address] 07/12/2024 14:30:47 07/13/19 25 07/12/2024 COMPR EHENS BETO MET. PANEL total protein 6.7 g/dL 6.4-8. 3 normal Not Available [facility] Department [address] [place] [address], [address] 07/12/2024 14:30:47 07/13/19 25 07/12/2024 COMPR EHENS BETO MET. PANEL albumin level 4.4 g/dL 3.5-5. 2 normal Not Available [facility] Department [address] [place] [address], [address] 07/12/2024 14:30:47 07/13/19 25 07/12/2024 COMPR EHENS BETO MET. PANEL globulin 2.3 gm/dL 2.0-3. 5 normal Not Available [facility] Department [address] [place] [address], [address] 07/12/2024 14:30:47 07/13/19 25 07/12/2024 COMPR EHENS BETO MET. PANEL albumin globulin ratio 2.0 % 1.1-2. 5 normal Not Available [facility] Department [address] [place], [address] 07/12/2024 14:30:47 07/13/19 25 07/12/2024 COMPR EHENS BETO MET. PANEL alkaline phosphatase 69 U/L 40-129 normal Not Available [facility] Department [address] [place], [address] 07/12/2024 14:30:47 09/28/1909/27/2024 URINE CULTU RE ROUTI NE results ----- ----- ----- ----- ----- ----- ----- ----- ----- ----- ----- ----- ----- ----- ----- ----- ----- ----- -- RUN DATE: 09/28 [facility] *Live * - LAB PAGE 1 RUN TIME: 2012 Arielle beckwith Inqui ry ----- ----- ----- ----- ----- ----- ----- ----- ----- ----- ----- ----- ----- ----- ----- ----- ----- ----- -- PATIE NT: Fr eloina Dawkins ACCT: [id number] LOC: HE.DO Ramirez U: [id number] AGE/S X: 83/M ROOM: RE09/[address]: Bozena Barney NP : 11/09 BED: DIS: STATU S: REG CLI TLOC: ----- ----- ----- ----- ----- ----- ----- ----- ----- ----- ----- ----- ----- ----- ----- ----- ----- ----- -- SPEC #: [id number] LANEY: 09/27-U THAI STATU S: COMP REQ #: [id number] RECD: 09/27-[address]: Bozena Barney NP [facility] E: Tae hurst ENTR: 09/27-1 244 [facility] DR: ROMELIA C: ORDER ED: Urine Cult Rout ----- ----- ----- ----- ----- ----- ----- ----- ----- ----- ----- ----- ----- ----- ----- ----- ----- ----- -- Proce dure Resul t ----- ----- ----- ----- ----- ----- ----- ----- ----- ----- ----- ----- ----- ----- ----- ----- ----- ----- -- Urine Cultu re Tylor ne Final i??: i?? No maria m Frey [facility] at: 01 - [facility] [address] [facility] [address], [address], [facility] [address] Lab Direc tor: Paras Lim MD, Phone : [phone] ----- ----- ----- ----- ----- ----- ----- ----- ----- ----- ----- ----- ----- ----- ----- ----- ----- ----- -- END OF REPOR T Not Available [facility] Department [address] [place], [address] 09/28/2024 20:14:22 09/28/1909/27/2024 urina lysis , dipst ick Leukocytes Small Not Available In-Offi ce Order Internal Use Only DO Not Attach Compendium DO Not Attach Compendium, Do Not Delete/merge, [id number] 09/27/2024 10:09:45 09/28/1909/27/2024 urina lysis , dipst ick Nitrite negati ve Not Available In-Office Order Internal Use Only DO Not Attach Compendium DO Not Attach Compendium, Do Not Delete/merge, 09/27/2024 10:09:45 09/28/19 25 09/27/2024 urina lysis , dipst ick Urobilinogen normal Not Available In-Of fice Order Internal Use Only DO Not Attach Compendium DO Not Attach Compendium, Do Not Delete/merge, 09/27/2024 10:09:45 09/28/19 25 09/27/2024 urina lysis , dipst ick pH 6.0 Not Available In-Office Order Internal Use Only DO Not Attach Compendium DO Not Attach Compendium, Do Not Delete/merge, 09/27/2024 10:09:45 09/28/19 25 09/27/2024 urina lysis , dipst ick Protein Trace Not Available In-Office Order Internal Use Only DO Not Attach Compendium DO Not Attach Compendium, Do Not Delete/merge, 09/27/2024 10:09:45 09/28/19 25 09/27/2024 urina lysis , dipst ick Blood Modera te Not Available In-Office Order Internal Use Only DO Not Attach Compendium DO Not Attach Compendium, Do Not Delete/merge, 09/27/2024 10:09:45 09/28/19 25 09/27/2024 urina lysis , dipst ick Specific [place] 1.020 Not Available In-Off ice Order Internal Use Only DO Not Attach Compendium DO Not Attach Compendium, Do Not Delete/merge, 09/27/2024 10:09:45 09/28/19 25 09/27/2024 urina lysis , dipst ick Ketone Small Not Available In-Office Order Internal Use Only DO Not Attach Compendium DO Not Attach Compendium, Do Not Delete/merge, 09/27/2024 10:09:45 09/28/19 25 09/27/2024 urina lysis , dipst ick Bilirubin Negati ve Not Available In-Office Order Internal Use Only DO Not Attach Compendium DO Not Attach Compendium, Do Not Delete/merge, 09/27/2024 10:09:45 09/28/1909/27/2024 urina lysis , dipst ick Glucose Negati ve Not Available In-Office Order Internal Use Only DO Not Attach Compendium DO Not Attach Compendium, Do Not Delete/merge, [id number] 09/27/2024 10:09:45 10/02/19 25 10/01/2024 UA + MICRO (DO NOT ORDER ) color urine Yellow yellow Not Available [facility] Laboratory Department [address] [place] [address], [id number] 10/01/2024 10:09:12 10/02/1910/01/2024 UA + MICRO (DO NOT ORDER ) appearance urine Clear clear Not Available [facility] Laboratory Department [address] [place] [address], [id number] 10/01/2024 10:09:12 10/02/1910/01/2024 UA + MICRO (DO NOT ORDER ) specific gravity urine 1.010 1.001- 1.035 Not Available [facility] Department [address] [place] [address], 50459 10/01/2024 10:09:12 10/02/1910/01/2024 UA + MICRO (DO NOT ORDER ) glucose urine UA Negati ve negati ve Not Available [facility] Department [address] [place] [address], [address]15 10/01/2024 10:09:12 10/02/1910/01/2024 UA + MICRO (DO NOT ORDER ) bilirubin urine Negati ve negati ve Not Available [facility] [facility] [address] [place] [address], [id number] 10/01/2024 10:09:12 10/02/19 25 10/01/2024 UA + MICRO (DO NOT ORDER ) ketones urine Negati ve negati ve Not Available [facility] [address] [place] [address], [id number] 10/01/2024 10:09:12 10/02/1910/01/2024 UA + MICRO (DO NOT ORDER ) urine hemoglobin 2+ negati ve abnormal Not Available [facility] [address] [place] [address], [id number] 10/01/2024 10:09:12 10/02/19 25 10/01/2024 UA + MICRO (DO NOT ORDER ) pH urine 6.0 5.0-8. 0 Not Available [facility] [address] [place] [address], 46018 10/01/2024 10:09:12 10/02/1910/01/2024 UA + MICRO (DO NOT ORDER ) protein urine Negati ve mg/dL negati ve Not Available [facility] [address] [place] [address], [id number] 10/01/2024 10:09:12 10/02/1910/01/2024 UA + MICRO (DO NOT ORDER ) urobilinogen urine 0.2 mg/dL 0.2-1. 0 Not Available [facility] [address] [place] [address], 51292 10/01/2024 10:09:12 10/02/1910/01/2024 UA + MICRO (DO NOT ORDER ) nitrite urine Negati ve negati ve Not Available [facility] [address] [place] [address], [id number] 10/01/2024 10:09:12 10/02/1910/01/2024 UA + MICRO (DO NOT ORDER ) leukocyte esterase urine Negati ve negati ve Not Available [facility] [address] [place] [address], [id number] 10/01/2024 10:09:12 10/02/1910/01/2024 UA + MICRO (DO NOT ORDER ) RBC urine 5-10 0-3/hp f abnormal Not Available [facility] [address] [place] [address], [id number] 10/01/2024 10:09:12 10/02/1910/01/2024 COMPL ETE BLOOD COUNT AUTO DIFF white blood count 4.54 K/uL 3.5-11 .0 normal Not Available [facility] [address] [place] [address], 30687 10/01/2024 10:04:07 10/02/1910/01/2024 COMPL ETE BLOOD COUNT AUTO DIFF red blood count 4.81 M/uL 3.90-5 .50 normal Not Available [facility] [address] [place] [address], [id number] 10/01/2024 10:04:07 10/02/1910/01/2024 COMPL ETE BLOOD COUNT AUTO DIFF hemoglobin 15.1 g/dL 14.0-1 8.0 normal Not Available [facility] [address] [place] [address], 27060 10/01/2024 10:04:07 10/02/1910/01/2024 COMPL ETE BLOOD COUNT AUTO DIFF hematocrit 46.7 % 42.0-5 4.0 normal Not Available [facility] [address] [place] [address], [id number] 10/01/2024 10:04:07 10/02/19 25 10/01/2024 COMPL ETE BLOOD COUNT AUTO DIFF mean corpuscular volume 97.1 fL 80.0-1 00.0 normal Not Available [facility] [address] [place] [address], [id number] 10/01/2024 10:04:07 10/02/19 25 10/01/2024 COMPL ETE BLOOD COUNT AUTO DIFF mean corpuscular hemoglobin 31.4 pg 25.4-3 4.6 normal Not Available [facility] [address] [place] [address], [id number] 10/01/2024 10:04:07 10/02/19 25 10/01/2024 COMPL ETE BLOOD COUNT AUTO DIFF mean corpuscular HGB conc 32.3 g/dL 31.0-3 7.0 normal Not Available [facility] [address] [place] [address], [id number] 10/01/2024 10:04:07 10/02/19 25 10/01/2024 COMPL ETE BLOOD COUNT AUTO DIFF red cell distribution width 13.2 % 11.5-1 4.5 normal Not Available [facility] [address] [place] [address], [id number] 10/01/2024 10:04:07 10/02/19 25 10/01/2024 COMPL ETE BLOOD COUNT AUTO DIFF platelet count 167 K/uL 150-40 0 normal Not Available [facility] [address] [place] [address], 72642 10/01/2024 10:04:07 10/02/1910/01/2024 COMPL ETE BLOOD COUNT AUTO DIFF neutrophils percent auto 64.1 % 35.0-6 6.0 normal Not Available [facility] [address] [place] [address], [id number] 10/01/2024 10:04:07 10/02/19 25 10/01/2024 COMPL ETE BLOOD COUNT AUTO DIFF imm gran pct auto 0.2 % 0.0-0. 6 normal Not Available [facility] [address] [place] [address], [id number] 10/01/2024 10:04:07 10/02/19 25 10/01/2024 COMPL ETE BLOOD COUNT AUTO DIFF lymphocytes percent auto 25.6 % 25.0-4 5.0 normal Not Available [facility] [address] [place] [address], [id number] 10/01/2024 10:04:07 10/02/19 25 10/01/2024 COMPL ETE BLOOD COUNT AUTO DIFF monocytes percent auto 8.4 % 0.0-13 .0 normal Not Available [facility] [address] [place] [address], [id number] 10/01/2024 10:04:07 10/02/19 25 10/01/2024 COMPL ETE BLOOD COUNT AUTO DIFF eosinophils percent auto 1.3 % 0.0-8. 0 normal Not Available [facility] [address] [place] [address], 26433 10/01/2024 10:04:07 10/02/19 25 10/01/2024 COMPL ETE BLOOD COUNT AUTO DIFF basophils percent auto 0.4 % 0.0-1. 0 normal Not Available [facility] [address] [place] [address], [id number] 10/01/2024 10:04:07 10/02/19 25 10/01/2024 COMPL ETE BLOOD COUNT AUTO DIFF NRBC pct auto 0.0 /100_ WBC 0.0 normal Not Available [facility] [address] [place] [address], [id number] 10/01/2024 10:04:07 10/02/19 25 10/01/2024 COMPL ETE BLOOD COUNT AUTO DIFF neutrophils absolute auto 2.91 K/uL 1.5-7. 5 normal Not Available [facility] [address] [place] [address], [id number] 10/01/2024 10:04:07 10/02/19 25 10/01/2024 COMPL ETE BLOOD COUNT AUTO DIFF imm gran abs auto 0.01 K/uL 0.00-0 .09 normal Not Available [facility] [address] [place], [address] 10/01/2024 10:04:07 10/02/19 25 10/01/2024 COMPL ETE BLOOD COUNT AUTO DIFF lymphocytes absolute auto 1.16 K/uL 0.8-4. 8 normal Not Available [facility] [address] [place], [address] 10/01/2024 10:04:07 10/02/19 25 10/01/2024 COMPL ETE BLOOD COUNT AUTO DIFF monocytes absolute auto 0.38 K/uL 0.4-1. 3 low Not Available [facility] [address] [place] [address], [id number] 10/01/2024 10:04:07 10/02/19 25 10/01/2024 COMPL ETE BLOOD COUNT AUTO DIFF eosinophils absolute auto 0.06 K/uL 0.0-0. 8 normal Not Available [facility] [address] [place] [address], [id number] 10/01/2024 10:04:07 10/02/19 25 10/01/2024 COMPL ETE BLOOD COUNT AUTO DIFF basophils absolute auto 0.02 K/uL 0.0-0. 6 normal Not Available [facility] [address] [place], [address] 10/01/2024 10:04:07 10/02/19 25 10/01/2024 COMPL ETE BLOOD COUNT AUTO DIFF NRBC abs auto 0.00 K/uL 0.00 normal Not Available [facility] Department [address] [place], [address] 10/01/2024 10:04:07 10/02/19 25 10/01/2024 COMPR EHENS BETO MET. PANEL sodium 140 mmol/ L 136-14 5 normal Not Available [facility] [address] [place] [address], 58668 10/01/2024 10:26:59 10/02/19 25 10/01/2024 COMPR EHENS BETO MET. PANEL potassium 5.0 mmol/ L 3.5-5. 1 normal Not Available [facility] [address] [place] [address], 99883 10/01/2024 10:26:59 10/02/19 25 10/01/2024 COMPR EHENS BETO MET. PANEL chloride 106 mmol/ L 98-107 normal Not Available [facility] [address] [place], [address] 10/01/2024 10:26:59 10/02/19 25 10/01/2024 COMPR EHENS BETO MET. PANEL carbon dioxide 24 mmol/ L 22-29 normal Not Available [facility] [address] [place], [address] 10/01/2024 10:26:59 10/02/19 25 10/01/2024 COMPR EHENS BETO MET. PANEL anion gap 16 mmol/ L 10-20 normal Not Available [facility] [address] [place], [address] 10/01/2024 10:26:59 10/02/19 25 10/01/2024 COMPR EHENS BETO MET. PANEL blood urea nitrogen 17 mg/dL 8-23 normal Not Available [facility] Department [address] [place], [address] 10/01/2024 10:26:59 10/02/19 25 10/01/2024 COMPR EHENS BETO MET. PANEL creatinine 0.89 mg/dL 0.67-1 .17 normal Not Available [facility] [address] [place] [address], 28203 10/01/2024 10:26:59 10/02/19 25 10/01/2024 COMPR EHENS BETO MET. PANEL estimated glomerular filt rate 85 GFR Value : mL/mi n/1.7 3 squar [...] 30 mg/g or other marke rs of kidne y damag e Kidne y failu re is less than 15 mL/mi n/1.7 3 squar e meter s This test is not perfo rmed in patie nts under the age of 18. Not Available [facility] [address] [place], [address] 10/01/2024 10:26:59 10/02/19 25 10/01/2024 COMPR EHENS BETO MET. PANEL glucose 105 mg/dL 82-115 normal Not Available [facility] [address] [place] [address], 04020 10/01/2024 10:26:59 10/02/19 25 10/01/2024 COMPR EHENS BETO MET. PANEL calcium 9.8 mg/dL 8.8-10 .2 normal Not Available [facility] [address] [place] [address], 10864 10/01/2024 10:26:59 10/02/19 25 10/01/2024 COMPR EHENS BETO MET. PANEL bilirubin total 0.4 mg/dL 0.2-1. 2 normal Not Available [facility] [address] [place] [address], 88633 10/01/2024 10:26:59 10/02/19 25 10/01/2024 COMPR EHENS BETO MET. PANEL aspartate amino transferase 23 U/L 5-40 normal Not Available [facility] Department [address] [place] [address], 93862 10/01/2024 10:26:59 10/02/19 25 10/01/2024 COMPR EHENS BETO MET. PANEL alanine aminotransfe rase 24 U/L 5-41 normal Not Available [facility] Department [address] [place] [address], 66398 10/01/2024 10:26:59 10/02/19 25 10/01/2024 COMPR EHENS BETO MET. PANEL total protein 7.4 g/dL 6.4-8. 3 normal Not Available [facility] [address] [place] [address], 85546 10/01/2024 10:26:59 10/02/19 25 10/01/2024 COMPR EHENS BETO MET. PANEL albumin level 4.6 g/dL 3.5-5. 2 normal Not Available [facility] [address] [place] [address], 56499 10/01/2024 10:26:59 10/02/19 25 10/01/2024 COMPR EHENS BETO MET. PANEL globulin 2.8 gm/dL 2.0-3. 5 normal Not Available [facility] [address] [place], [address] 10/01/2024 10:26:59 10/02/19 25 10/01/2024 COMPR KAVITA PÉREZ MET. PANEL albumin globulin ratio 1.7 % 1.1-2. 5 normal Not Available [facility] [address] [place], [address] 10/01/2024 10:26:59 10/02/19 25 10/01/2024 COMPR KAVITA PÉREZ MET. PANEL alkaline phosphatase 64 U/L 40-129 normal Not Available [facility] [address] [place], [address] 10/01/2024 10:26:59 10/14/19 25 10/13/2024 urina lysis , dipst ick Specific [place] 1.015 Not Available [address], [address], 10/13/2024 08:56:58 10/14/19 25 10/13/2024 urina lysis , dipst ick PH 6.5 Not Available [address], [address], 10/13/2024 08:56:58 10/14/1910/13/2024 urina lysis , dipst ick Leukocytes Negati ve Not Available [address], [address], 10/13/2024 08:56:58 10/14/1910/13/2024 urina lysis , dipst ick Nitrite negati ve Not Available [address], [address], 10/13/2024 08:56:58 10/14/1910/13/2024 urina lysis , dipst ick Protein Negati ve Not Available [address], [address], 10/13/2024 08:56:58 10/14/19 25 10/13/2024 urina lysis , dipst ick Glucose Normal Not Available [facility] [address] [facility] [address], [place], [address], 10/13/2024 08:56:58 10/14/1910/13/2024 urina lysis , dipst ick Ketone Normal Not Available [facility] [address] [facility] [address], [place], [address], 10/13/2024 08:56:58 10/14/1910/13/2024 urina lysis , dipst ick Urobilinogen Normal Not Available [facility] [address] [facility] [address], [place], [address], 10/13/2024 08:56:58 10/14/1910/13/2024 urina lysis , dipst ick Bilirubin Negati ve Not Available [facility] [address] [facility] [address], [place], [address], 10/13/2024 08:56:58 10/14/1910/13/2024 urina lysis , dipst ick Blood Negati ve Not Available [facility] [address] [facility] [address], [place], [address], 10/13/2024 08:56:58 11/16/1911/15/2024 URINE CULTU RE ROUTI NE results ----- ----- ----- ----- ----- ----- ----- ----- ----- ----- ----- ----- ----- ----- ----- ----- ----- ----- -- RUN DATE: 11/16 mitzi levy *Live * - LAB PAGE 1 RUN TIME: 2208 Speci tang Inqui ry ----- ----- ----- ----- ----- ----- ----- ----- ----- ----- ----- ----- ----- ----- ----- ----- ----- ----- -- PATIE NT: Ianban robertaFr eloina Marcus ACCT: [id number] LOC: CAM.OR U: [id number] AGE/S X: 84/M ROOM: RE11/[address]: Tc cordero MD : 11/09 BED: DIS: STATU S: DEP [facility] TLOC: ----- ----- ----- ----- ----- ----- ----- ----- ----- ----- ----- ----- ----- ----- ----- ----- ----- ----- -- SPEC #: [id number] 60R LANEY: 11/15 214 STATU S: COMP REQ #: [id number] RECD: 11/[address]: Tc cordero MD SOUR E: Urine CC ENTR: 11/[address]: Jeanne AGUDELO C: ORDER ED: Urine Cult Rout ----- ----- ----- ----- ----- ----- ----- ----- ----- ----- ----- ----- ----- ----- ----- ----- ----- ----- -- Proce dure Resul t ----- ----- ----- ----- ----- ----- ----- ----- ----- ----- ----- ----- ----- ----- ----- ----- ----- ----- -- Urine Cultu re Routi ne Final i??: i?? No growt h Perfo rmed at: 01 - [facility] [place] [address], [address], [place] [address] Lab Direc tor: Paras Lim MD, Phone : [phone] ----- ----- ----- ----- ----- ----- ----- ----- ----- ----- ----- ----- ----- ----- ----- ----- ----- ----- -- END OF REPOR T Not Available [facility] [address] [place], [address] 11/16/2024 22:09:50 10/02/19 25 10/01/2024 [facility] [address] [facility] [place] [address] Ultras ound Report Signed Patien t: Hakan Billings MR#: [id number] : 1940 Acct:H [id number] Age/Se x: 83 / M ADM Date: Loc: HE.ER Attend ing Dr: Sanaz borden Physic natividad: Sudhir HOUSTON Date of Servic e: Proced ure(s) : US scrotu m Access ion Number (s): [id number] H cc: Tri Singh DO PROCED URE INFORM ATION: Exam: US Scrotu m Exam date and time: 025 12:33 PM Age: 83 years old Clinic al indica tion: Flank pain and groin pain and scrotu m pain; Additi onal info: Testic ular pain x 1 weeks, worsen ing TECHNI QUE: Imagin g protoc ol: Real-t jaky ultras ound of the scrotu m and conten ts with color Dopple r and image docume ntatio n. COMPAR KALYANI: No releva nt prior studie s availa ble. FINDIN GS: Right testic le: Severa l puncta te calcif icatio ns are noted. No mass. Normal color Dopple r and arteri al wavefo anne marie. No torsio n. 4.1 x 2.7 x 1.6 cm. Left testic le: Severa l puncta te calcif icatio ns are noted. No mass. Normal color Dopple r and arteri al wavefo anne marie. No torsio n. 3 x 2.7 x 1.2 cm. Epidid ymides : Normal . Scrotu m/soft tissue s: Normal . No hydroc eles. IMPRES ANDRIA: Unrema rkable scrota l ultras ound. Electr onical ly Signed By: Dragan Donnelly MD On 2024 13:05: 20 Electr onical ly Signed By: Dragan Donnelly MD On: 1305 Dictat ed By: Dragan Donnelly MD 1233 Signed By: Dragan Donnelly MD 1305 [email or web address] [facility] [address] [place] [address], [address], 10/05/2024 14:32:05 10/02/1910/01/2024 CT, abdom en + pelvi s, w/o contr ast [facility] [address] [facility] [place] [address] [place] Scan Report Signed Patien t: Hakan Billings MR#: [id number] : 1940 Acct:H [id number] Age/Se x: 83 / M ADM Date: Loc: HE.ER Attend ing Dr: Sanaz borden Physic natividad: Sudhir HOUSTON Date of Servic e: Proced ure(s) : CT abdome n pelvis wo IV con Access ion Number (s): [id number] H cc: Tri T Divito DO Proced ure: CT abdome n pelvis wo IV con 025 1:35 PM Indica tions: Testic ular/i nguina l pain, Hematu luli Compar kalyani: None TECHNI QUE: Helica l, multid etecto r row CT was perfor med throug h the abdome n and pelvis withou t intrav enous contra st materi al. Target ed CT protoc ols using provid ed histor y and dose modula tion techni ques based on this patien t's anatom y were employ ed to minimi ze radiat ion exposu re. Image post- proces sing was perfor med in the axial, sagitt al, and wall l planes . The lack of intrav enous contra st limits the evalua tion of the solid organs and vessel s. FINDIN GS: ABDOME N Heart: The visual ized portio ns are unrema rkable . Lung bases: Unrema rkable . Hepato biliar y: There are at least 4 hypode nsitie s in the liver larges t of which measur es 2.2 cm, likely cysts. No biliar y ductal dilata tion. Gallbl adder: No radiop aque gallst ones. Pancre as: Unrema rkable for techni que. Spleen : Unrema rkable withou t intrav enous contra st. Adrena ls: There is slight thicke pravin of the left adrena l gland. The right adrena l gland is unrema rkable . Kidney s/Uret ers: There is a 4.2 cm exophy tic hypode nsity in the upper pole of the right kidney likely a cyst. There is no hydron ephros is or obstru cting renal calcul us. Evalua tion is limite d due to lack of intrav enous contra st. Gastro intest inal tract: The append ix is normal . There is a modera te amount of fecal materi al in the large bowel. There is no bowel obstru ction. There are scatte red coloni c divert iculi withou t CT eviden ce of acute divert iculit is. Lymph nodes: No pathol ogic lympha denopa thy. Retrop eriton eum: No free air or free fluid. Vascul ar: There is mild athero sclero sis. There is no abdomi nal aortic aneury sm. PELVIS : Pelvic organs : No pelvic masses or inflam matory proces s is identi fied. Bones: No acute abnorm ality. There is grade 1 anteri or listhe sis of L5 on S1. 024 CT/CT abdome n pelvis wo IV con IMPRES ANDRIA: No CT eviden ce of an acute intra- abdomi nal proces s on this limite d noncon trast study. There is a 4.2 cm exophy tic hypode nsity in the upper pole of the right kidney likely a cyst. There is no hydron ephros is or obstru cting renal calcul us. If hematu luli persis ts, consid er outpat ient multip hase CT urogra m to furthe r evalua te. Electr onical ly Signed By: Marybeth sanabria MD On: 1405 Dictat ed By: Marybeth sanabria MD 1335 Signed By: Marybeth sanabria MD 1405 [email or web address] [facility] [address] [place] [address], [address], 10/05/2024 14:32:05 10/04/19 25 10/01/2024 US, duple x, scrot um, compl ete [facility] [address] [place] [address]. [place] [address] Ultras ound Report Signed Lam t: Hakan Billings MR#: [id number] : 1940 Acct:H [id number] Age/Se x: 83 / M ADM Date: Loc: HE.ER Attend ing Dr: Sanaz borden Physic natividad: Олег Ang MD Date of Servic e: Proced ure(s) : US scrotu m radha r Access ion Number (s): [id number] H cc: Tri Singh DO Proced ure: US scrotu m 025 12:30 PM Indica tions: Testic ular pain x 1 weeks, worsen ing Compar kalyani: None TECHNI QUE: Meneses scale, color and spectr al Dopple r imagin g of the scrotu m was perfor med. FINDIN GS: The right testis measur es 4.0 x 1.6 x 2.6 cm. The left testis measur es 2.9 x 1.2 x 2.7 cm. The testic ular echote xture is homoge neous and symmet tyesha bilate rally. There are a few bilate ral microc alcifi cation s. There is normal and symmet tyesha color Dopple r flow and normal arteri al and venous spectr al Dopple r wavefo anne marie within the testes bilate rally. The epidid ymides show homoge neous and symmet tyesha echote xture and vascul arity bilate rally. The right epidid ymal head is unrema rkable . The left epidid ymal head is unrema rkable . There is no eviden ce of varico vicki. There is no hydroc calvin. No sonogr aphic eviden ce of inguin al hernia this patien t status post bilate ral inguin al hernia repair . 008 US/US scrotu m dopple r IMPRES ANDRIA: No sonogr aphic eviden ce of testic ular torsio n or testic ular mass. No sonogr aphic eviden ce of bilate ral inguin al hernia in this patien t status post bilate ral inguin al hernia repair . Electr onical ly Signed By: Marybeth sanabria MD On: 0806 Dictat ed By: Marybeth sanabria MD 1230 Signed By: Marybeth sanabria MD 0806 [email or web address] [facility] [address] [place] [address], [place], [address], 10/03/2024 08:35:41 10/04/1910/01/2024 US, extre mitalfa lemus scula r, limit ed [facility] [address] [facility]. [place] [address] Ultras ound Report Signed Patien t: Hakan Billings MR#: [id number] : 1940 Acct:H [id number] Age/Se x: 83 / M ADM Date: Loc: HE.ER Attend ing Dr: Sanaz borden Physic natividad: Sudhir HOUSTON Date of Servic e: Proced ure(s) : US extrem ity nonvas cular mantilla Access ion Number (s): [id number] H cc: Tri Sparrow Divito DO Proced ure: US scrotu m 025 12:30 PM Indica tions: Testic ular pain x 1 weeks, worsen ing Compar kalyani: None TECHNI QUE: Meneses scale, color and spectr al Dopple r imagin g of the scrotu m was perfor med. FINDIN GS: The right testis measur es 4.0 x 1.6 x 2.6 cm. The left testis measur es 2.9 x 1.2 x 2.7 cm. The testic ular echote xture is homoge neous and symmet tyesha bilate rally. There are a few bilate ral microc alcifi cation s. There is normal and symmet tyesha color Dopple r flow and normal arteri al and venous spectr al Dopple r wavefo anne marie within the testes bilate rally. The epidid ymides show homoge neous and symmet tyesha echote xture and vascul arity bilate rally. The right epidid ymal head is unrema rkable . The left epidid ymal head is unrema rkable . There is no eviden ce of varico vicki. There is no hydroc calvin. No sonogr aphic eviden ce of inguin al hernia this patien t status post bilate ral inguin al hernia repair . 007 US/US extrem ity nonvas cular mantilla IMPRES ANDRIA: No sonogr aphic eviden ce of testic ular torsio n or testic ular mass. No sonogr aphic eviden ce of bilate ral inguin al hernia in this patien t status post bilate ral inguin al hernia repair . Electr onical ly Signed By: Marybeth sanabria MD On: 0806 Dictat ed By: Marybeth sanabria MD 1230 Signed By: Marybeth sanabrai MD 0806 [email or web address] [facility] [address] [place], [place] [address], [place], [address], 10/03/2024 08:35:41 10/18/19 25 10/16/2024 MRI, lumba r spine , w/o contr ast [facility] [address] [place] [address]. [place] [address] Magnet ic Resona nce Report Signed Patien t: Hakan Billings MR#: [id number] : 1940 Acct:H [id number] Age/Se x: 83 / M ADM Date: Loc: HE.MRI Attend ing Dr: Tri Singh DO Ordersarika boredn Physic natividad: Tri Singh DO Date of Servic e: Proced ure(s) : MR lumbar spine wo con Access ion Number (s): [id number] H cc: Tri Singh DO STUDY: MR lumbar spine wo con 10/17/19 25 4:50 PM HISTOR Y: Radicu lopath y. COMPAR KALYANI: 024 TECHNI QUE: Multis equenc e multip lanar MRI of the lumbar spine withou t intrav enous contra st. RISHI GS: Bone: There is transi tional lumbos acral anatom y. For the purpos es of this report , the transi tional verteb ra is referr ed to as a partia lly lumbar ized S1 with a rudime ntary S1-S2 disc. There is preser vation the normal lumbar lordos is. There is 3 mm ivett listhe sis of L5 on S1. There is trace retrol isthes is of L2 on L3. Verteb ral body height s appear mainta ined. There is a probab le micha ioma or focal fat in L3. No suspic ious focal marrow replac ing lesion . Discs and endpla quinn: There is diffus e loss of disc height and disc desicc ation throug hout the lumbar spine. There are associ ated degene rative endpla te change s includ ing a compon ent of Modic type I endpla te change at L5-S1. T12-L1 : There is no disc hernia tion or signif icant spinal canal stenos is or neural forami nal stenos is. L1-2: There is no disc hernia tion or signif icant spinal canal stenos is or neural forami nal stenos is. L2-3: Left subart icular inferi or disc extrus ion which likely contac ts the descen ding left L3 nerve roots. Bilate ral facet arthro deena. Overal l findin gs contri bute to trace right and mild left neural forami nal stenos is withou t signif icant spinal canal stenos is. The disc extrus ion appear s new compar ed to the prior study. L3-4: Slight welding pantograph operator ior disc bulge and bilate ral facet arthro deena. No signif icant spinal canal or neural forami nal narrow ing. L4-5: Tack Cutter ior disc bulge and bilate ral facet arthro deena. Findin gs contri bute to modera te bilate ral neural forami nal stenos is and mild spinal canal stenos is. L5-S1: There is postsu rgical change at this level ivett listhe sis with welding pantograph operator ior disc bulge/ disc uncove ring. Bilate ral facet arthro deena. Overal l findin gs contri bute to modera te left and severe right neural forami nal stenos is with minima l spinal canal stenos is. Spinal canal: The conus termin ates at L1-L2. There is clumpi ng of the cauda equina (for instan ce 12:26) . Coloni c divert iculos is. Subcen timete r left adrena l nodule measur ing 7 mm. Simple appear ing right renal cyst. Enlarg ement of the common bile duct measur ing 1.2 cm. 017 MR/MR lumbar spine wo con IMPRES ANDRIA: 1. There is transi tional lumbos acral anatom y. For the purpos es of this report , the transi tional verteb ra is referr ed to as a partia lly lumbar ized S1. 2. New left subart icular inferi or disc extrus ion at L2-L3 which contac ts the descen ding left L3 nerve root. 3. There is clumpi ng of the cauda equina . Findin gs can be seen as a sequel a of arachn oiditi s. 4. 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 5. Enlarg ement of the common bile duct. A noneme rgent MRCP with and withou t contra st is recomm ended for furthe r assess ment. Electr onical ly Signed By: Shen Panchal MD On: 1114 Dictat ed By: Shen Panchal MD 1650 Signed By: Shen Panchal MD 1114 [facility] [address] [place] [address], [address], 10/18/2024 09:12:48 10/18/1910/16/2024 MR lumba r spine (C-) CPT 41992 [facility] at [facility] Access ion Number : [id number] Lam sparrow Name: Paras Billings Record Number : [id number] Date of : 1940 Date of Exam: 2024 Referr ing Physic natividad: [facility] [address] [facility] [address] Exam: MR Lumbar Spine (C-) CPT 01329 Room Descri ption: [facility] Siem Altea 1.5 [facility] [address] [place] [address] Magnet ic Resona nce Report Signed Lam t: Hakan Billings MR#: [id number] : 1940 Acct:H [id number] Age/Se x: 83 / M ADM Date: Loc: HE.MRI Attend ing Dr: [facility] Physic natividad: Tri Singh DO Date of Servic e: Proced ure(s) : MR lumbar spine wo con Access ion Number (s): [id number] H cc: Tri Singh DO STUDY: MR lumbar spine wo con 10/17/19 4:50 PM HISTOR Y: Radicu lopath y. COMPAR KALYANI: 024 TECHNI QUE: Multis equenc e multip lanar MRI of the lumbar spine withou t intrav enous contra stDayan BLACKWELL GS: Bone: There is transi tional lumbos acral anatom y. For the purpos es of this report , the transi tional verteb ra is referr ed to as a partia lly lumbar ized S1 with a rudime ntary S1-S2 disc. There is preser vation the normal lumbar lordos is. There is 3 mm ivett listhe sis of L5 on S1. There is trace retrol isthes is of L2 on L3. Verteb ral body height s appear mainta ined. There is a probab le micha ioma or focal fat in L3. No suspic ious focal marrow replac ing lesion . Discs and endpla quinn: There is diffus e loss of disc height and disc desicc ation throug hout the lumbar spine. There are associ ated degene rative endpla te change s includ ing a compon ent of Modic type I endpla te change at L5-S1. T12-L1 : There is no disc hernia tion or signif icant spinal canal stenos is or neural forami nal stenos is. L1-2: There is no disc hernia tion or signif icant spinal canal stenos is or neural forami nal stenos is. L2-3: Left subart icular inferi or disc extrus ion which likely contac ts the descen ding left L3 nerve roots. Bilate ral facet arthro deena. Overal l findin gs contri bute to trace right and mild left neural forami nal stenos is withou t signif icant spinal canal stenos is. The disc extrus ion appear s new compar ed to the prior study. L3-4: Slight welding pantograph operator ior disc bulge and bilate ral facet arthro deena. No signif icant spinal canal or neural forami nal narrow ing. L4-5: Tack Cutter ior disc bulge and bilate ral facet arthro deena. Findin gs contri bute to modera te bilate ral neural forami nal stenos is and mild spinal canal stenos is. L5-S1: There is postsu rgical change at this level ivett listhe sis with welding pantograph operator ior disc bulge/ disc uncove ring. Bilate ral facet arthro deena. Overal l findin gs contri bute to modera te left and severe right neural forami nal stenos is with minima l spinal canal stenos is. Spinal canal: The conus termin ates at L1-L2. There is clumpi ng of the cauda equina (for instan ce 12:26) . Coloni c divert iculos is. Subcen timete r left adrena l nodule measur ing 7 mm. Simple appear ing right renal cyst. Enlarg ement of the common bile duct measur ing 1.2 cm. 017 MR/MR lumbar spine wo con IMPRES ANDRIA: 1. There is transi tional lumbos acral anatom y. For the purpos es of this report , the transi tional verteb ra is referr ed to as a partia lly lumbar ized S1. 2. New left subart icular inferi or disc extrus ion at L2-L3 which contac ts the descen ding left L3 nerve root. 3. There is clumpi ng of the cauda equina . Findin gs can be seen as a sequel a of arachn oiditi s. 4. 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 5. Enlarg ement of the common bile duct. A noneme rgent MRCP with and withou t contra st is recomm ended for furthe r assess ment. Electr onical ly Signed By: Shen Panchal MD On: 1114 Dictat ed By: Shen Panchal MD 1650 Signed By: Shen Panchal MD 1114 Electr onical ly Signed By: Shen Panchal MD [facility] [address] [place], [address], 11/08/2024 17:51:03 11/17/1911/15/2024 ir fluor oscop y <1HR [facility] [address] [place] [address] Interv ention al Radiol ogy Rpt Signed Patien t: Hakan Billings MR#: [id number] : 1940 Acct:H [id number] Age/Se x: 84 / M ADM Date: Loc: HE.OR Attend ing Dr: Nika walker MD Orderi ng Physic natividad: Nika walker MD Date of Servic e: Proced ure(s) : IR fluoro scopy <1hr Access ion Number (s): [id number] H cc: Tri T Divito DO EXAM: IR fluoro scopy <1hr CLINIC AL INDICA TION: RT CYSTO RETRO PYELOG NATALIE FINDIN GS: Cumula tive dose 2.5 mGy. 10 spot fluoro scopic images were submit jd. Fluoro scopy was provid ed for bilate ral retrog rade ureter ogram . No hydron ephros is or visibl e fillin g defect s 004 IR/IR fluoro scopy <1hr IMPRES ANDRIA: Fluoro scopy provid ed for bilate ral retrog rade ureter ogram Electr onical ly Signed By: Colette Medel MD On: 930 Dictat ed By: Colette Medel MD 1119 Signed By: Colette Medel MD [facility]30 [facility] [address] [place] [address], [address], 11/23/2024 15:39:45 Result Notes Documentation Provider Name and Address Organization Details Recorded Time Ct, Abdomen + Pelvis, W/o Contrast : [address] [address] [address] Scan Report Signed Patient: Paras Moralez MR#: [id number] : 1940 Acct:[id number] Age/Sex: 83 / M ADM Date: 10/01/24 Loc: HE.ER Attending Dr: Ordering Physician: Sudhir HOUSTON Date of Service: 10/01/24 Procedure(s): CT abdomen pelvis wo IV con Accession Number(s): [id number] cc: Tri T Divito DO Procedure: CT abdomen pelvis wo IV con 10/01/2024 1:35 PM Indications: Testicular/inguinal pain, Hematuria Comparison: None TECHNIQUE: Helical, multidetector row CT was performed through the abdomen and pelvis without intravenous contrast material. Targeted CT protocols using provided history and dose modulation techniques based on this patient's anatomy were employed to minimize radiation exposure. Image post- processing was performed in the axial, sagittal, and coronal planes. The lack of intravenous contrast limits the evaluation of the solid organs and vessels. FINDINGS: ABDOMEN Heart: The visualized portions are unremarkable. Lung bases: Unremarkable. Hepatobiliary: There are at least 4 hypodensities in the liver largest of which measures 2.2 cm, likely cysts. No biliary ductal dilatation. Gallbladder: No radiopaque gallstones. Pancreas: Unremarkable for technique. Spleen: Unremarkable without intravenous contrast. Adrenals: There is slight thickening of the left adrenal gland. The right adrenal gland is unremarkable. Kidneys/Ureters: There is a 4.2 cm exophytic hypodensity in the upper pole of the right kidney likely a cyst. There is no hydronephrosis or obstructing renal calculus. Evaluation is limited due to lack of intravenous contrast. Gastrointestinal tract: The appendix is normal. There is a moderate amount of fecal material in the large bowel. There is no bowel obstruction. There are scattered colonic diverticuli without CT evidence of acute diverticulitis. Lymph nodes: No pathologic lymphadenopathy. Retroperitoneum: No free air or free fluid. Vascular: There is mild atherosclerosis. There is no abdominal aortic aneurysm. PELVIS: Pelvic organs: No pelvic masses or inflammatory process is identified. Bones: No acute abnormality. There is grade 1 anterior listhesis of L5 on S1. CT/CT abdomen pelvis wo IV con IMPRESSION: No CT evidence of an acute intra-abdominal process on this limited noncontrast study. There is a 4.2 cm exophytic hypodensity in the upper pole of the right kidney likely a cyst. There is no hydronephrosis or obstructing renal calculus. If hematuria persists, consider outpatient multiphase CT urogram to further evaluate. Electronically Signed By: Yuliet Rivera MD On: 10/01/24 1405 Dictated By: Yuliet Rivera MD 10/01/24 1335 Signed By: Yuliet Rivera MD 10/01/24 1405 Spencer Barney NP [address] [place] [address], [id number], [facility] 10/05/2024 14:32:05 Mri, Lumbar Spine, W/o Contrast : [address] [address] Magnetic Resonance Report Signed Patient: Paras Moralez MR#: [id number] : 1940 Acct:[id number] Age/Sex: 83 / M ADM Date: 10/16/24 Loc: .MRI Attending Dr: Tri Singh DO Ordering Physician: Tri Singh DO Date of Service: 10/16/24 Procedure(s): MR lumbar spine wo con Accession Number(s): [id number] cc: Tri Singh DO STUDY: MR lumbar spine wo con 10/16/2024 4:50 PM HISTORY: Radiculopathy. COMPARISON: 07/30/2023 TECHNIQUE: Multisequence multiplanar MRI of the lumbar spine without intravenous contrast. FINDINGS: Bone: There is transitional lumbosacral anatomy. For the purposes of this report, the transitional vertebra is referred to as a partially lumbarized S1 with a rudimentary S1-S2 disc. There is preservation the normal lumbar lordosis. There is 3 mm anterolisthesis of L5 on S1. There is trace retrolisthesis of L2 on L3. Vertebral body heights appear maintained. There is a probable hemangioma or focal fat in L3. No suspicious focal marrow replacing lesion. Discs and endplates: There is diffuse loss of disc height and disc desiccation throughout the lumbar spine. There are associated degenerative endplate changes including a component of Modic type I endplate change at L5-S1. T12-L1: There is no disc herniation or significant spinal canal stenosis or neural foraminal stenosis. L1-2: There is no disc herniation or significant spinal canal stenosis or neural foraminal stenosis. L2-3: Left subarticular inferior disc extrusion which likely contacts the descending left L3 nerve roots. Bilateral facet arthropathy. Overall findings contribute to trace right and mild left neural foraminal stenosis without significant spinal canal stenosis. The disc extrusion appears new compared to the prior study. L3-4: Slight posterior disc bulge and bilateral facet arthropathy. No significant spinal canal or neural foraminal narrowing. L4-5: Posterior disc bulge and bilateral facet arthropathy. Findings contribute to moderate bilateral neural foraminal stenosis and mild spinal canal stenosis. L5-S1: There is postsurgical change at this level anterolisthesis with posterior disc bulge/disc uncovering. Bilateral facet arthropathy. Overall findings contribute to moderate left and severe right neural foraminal stenosis with minimal spinal canal stenosis. Spinal canal: The conus terminates at L1-L2. There is clumping of the cauda equina (for instance 12:26). Colonic diverticulosis. Subcentimeter left adrenal nodule measuring 7 mm. Simple appearing right renal cyst. Enlargement of the common bile duct measuring 1.2 cm. MR/MR lumbar spine wo con IMPRESSION: 1. There is transitional lumbosacral anatomy. For the purposes of this report, the transitional vertebra is referred to as a partially lumbarized S1. 2. New left subarticular inferior disc extrusion at L2-L3 which contacts the descending left L3 nerve root. 3. There is clumping of the cauda equina. 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 4. Severe right and moderate left neural foraminal stenosis at L5-S1. 5. Enlargement of the common bile duct. A nonemergent MRCP with and without contrast is recommended for further assessment. Electronically Signed By: Shen Panchal MD On: 10/17/24 1114 Dictated By: Shen Panchal MD 10/16/24 1650 Signed By: Shen Panchal MD 10/17/24 1114 Tri Singh DO [address] [place], [address] 10/18/2024 09:12:48 Problems Name Problem SNOMED Code Status Onset Date Resolution Date Notes Provider Name and Address Organization Details Recorded Time Hypertensive disorder 50767751 Active 2022 MYLES Gale, [facility] 3 08:05:32 Hyperlipidem ia 20136918 Active 2022 MYLES Gale, [facility] 3 08:04:23 Lumbar spondylosis 262818597 Active 2022 MYLES Gale, [facility] 3 08:05:51 Hearing loss 01127854 Active 2022 MYLES Gale, 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 Tri Singh DO [address] [place], [address], [facility] 3 09:54:49 Benign prostatic hyperplasia 089629933 Active 2022 Tri DiVito, DO [address] [facility], [address], [facility] 3 09:59:30 Gastroesopha geal reflux disease 993368196 Active 2022 Tri DiVito, DO [address] [place], [address], [facility] 3 09:59:22 Moderate persistent asthma 433247361 Active 2022 Tri DiVjo-ann, [address] [place], [address], [facility] 3 09:59:59 Chronic constipation 837597490 Active 2022 Tri DiVjo-ann, [address] [place], [address], [facility] 3 10:00:19 Glaucoma 46919055 Active 2022 Tri DiVjo-ann, [address] [place], [address], [facility] 3 10:01:51 Tear film insufficienc y 70582679 Active 2022 Tri Marteljo-ann, [address] [place], [address], [facility] 3 10:02:00 Seizure disorder 055388953 Active 2022 Torie Christy LPN [facility] 3 08:11:33 Problem Notes None recorded. Procedures Surgical History Date Name Laterality Status Provider Name and Address Organization Details Recorded Time 10/14/19 25 IPSS - International Prostate Symptom Score completed Jennifer Sandhu [facility] 10/13/2024 08:41:48 03/08/19 25 Upper gi endoscopy performed completed Torie Christy LPN [facility] 03/17/2024 07:43:57 01/12/20 24 Mini-Mental State Exam (MMSE) completed Torie Christy LPN [facility] 01/12/2024 09:07:44 01/12/20 24 Instrumental Activities of Daily Living completed Torie Christy LPN [facility] 01/12/2024 09:05:40 01/12/20 24 Activities of Daily Living Scale completed Torie Christy LPN [facility] 01/12/2024 09:04:49 11/23/19 24 injection of steroid completed Etelvina Montenegro CNA [facility] 11/23/2023 15:42:29 11/23/19 24 injection of steroid completed Etelvina Montenegro CONSTRUCTION INSPECTOR [facility] 11/23/2023 15:44:44 11/23/19 24 lumbar epidural steroid injection completed Etelvina Montenegro CONSTRUCTION INSPECTOR [facility] 11/23/2023 15:46:39 09/09/19 24 epidural steroid injection completed Alejandra Odell [facility] 09/09/2023 10:01:24 02/24/19 24 upper GI endoscopy w/biopsy completed Torie Christy LPN [facility] 03/01/2023 08:42:56 01/09/20 23 Mini-Mental State Exam (MMSE) completed Tri Singh, DO [address] [place], [address], [facility] 01/10/2023 18:38:43 01/09/20 23 Instrumental Activities of Daily Living completed Tri DiVjo-ann, DO [address] [place], [address], [facility] 01/10/2023 18:39:41 01/09/20 23 Activities of Daily Living Scale completed Tri DiVjo-ann, DO [address] [place], [address], [facility] 01/10/2023 18:39:21 03/22/19 19 Trigger Point Injection completed Jeff Reyes MD [address] [place] [address], [place], [address], [facility] 03/22/2018 11:47:22 02/08/18 60 hernia repair completed Torie Christy LPN [facility] 07/17/2022 09:11:42 cataract completed Torie Christy [facility] 07/17/2022 09:11:53 Appendectomy completed Torie Christy [facility] 07/17/2022 09:12:19 hemigastrectomy completed Fawad Glass [facility] 07/17/2022 10:08:20 laminectomy completed Toriejose rafael Christy [facility] 08/05/2022 08:14:07 left hydrocelectomy completed Torie Christy [facility] 08/05/2022 08:14:24 Imaging Results None recorded. Procedure Notes None recorded. Medical Equipment None Reported. Allergies Allergen ID Allergen Name Allergen Category Reaction Reaction Severity Criticality Documentation Date Start Date Code Code System Note Provider Name and Address Organization Details Recorded Time 149475 acetamino phen / oxycodone medicatio n confusion Not available Not available 10/13/2024 15866 3 RxNorm Jennifer mauricio [facility] 09:25:24 Medications Name Sig Start Date Stop Date Status Note LastModified by Organization Details LastModified Time montelukast sodium 10 mg tabs 1 qd 07/17 completed Not Available Not Available Not Available ondansetron odt 4 mg tbdp prn 02/25 completed Not Available Not Available Not Available simvastatin 40 mg tabs 07/27 completed Not [...] Available Not Available simvastatin 40 mg tablet TAKE 1 TABLET DAILY 2024 active Not Available Not Available Not Avai lable zonisamide 100 mg capsule TAKE 2 CAPSULES [...] e magnesium 40 mg capsule,del ayed release TAKE 1 CAPSULE TWICE A DAY 2024 active Not Available Not Available Not Avai lable brimonidine 0.2 % eye drops active Not [...] 4 mg tablets in a dose pack TAKE 6 TABLETS ON DAY 1 DIRECTED ON PACKAGE AND DECREASE BY 1 TAB EACH DAY FOR A TOTAL OF 6 DAYS 10/13 completed Not Available Not Available Not Available celecoxib 100 mg capsule TAKE 1 CAPSULE BY MOUTH TWICE DAILY NEEDED active Not Available Not Available No t Available lisinopril 40 mg tablet TAKE ONE-HALF (1/2) TABLET DAILY 2024 active Not Available Not Available Not Avai lable finasteride 5 mg tablet TAKE 1 TABLET DAILY 2024 active OCTAVIO . POV 5. Not Available Not Available Not Available oxycodone 5 mg tablet TAKE 1/2 TABLET BY MOUTH TWICE DAILY NEEDED FOR PAIN. DO NOT EXCEED MORE THAN 3 DOSES IN 24 HOURS active Not Available Not Available No t Available cyclobenzap rine 5 mg tablet Take 1 tablet 3 times a day by oral route for 7 days. 10/19 completed Not Available Not Available Not Available [...] Available Not Available Aspir-Low one daily active 81 mg Not Available Not Available Not Available Centrum one daily 01/11 completed Not Available Not Available Not Available multivitami n active Not Available Not Available Not Available Restasis [...] e) 50 mcg/actuati on nasal spray,suspe nsion [place] 1 spray every day by intranasa l [...] height Body mass index (BMI) Body weight Heart rate Oxygen saturation Oxygen saturation in Arterial blood by Pulse oximetry Systolic And Diastolic Provider Name and Address Organization Details Last Updated DateTime 5 163.2 cm 21.1 kg/m2 49995.4 5 g 63 /min 97 % 97 % 120/70 mm[Hg] Torie Christy LPN [facility] 5 09:31:54 Date Recorded Body height Body mass index (BMI) Body weight Oxygen saturation Oxygen saturation in Arterial blood by Pulse oximetry Heart rate Systolic And Diastolic Provider Name and Address Organization Details Last Updated DateTime 5 163.2 cm 20.8 kg/m2 93811.9 7 g 99 % 99 % 76 /min 120/76 mm[Hg] Torie Christy LPN [facility] 5 10:04:28 Date Recorded Body height Body mass index (BMI) Body weight Systolic And Diastolic Provider Name and Address Organization Details Last Updated DateTime 10/04/2024 163.2 cm 20.5 kg/m2 27976.88 g 140/80 mm[Hg] Torie Christy LPN [facility] 10/04/2024 15:09:57 Date Recorded Body height Body mass index (BMI) Body weight Heart rate Systolic And Diastolic Provider Name and Address Organization Details Last Updated DateTime 10/13/2024 163.2 cm 20.4 kg/m2 65467.08 g 67 /min 139/81 mm[Hg] La Prabhakar [facility] 5 08:56:03 Date Recorded Body height Body mass index (BMI) Body weight Oxygen saturation Oxygen saturation in Arterial blood by Pulse oximetry Heart rate Systolic And Diastolic Provider Name and Address Organization Details Last Updated DateTime 4 163.2 cm 20.7 kg/m2 60953.4 8 g 96 % 96 % 63 /min 120/78 mm[Hg] Torie Christy LPN [facility] 4 09:08:16 Social History Question Answer Notes LastModified by Organization Details LastModified Time Tobacco Smoking Status Former Smoker quit many years ago 39 years ago Tri Singh, DO [address] [place] [address], [place], [address], [facility] 07/17/2022 10:04:49 Do You Have An Advance Directive? Yes Ynes Moralez Son Paras Moralez Information not available 07/17/2022 Is Blood Transfusion Acceptable In An Emergency? Yes Information not available 07/17/2022 What Is Your Level Of Caffeine Consumption? Moderate 1c Coffee A Day Information not available 01/12/2024 What Is Your Code Status? Full Code Information not available 07/17/2022 What Type Of Diet Are You Following? REGULAR [email or web address] Information not available 07/17/2022 What Is The Highest Grade Or Level Of School You Have Completed Or The Highest Degree You Have Received? 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 16+yearssincelastc doe [email or web address] Information not available 07/17/2022 Are There Any Guns Present In Your Home? Yes Locked Trigger Guarded Ammo Stored Separately Information not available 07/17/2022 Which Of Your Hands Is Dominant? Right [email or web address] Information not available 07/17/2022 Where Do You Live? SingleLevelHouse Lives With And Daughter Aleisha. Second Daughter Currently Staying With Them. [email or web address] Information not available 07/17/2022 Work Status Retired [...] Of Your Most Recent Tobacco Screening? 01/12/2024 [email or web address] Information not available 01/12/2024 How Many Children Do You Have? 3 Two Daughters One Son [email or web address] Information not available 07/17/2022 What Is Your Current Pack Years? [email or web address] Information not available 01/12/2024 Do You Have Any Pets? No [email or web address] Information not available 07/17/2022 What Is Your Relationship Status? Ynes melendez Information not available 07/15/2022 Do You Use Your Seat Belt Or Car Seat Routinely? Yes [email or web address] Information not available 07/17/2022 Do You Have Smoke And Carbon Monoxide Detectors In Your Home? No Information not available 07/17/2022 At What Age Did You Start Smoking Tobacco? 14 Information not available 01/12/2024 Are There Any Smokers In Your House? No [email or web address] Information not available 07/17/2022 How Much Tobacco Do You Smoke? No Information not available 01/12/2024 How Many Years Have You Smoked Tobacco? 30 Information not available 01/12/2024 Are You Currently In School? No [email or web address] Information not available 07/17/2022 Do You Have Any Dietary Restrictions? No Information not available 07/17/2022 Sex: Male Functional Status Question Answer Note LastModified by OrganGuestmobat ion Details LastModified Time Do you use any illicit or recreational drugs? No [email or web address] Information not available 07/17/2022 Do you or have you ever used any other forms of tobacco or nicotine? No Information not available 07/17/2022 What is your level of alcohol consumption? None Information not available 01/12/2024 What is your occupation? [employer] Information not available 02/18/2018 What is your exercise level? Occasional Outside work [email or web address] Information not available 07/17/2022 Mental Status None recorded. Family History Relationship Description Onset Age of this Age Resolved Age Notes LastModified by Organization Details LastModified Time Father Malignant neoplasm of lung [email or web address] Not available 08/05 08:17:43 Father Malignant neoplasm of brain [email or web address] Not available 07/17 09:09:47 Mother Amyotrophic lateral sclerosis [email or web address] Not available 08/05 08:16:17 Paternal Grandmother Acute stroke [email or web address] Not availabl e 08/05/2022 08:17:18 Paternal Grandmother Hypertensive disorder [email or web address] Not available 08/05 08:17:29 Maternal Aunt Malignant neoplasm of lung [email or web address] Not available 08/05 08:17:48 Maternal Aunt Malignant neoplasm of stomach [email or web address] Not available 08/05 08:18:07 Notes:Parents , One [...] Time pneumococcal polysaccharide PPV23 6 completed [facility] 08:00:47 pneumococcal polysaccharide PPV23 8 completed Torie Rahaim, CAR FRAMER null, [facility] 07/15/2022 08:01:00 zoster recombinant 9 completed Torie Rahaim, CAR FRAMER null, [facility] 07/15/2022 08:01:34 zoster recombinant 9 completed Torie Rahaim, CAR FRAMER null, [facility] 07/15/2022 08:01:41 COVID-19, mRNA, LNP-S, bivalent, PF, 50 mcg/0.5 mL or 25mcg/0.25 mL dose 3 [facility] 07/17/2022 09:27:11 Influenza, high-dose, quadrivalent, PF 0 [facility]/17/2022 09:27:11 Influenza, high-dose, quadrivalent, PF 1 [facility]/17/2022 09:27:11 COVID-19, mRNA, LNP-S, PF, 100 mcg/0.5mL dose or 50 mcg/0.25mL dose 1 [facility]/17/2022 09:27:11 COVID-19, mRNA, LNP-S, PF, 100 mcg/0.5mL dose or 50 mcg/0.25mL dose 1 [facility] 07/17/2022 09:27:11 COVID-19, mRNA, LNP-S, PF, 100 mcg/0.5mL dose or 50 mcg/0.25mL dose 2 [facility] 07/17/2022 09:27:11 COVID-19, mRNA, LNP-S, PF, 100 mcg/0.5mL dose or 50 mcg/0.25mL dose 1 [facility] 07/17/2022 09:27:11 Influenza, high-dose, trivalent, PF 6 completed YANI Mello, [facility] 07/17/2022 09:27:11 Influenza, high-dose, trivalent, PF 5 [facility] 07/17/2022 09:27:11 Influenza, high-dose, trivalent, PF 8 completed [facility] 07/17/2022 09:27:11 Influenza, high-dose, trivalent, PF 4 completed [facility] 07/17/2022 09:27:11 Influenza, split virus, trivalent, preservative 1 completed [facility] 07/17/2022 09:27:11 Influenza, split virus, trivalent, preservative 2 completed [facility] 07/17/2022 09:27:11 Td (adult), 2 Lf tetanus toxoid, preservative free, adsorbed 9 completed [facility] 07/17/2022 09:27:11 RSV, bivalent, protein subunit RSVpreF, diluent reconstituted, 0.5 mL, PF 3 completed Tri Singh DO [address] [place] [address], [phone], [facility] 01/12/2024 09:43:40 Influenza, adjuvanted, quadrivalent, PF 3 completed Tri Singh [address] [place], [address], [facility] 01/12/2024 09:43:40 Pneumococcal conjugate PCV20, polysaccharide [id number] conjugate, adjuvant, PF 3 completed Sharon mauricio [facility] 01/12/2024 09:49:34 Influenza, adjuvanted, trivalent, PF 4 completed Not Available formerly [facility] 10/04/2024 14:41:38 Pneumococcal conjugate PCV20, polysaccharide [id number] conjugate, adjuvant, PF 3 completed Not Available formerly [facility] 10/04/2024 14:41:38 Past Encounters Encounter ID Performer Location Encounter Start Date Encounter Closed Date Diagnosis/Indication Diagnosis SNOMED-CT Code Diagnosis ICD10 Code Diagnosis IMO Codes Diagnosis Note [id number] Jeff Reyes MD [facility] [address] [place] [address] [place] [address] 02/18/2018 08:36:46 02/18/2018 10:01:41 Lumbar radiculopathy 799952540 M54.16 right Lumbar spondylosis 06143 0009 M47.816 Spinal franco nosis of lumbar region 90379742 M48.061 mod to severe right L5S1 and right L4-5 neuroforam en [id number] Jeff Reyes MD [facility] [address] [place] [address] [place] [address] 03/22/2018 10:37:28 03/22/2018 11:50:13 Lumbar spondylosis 446931858 M47.816 Spinal franco nosis of lumbar region 14174720 M48.061 mod to severe right L5S1 and right L4-5 neuroforam en Myofascial pain 96855182 9 M79.18 right gluteal [id number] Jeff Reyes MD [facility] [address] [place] [address] [place] [address] 06/08/2018 14:27:17 06/08/2018 15:27:28 Lumbar spondylosis 283854523 M47.816 Spinal franco nosis of lumbar region 86381877 M48.061 mod to severe right L5S1 and right L4-5 neuroforam en [id number] MD [facility] [address] [place] [address] [place] [address] 09/30/2018 11:40:15 09/30/2018 12:49:53 Lumbar radiculopathy 625081721 M54.16 right Lumbar spondylosis 79566 0009 M47.816 Spinal franco nosis of lumbar region 05487941 M48.061 mod to severe right L5S1 and right L4-5 neuroforam en 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 16530122 M48.02 [id number] MD [facility] [address] [place] [address] [place] [address] 10/26/2018 08:05:36 10/26/2018 09:05:10 Lumbar radiculopathy 431042876 M54.16 right Lumbar spondylosis 15608 0009 M47.816 Spinal franco nosis of lumbar region 29451871 M48.061 mod to severe right L5S1 and right L4-5 neuroforam en 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 47352314 M48.02 multi-leve l neuroforam inal Peripheral vascular disease 056436090 I73.9 [id number] MD [facility] [address] [place] [address] [place] [address] 11/24/2018 10:49:39 11/24/2018 12:17:18 Lumbar radiculopathy 724701855 M54.16 right Lumbar spondylosis 79125 0009 M47.816 Spinal franco nosis of lumbar region 25222441 M48.061 mod to severe right L5S1 and right L4-5 neuroforam en 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 04172432 M48.02 multi-leve l neuroforam inal [id number] MD [facility] [address] [place] [address] [place] [address] 01/12/2019 14:38:11 01/12/2019 15:40:36 Lumbar radiculopathy 262501823 M54.16 right Lumbar spondylosis 51321 0009 M47.686 [id number] MD [facility] [address] [place] [address] [place] [address] 02/22/2019 13:52:37 02/22/2019 14:39:06 Lumbar radiculopathy 979240286 M54.16 right Lumbar spondylosis 55417 0009 M47.997 [id number] Jeff Reyes MD [facility] [address] [place] [address] [place] [address] 04/05/2019 08:55:52 04/05/2019 09:34:53 Lumbar radiculopathy 262284043 M54.16 right Lumbar spondylosis 11114 0009 M47.480 [id number] Jeff Reyes MD [facility] [address] [place] [address] [place] [address] 05/03/2019 08:55:50 05/03/2019 10:06:00 Lumbar radiculopathy 700095153 M54.16 right Lumbar spondylosis 19027 0009 M47.978 [id number] Jeff Reyes MD [facility] [address] [place] [address] 06/06/2019 07:45:48 06/06/2019 10:20:55 Lumbar radiculopathy 734691145 M54.16 right Lumbar spondylosis 11358 0009 M47.069 [id number] Nat Caldwell MD [facility] [address] [place] [address] 06/30/2019 14:23:37 06/30/2019 14:56:27 Removal of jefferson [id number] Z48.02 jefferson placed 06/24/2019 at [facility], removed without difficulty , wound care reviewed [id number] Jeff Reyes MD [facility] [address] [place] [address] [place] [address] 07/05/2019 13:44:12 07/05/2019 15:06:21 Lumbar radiculopathy 665038745 M54.16 right Lumbar spondylosis 07540 0009 M47.945 [id number] Jeff Reyes MD [facility] [address] [place] [address] [place] [address] 07/28/2019 13:32:10 07/28/2019 14:09:52 Lumbar radiculopathy 126280176 M54.16 right Lumbar spondylosis 48886 0009 M47.576 [id number] MD [facility] [address] [place] [address] [place] [address] 08/24/2019 13:20:07 08/24/2019 14:22:38 Lumbar radiculopathy 976706599 M54.16 right Lumbar spondylosis 44946 0009 M47.816 Lumbar post-laminectomy syndrome 632156256 M96.1 Trochanter ic bursitis of right hip 9570830549 43201 M70.61 [id number] MD [facility] [address] [place] [address] [place] [address] 10/18/2019 12:47:33 10/18/2019 14:22:53 Lumbar radiculopathy 078853614 M54.16 right Lumbar spondylosis 15228 0009 M47.816 Lumbar post-laminectomy syndrome 833097323 M96.1 Trochanter ic bursitis of right hip 4708137670 68172 M70.61 [id number] MD [facility] [address] [place] [address] [place] [address] 12/14/2019 13:35:09 12/14/2019 14:09:07 Lumbar radiculopathy 858440491 M54.16 right Lumbar spondylosis 11890 0009 M47.816 Lumbar post-laminectomy syndrome 108003452 M96.1 [id number] MD [facility] [address] [place] [address] [place] [address] 02/06/2020 13:35:35 02/06/2020 14:18:42 Lumbar radiculopathy 515007584 M54.16 right Lumbar spondylosis 06477 0009 M47.816 Lumbar post-laminectomy syndrome 870634674 M96.1 [id number] MD [facility] [address] [place] [address] [place] [address] 02/26/2020 12:41:37 02/26/2020 13:24:44 Lumbar radiculopathy 265471638 M54.16 right Lumbar spondylosis 25075 0009 M47.816 Lumbar post-laminectomy syndrome 195495282 M96.1 Lesion of lumbar spine 018829622 M99.9 [id number] CELSO Aleman [facility] [address] [place] [address] 11/23/2021 09:55:21 11/23/2021 10:41:45 Viral syndrome 134768230 B34.9 -Most likely viral, will send covid test, pt to push fluids and rest. Okay for otc supportive care. Discussed ED indication s and covid precaution s. [id number] Tri Singh [address] [address] 07/17/2022 08:45:20 07/17/2022 10:34:08 Hypertensive disorder 08270989 I10 Controlled Continue lisinopril 40 mg p.o. daily Hyperlipidemia 21825233 E78.5 Controlled Continue simvastati n p.o. dailylipid s 07/17/2022 Lumbar spondylosis 49584 0009 M47.896 Patient ne w to provider [id number] 62265 Z76.89 Health Management Male Over 50 Discussed diet, exercise and safetypros trate screening- need recordscol onoscopy: Performed by Dr BELLAMY- kenny recordsimm unization: utdscreeni ng labs order: due- ordered todayf/u 1 year Benign pro static hyperplasia 320167984 N40.0 Check PSA free and total today 3Co ntinue to follow with Dr. Davis Finasterid e 5mg po daily Chronic constipation 236 930124 K59.09 Controlled Gastroesop hageal reflux disease 566969952 K21.00 Cont esomeprazo le 40mg po daily Glaucoma 11256887 H40.9 Moderate p ersistent asthma 359142799 J45.40 ContolledC ont Flovent HFA 110 mcg 1 puff p.o. 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 Bellamy/Jr [id number] Tri Singh [address] [address] 01/08/2023 13:10:56 01/08/2023 15:51:24 Adult health examination 852469567 Z00.01 Patient should discuss medical decisions with Health Care Proxy. Recommende d screenings included colonoscop y screening age 45, earlier based on family history/ri sk factors; one time screen for hepatitis C if born between 6377-2647 or has risk factors. Recommend annual low-dose CT scan screening for high-risk individual s ages 50 to 80 years with 20 pack-year history of smoking and current smoker or quit within past 15 years. Reviewed vaccines and current recommenda tions. Basic health topics include aerobic exercise, importance of healthy/ba lanced diet and minimizing caffeine and alcohol. Administra tion of diphtheria and tetanus vaccine 78648105 Z23 up to date, TD received 08/03/18.du e next in 07/2028. Administra tion of pneumococcal vaccine 49012124 Z23 If PCV15 is used, this should be followed by a dose of PPSV23 one year later. The minimum interval is 8 weeks and can be considered in adults with an immunocomp romising condition, cochlear implant, or cerebrospi nal fluid leak.If PCV20 is used, a dose of PPSV23 is NOT indicated. ppv23 received 04/09/05 and 11/18/07. Screening for malignant neoplasm of colon 105758867 Z12.11 history of stomach CA in 1993? Viral screening 96172525 4 Z11.59 The USPSTF recommends one time screening for hepatitis C virus (HCV) infection in adults aged 18 to 79 years. Varicella vaccination 68 342284 Z23 series completed 05/12/18, 10/06/18. Smoking mo nitoring status 030964930 Z87.891 Recommend annual low-dose CT scan screening [...] the alternativ es, the patient has decided not to be screened. Influenza vaccine needed 1007660692 106 Z23 flu vaccines are currently unavailabl e in the office. Advance care planning 71 6114170 Z71.89 - Ynes Moralez Screening for malignant neoplasm of prostate 972760890 Z12.5 For men aged 55 to 69 [...] done 07/17/22- 0.29 Benign pro static hyperplasia 239976178 N40.0 PSA done 07/17/22- 0.29Contin ue to follow with Dr. Davsi Finasterid e 5mg po daily Hyperlipidemia 87988807 E78.5 Controlled Continue simvastati n p.o. dailylipid s done 07/17/2022 Hypertensive disorder 38 999762 I10 Controlled Continue lisinopril 40 mg p.o. daily Malignant neoplasm of stomach 011034415 C16.9 Status post hemigastre ctomyConti nue to have monitored by GI Dr. Bellamy/Jr Moderate p ersistent asthma 624015915 J45.40 ContolledC ont Flovent HFA 110 mcg 1 puff p.o. twice dailyCont montelukas t daily Seizure disorder 3880401 02 G40.909 stableCont zonisamide [id number] Tri Singh DO [address] [address] 07/12/2023 11:13:38 07/12/2023 11:56:23 Hypertensive disorder 93814777 I10 Controlled Continue lisinopril 20 mg p.o. daily Lumbar radiculopathy 128 997467 M54.16 L5 radiculopa thy+ severe NF narrowing on Right L5-G8rxdbj t MRIReferra l to neurosurge ry Hyperlipidemia 88729592 E78.5 Controlled Continue simvastati n p.o. dailylipid s done 07/17/2022- due today Anemia 267704425 D64.9 mild with elevated MCV last blood draw [id number] Jeff Reyes MD [facility] [address] [place] [address] [place] [address] 08/23/2023 10:54:25 08/23/2023 11:48:23 Lumbar radiculopathy 105068353 M54.16 right Lumbar spondylosis 67471 0009 M47.816 Lumbar post-laminectomy syndrome 050841153 M96.1 Trochanter ic bursitis of right hip 5193314420 93055 M70.61 Ischial bursitis 2187204 03 M70.71 M70.72 Osseous an d subluxation stenosis of lumbar intervertebral foramina 0439561173 39481 M99.63 sever right L5S1 [id number] Jeff Reyes MD [facility] [address] [place] [address] [place] [address] 10/25/2023 08:46:14 10/25/2023 09:50:01 Lumbar radiculopathy 589781611 M54.16 right Lumbar spondylosis 56395 0009 M47.816 Lumbar post-laminectomy syndrome 061970721 M96.1 Trochanter ic bursitis of right hip 1991270700 06812 M70.61 Ischial bursitis 0496995 03 M70.71 M70.72 right Osseous an d subluxation stenosis of lumbar intervertebral foramina 6253727377 56979 M99.63 sever right L5S1 [id number] Tri Singh DO [address] [address] 01/12/2024 08:43:09 01/12/2024 10:28:04 Adult health examination 915410324 Z00.01 Patient should discuss medical decisions with Health Care Proxy. Recommende d screenings included colonoscop y screening age 45, earlier based on family history/ri sk factors; one time screen for hepatitis C if born between 9584-4146 or has risk factors. Recommend annual low-dose CT scan screening for high-risk individual s ages 50 to 80 years with 20 pack-year history of smoking and current smoker or quit within past 15 years. Reviewed vaccines and current recommenda tions. Basic health topics include aerobic exercise, importance of healthy/ba lanced diet and minimizing caffeine and alcohol. Administra tion of diphtheria and tetanus vaccine 15679414 Z23 up to date, TD received 08/03/18.du e next in 07/2028. Administra tion of pneumococcal vaccine 22645332 Z23 Received PPV23 11/18/07 and 04/09/05\Had PVC 20 last year- need records Screening for malignant neoplasm of colon 447931339 Z12.11 history of stomach CA in 1993 Viral screening 68754788 4 Z11.59 The USPSTF recommends one time screening for hepatitis C virus (HCV) infection in adults aged 18 to 79 years. Varicella vaccination 68 501747 Z23 series completed 05/12/18 and 10/06/18. Ophthalmic examination and evaluation 15171564 Z01.00 Last done at [facility] on 12/13/23 Advance care planning 71 9263381 Z71.89 - Ynes Moralez Screening for malignant neoplasm of prostate 326333857 Z12.5 PSA completed 07/12/23 and was normal. Influenza vaccine needed 8046598843 106 Z23 Last received 12/10/23 Patient recommende d to go to their local pharmacy to have influenza vaccine administer ed. Discussed importance of influenza vaccine due to the patient's risk of contractin g the disease. A handout was offered to enhance understand ing of the effects and side effects of the vaccine. Hyperlipidemia 86228405 E78.5 Controlled Continue simvastati n p.o. dailylipid s done 07/12/2023 Hypertensive disorder 38 525357 I10 Controlled Continue lisinopril 20 mg p.o. dailycmp done 07/12/23 Moderate p ersistent asthma 744780711 J45.40 ContolledC ont Flovent HFA 110 mcg 1 puff p.o. twice dailyCont montelukas t daily Benign pro static hyperplasia 631787418 N40.0 PSA done 07/12/23- 0.29Contin ue to follow with Dr. Davis Finasterid e 5mg po daily Lumbar spondylosis 38163 0009 M47.816 using lidocaine patch which helps. Actinic keratosis 007 L57.0 frozen with liquid nitrogen Malignant neoplasm of stomach 103160748 C16.9 Status post hemigastre ctomyConti nue to have monitored by GI Dr. Bellamy/Jr Gastroesop hageal reflux disease 720367705 K21.00 Patient with history of stomach CACont esomeprazo le 40mg po BID Depression screening 171 650397 Z13.31 Scored and 8, but this was due to pain and concentrat ion, no signs of depression [id number] Jeff Reyes MD [facility] [address] [place] [address] [place] [address] 01/04/2024 08:44:36 01/04/2024 09:34:34 Lumbar radiculopathy 251731517 M54.16 right Lumbar spondylosis 42473 0009 M47.816 Lumbar post-laminectomy syndrome 591231907 M96.1 Trochanter ic bursitis of right hip 6828540213 45452 M70.61 Ischial bursitis 2171736 03 M70.71 M70.72 right Osseous an d subluxation stenosis of lumbar intervertebral foramina 6348309312 92276 M99.63 sever right L5S1 [id number] Tri Singh DO [address] [address] 07/12/2024 09:13:57 07/12/2024 10:10:31 Hypertensive disorder 84204447 I10 Controlled Continue lisinopril 20 mg p.o. dailycmp done 01/12/24 Benign pro static hyperplasia 220281640 N40.0 PSA done 07/12/23- 0.29- dueWas with Dr. MORGAN who moved out of the areaWould like monitoring hereCont Finasterid e 5mg po daily [id number] Spencer Barney NP [address] [address] 09/27/2024 09:45:56 09/27/2024 11:05:59 Left inguinal pain 9970816521 9937356 R10.32 626400 Us of left groin to r/o hernia vs mesh related complicati onsUS of scrotum to r/o torsion Vs. epididymit is vs. hydrocele/ varicocele Avoid heavy lifting, straining, or sudden movements that may worsen groin or testicular pain.Use acetaminop hen or NSAIDs as needed for pain.Preve nt constipati on by eating a high-fiber diet, drinking plenty of fluids, and using stool softeners if needed. Nocturia 048513451 R35.1 48153 Get urine dipstick and culture to r/o infection. PSA 07/13/24 0.37Limit caffeine, alcohol or water intake 2 hours before bed. [id number] Tri Singh, [address] [address] 10/04/2024 14:41:01 10/06/2024 07:28:17 Lumbar radiculopathy 127663818 M54.16 29955 MRITransit ional lumbosacra l vertebral body with lumbarizat ion of S1. Unchangedd egenerativ e changes of the lumbar spine since February 2020 (see that report for details). Most significan tly there is unchanged grade 1 anterolist hesis L5 on S1 with severe right neural foraminal narrowing, and severe bilateral facet joint arthropath y as well as mild spinal canal stenosis. 2. The indetermin ate 12 mm enhancing right sacral alar lesion reported on prior. MRI is not within the field-of-v iew of this study and was negative on prior bone scan Patient with pain in lumbar area in distributi on of L5mild spinal stenosisne eds surgery and was trying to wait until later this year after his has her eye from.Needs new MRI for surgerysta rt steriod dose packhas oxycodones tart flexeril 5mg po TID Left inguinal pain 22120 30338 2938613 R10.32 598620 ? stone- negative on non contrast CT+ hematuria and protien in the urine+ severe painreferr al to urologyinc rease fluids [id number] Julian Yi MD [facility] [address] [place] [address] 10/13/2024 08:20:22 10/13/2024 09:50:32 Microscopic hematuria 431643996 R31.29 [id number] Paras had microscopi c hematuria when he was in the emergency room and no stones were seen on the noncontras t CAT scan. I recommend that we perform a cystoscopy and bilateral retrograde pyelogram to evaluate further and he agrees Pain in scrotum 32049365 N50.82 [id number] I told Paras's that the pain could have been from passing stone or gravel but he is tender and I believe he may have an epididymit is on the left side I have ordered Celebrex 100 mg once or twice a day as needed for pain Benign pro static hyperplasia with outflow obstruction 332134620 N40.1 N13.8 85404541 Paras has a very slow urinary stream which is mildly bothersome . We reviewed treatment options for BPH and I will make a final recommenda tion after cystoscopy Health Concerns Section Related Observation LastModified by Organization Detai ls LastModified Time None Recorded Concern Status LastModified by Organization Details LastModified Time None Recorded Advance Directives Directive Y: Ynes moura Elvin Moralez Payers Insurance Date Sequence Insurance Name Policy Number Policy Rivera Covered Member ID Rivera Member ID Guarantor Name 11/10/2024 1 [place]: [employer] Paras Amrit Naomy [id number] Paras Moralez 10/10/2024 2 [employer] (MEDICARE REPLACEMENT/A DVANTAGE - HMO) Paras Moralez [id number] Paras Moralez 11/10/2024 2 [employer] (MEDICARE SUPPLEMENT) Paras Moralez [id number] Paras Moralez 10/10/2024 2 [facility] (MEDICARE REPLACEMENT/A DVANTAGE - PPO) Paras Moralez [id number] Paras Moralez Notes Date Note Type Note Provider Name and Address Organization Details Recorded Time 01/12/2024 text/html Have you fallen in the past 12 months? yespatient states he has fallen a couple of times. 83 yo M presents for Medicare physical.cpe labs completed 07/12/23 Patient states his [employer] company advised him next year Flovent will no longer be covered, will need an alternative. No longer seeing a cobol programmer as she retired. Saw Dr. Morgan on 12/13/23, he will be leaving and opening an office down the [facility], there is a provider replacing him but was advised he would no longer need a urologist, was only seeing him for his Finasteride script which was renewed for 1 year already, wondering if CD will take this on. Tri Singh DO [address] [facility] [place], [address], [facility] 01/12/2024 10:27:12 07/12/2024 text/html 83 year old male presents today for a blood pressure check. Doing well today. No concerns. HTN- Denies CP/SOB/Palp/TILLMAN, blurred vision, tinnitus, no epistaxis. Patient is not seein urology anymore for BPH. Would like me to monitor prostate. Tri Singh DO [address] [facility] [place], [address], [facility] 07/12/2024 10:02:00 09/27/2024 text/html ROS as noted in the HPI Pt 83y.o. male present for c/o lower left pelvic pain groin area. Can feel this when he coughs, travels down into his left testicle. Stats he was cutting up a bunch of wood recently and feels like this aggravated his back and leg pain even more. Pain in his upper thigh area. Discomfort ongoing for 1 week. hx of hernia repair in both groin areas years ago. Unsure which side but one did have a mesh. Pain in his groin area when needing to urinate or having a bowel movement. States he did an at home UTI kit yesterday and states this was negative. States he is waking up every 2 hrs at night to urinate recently which is unlike him. Denies any fever, severe or worsening pain, inability to urinate, penile discharge, hematuria, or signs of bowel obstruction. Does have BPH-- currently on finasteride 5mg dailyLast PSA 2024 WNL. Tri Marteljo-annDO [address] [facility] [place], [address], [facility] 10/03/2024 15:54:57 10/04/2024 text/html 83 year old male presents today for an ED f/u. Patient was initially see in the office on 09/27 for c/o left sided groin pain and nocturia. UA dip in the office showing leuks, blood, ketones and protein, urine culture negative for infection. US scrotum and exremity both ordered and referral to urologist was placed. Patient presented to ED on 10/01/24 for the same complaints. Patient had lab work and imaging done: US scrotum and CT scan of the abdomen.IMPRESSION:( US scrotum)No sonographic evidence of testicular torsion or testicular mass.No sonographic evidence of bilateral inguinal hernia in this patient status post bilateral inguinal hernia repair.IMPRESSION:(C T abd+pelvis)No CT evidence of an acute intra-abdominal process on this limited non contrast study.There is a 4.2 cm exophytic hypo density in the upper pole of the right kidney likely a cyst.There is no hydronephrosis or obstructing renal calculus.If hematuria persists, consider outpatient multiphase CT urogram to further evaluate. Patient states that the pain was in the testicle area. Had to urinate every 2 hours. Would send a pain up and into the left leg. The had pain in the back. Was worried that he had a hernia. States he is still having the pain on the left side, pain is more in the leg now. Also in the right leg now as well. Really driving him crazy, feels like spasms. Unsure if this is related to his back. He was given 7 days worth of oxycodone half tab twice daily which works well and by noon time it wears off. Still waking up every 2hrs at night to urinate.Unable to get into urology until January, considered a new patient since Dr. Morgan left and their office is a new name. Would like a referral to someone else. Patient denied fecal incontinence or urinary incontinence. More constipated. Taking metamucil. Patient has a history of stomach cancer. Tri Singh, DO [address] [facility], [place], [address], [place] [facility] 10/04/2024 17:02:43 10/13/2024 text/html Paras is an 83-year-old white male who developed left inguinal and testicular pain 2 to 3 weeks ago it got gradually worse he went to the emergency room where CT scan was performed as well as scrotal ultrasound both of these were negative. He did however have microhematuria with 5-10 red cells per high-powered field. He has never had a UTI or kidney stone. He reports that he had previously been lifting a lot of wood at home but the pain was not sudden onset during work it was gradual onset over several weeks. He has some mild lower urinary tract symptoms but nothing is terribly bothersome. His chief complaint is a weak stream his IPSS score is 10 out of 35 for severity and 3 out of 6 for bother. Julian Yi MD [address] [place] [address], [phone], [facility] 10/13/2024 09:33:03
--- OUTSIDE RECORDS SUMMARY | 2024-11-24 15:51 | XMS_ITS | Data Portability ---
Author Organization [facility], [facility]admin Address [address] [place] [phone] Care Team Providers Care Candy Supervisor Name Role Phone JEFFYMARIMARJACKI Primary Care Provider JACQUELINE REED Home Economist [phone] Assessment Encounter Date Assessment Date Assessment LastModified [...] encounter the physician is in the office [facility], [address] [place] [address], [address], [facility]. The visit began at: 1436 The visit ended at: 1447 Greater than 50% of the time was spent in counseling and coordination of care. The telehealth visit involved the patient. [email or web address] Not available 11/20/2019 14:46:44 Plan of Treatment Reminders Order Date Submit Date Provider Last Modified By Organization Details Last Modified Time Details Appointments None recorded. Lab BMP, serum or plasma 2016 017 [employer] [facility], [address] [place] [address], [id number], 8 09:54:21 Referral physical therapist referral 2018 019 [facility], [address] [place] [address], [id number], 9 14:39:26 Procedures None recorded. Surgeries None recorded. Imaging MRI, cervical spine, w/o contrast [address] ([facility]), [address] [place] [address], [id number], 9 07:59:58 Medication Orders zonisamide 100 mg capsule 2017 018 INTERFACE [facility], [facility] [address], [facility], [place], [place], [id number], 8 15:19:59 oxcarbazep ine 300 mg tablet 2017 018 [id number], [address] [place], [place], [phone], 9 14:01:15 Patient TargetsNo targets recorded. Patient Instructions Encounter Date Encounter Id Patient Instructions Last Modified By Organization Details Last Modified Time 04/01/2017 [id number] epilepsy: care instructions [email or web address] Not available 04/01/2017 13:49:47 11/20/2019 [id number] epilepsy: care instructions [email or web address] Not available 11/20/2019 14:37:34 Reason for Referral Physical Therapist Referral for Cervical radiculopathy Referring Physician: Daren Page, Neurology, Encounter Date: 07/11/2018 Results Created Date Observation Date Name Description Value Unit Range Abnormal Flag Note LastModifiedBy Organization Detail LastModifiedTime 12/17/19 19 12/16/2018 [facility] [address] [place] [id number] TOYIN T: CLYDE ZHANG REG REF/ : WPAT 6735 HEART RATE 53 RR Interv al 1132 Atrial Rate 53 P-R Interv al 160 P Durati on 126 P Horizo ntal Upper Tract -48 P Front Upper Tract 36 Q Onset 499 QRSD Interv al 92 QT Interv al 426 QTcB 400 QTcF 409 QRS Horizo ntal Upper Tract -28 QRS Upper Tract 18 I-40 Horizo ntal Upper Tract 20 I-40 Front Upper Tract 49 T-40 Horizo ntal Upper Tract -78 T-40 Front Upper Tract 18 T Horizo ntal Upper Tract 35 T Wave Upper Tract 34 S-T Horizo ntal Upper Tract 53 S-T Front Upper Tract 50 ECG Severi ty - NORMAL ECG - ECG Impres analia Sinus rhythm _ (Elect josseline matias Signed by) Trans D T: 1312 Signed D T: 2237 Report #: [id number] Orderi ng physic natividad: Mario henson Other provid ers: Mario henson, Mario henson, , Jacki Rivera , , , [email or web address] [facility] (Radiology) [address] [place] [address], [id number], 12/17/2018 12:52:07 Result Notes None recorded. Problems Name Problem SNOMED Code Status Onset Date Resolution Date Notes Provider Name and Address Organization Details Recorded Time Seizure 49757211 Active 017 CHRIS SOTO MD [address] [place] [address], [phone] , [facility] 10/19/2016 10:07:18 Epilepsy 05839592 Active 018 Daren Page PA-C [address] [place] [address], [phone] , [facility] 07/12/2017 15:16:50 Problem Notes None recorded. Medical Equipment None Reported. Allergies No known drug allergies Medications Name Sig Start Date Stop Date Status Note LastModified by Organization Details LastModified Time oxycodone hydrochlori de 5 mg tabs 11/19 [...] Available Not Available Not Available methylpredn isolone dose pack 4 mg tbpk 11/19 completed Not Available Not Available Not Available zonisamide 100 mg caps 11/19 completed Not Available Not Available Not Available pregabalin 150 mg caps 11/19 completed [...] Not Available Not Available apap/codein e tab 300-60mg 11/19 completed Not [...] Not Available Not Available No t Available hydroco/apa p tab 7.5-325 11/19 completed Not Available Not Available Not Available flovent hfa 110 mcg/act aero 11/19 completed Not Available Not Available Not Available esomeprazol e magnesium 40 mg cpdr 11/19 completed Not Available Not Available Not Available lisinopril 40 mg tabs active Not Available Not Available N ot Available pregabalin 75 mg caps 11/19 completed [...] propionate 50 mcg/actuati on nasal spray,suspe nsion [place] 1 spray every day by intranasa l [...] Available Not Available Not Available Fluzone High-Dose 1472-6114 (PF) 180 mcg/0.5 mL intramuscul ar syringe ADM 0.5ML IM UTD 07/11 completed Not Available Not Available Not Available Fluzone High-Dose (PF) 180 mcg/0.5 mL intramuscul ar syringe ADM 0.5ML IM UTD 11/19 completed Not Available Not Available Not Available Fluzone High-Dose Quad (PF) 240 mcg/0.7 mL IM syringe ADM 0.7ML IM UTD 11/19 completed Not Available Not Available Not Available Vitals Date Recorded Body height Body mass index (BMI) Body weight Oxygen saturation Oxygen saturation in Arterial blood by Pulse oximetry Heart rate Systolic And Diastolic Provider Name and Address Organization Details Last Updated DateTime 8 167.64 cm 22 kg/m2 64833.5 6 g 100 % 100 % 60 /min 136/79 mm[Hg] Yohana Walker [facility] 8 13:31:29 Date Recorded Body height Body mass index (BMI) Body weight Oxygen saturation Oxygen saturation in Arterial blood by Pulse oximetry Heart rate Systolic And Diastolic Provider Name and Address Organization Details Last Updated DateTime 9 167.64 cm 21 kg/m2 66785.0 1 g 99 % 99 % 63 /min 162/84 mm[Hg] Randa Abarca [facility] 9 14:01:46 Date Recorded Body height Body mass index (BMI) Body weight Oxygen saturation Oxygen saturation in Arterial blood by Pulse oximetry Heart rate Systolic And Diastolic Provider Name and Address Organization Details Last Updated DateTime 8 167.64 cm 21.6 kg/m2 87466.3 8 g 100 % 100 % 63 /min 146/81 mm[Hg] Yohana Walker [facility] 8 15:12:02 Date Recorded Body weight Body mass index (BMI) Body height Provider Name and Address Organization Details Last Updated DateTime 11/20/2019 36900.01 g 21 kg/m2 167.64 cm Randa Abarca [facility] 11/20/2019 14:27:36 Date Recorded Body weight Body height Body mass index (BMI) Oxygen saturation Oxygen saturation in Arterial blood by Pulse oximetry Heart rate Systolic And Diastolic Provider Name and Address Organization Details Last Updated DateTime 7 40310.5 6 g 167.64 cm 22 kg/m2 97 % 97 % 65 /min 126/70 mm[Hg] Yohana Walker [facility] 7 08:23:32 Social History Question Answer Notes LastModified by Organizat ion Details LastModified Time Tobacco Smoking Status Former Smoker quit 34 years Yohana mauricio [facility] 10/19/2016 09:36:32 Do You Have An Advance Directive? Yes Information not available 11/20/2019 Animal Exposure? No Information not available 11/20/2019 Are You Blind Or Do You Have Difficulty Seeing? No Information not available 07/11/2018 What Is Your Level Of Caffeine Consumption? Occasional [email or web address] Information not available 10/19/2016 How Much Tobacco Do You Chew? None Information not available 11/20/2019 Are You Deaf Or Do You Have Serious Difficulty Hearing? Yes [email or web address] Information not available 10/19/2016 Which Of Your Hands Is Dominant? Right [...] Tobacco Screening? 11/20/2019 Information not available 11/20/2019 Has Tobacco Cessation Counseling Been Provided? No Information not available 11/20/2019 How Many Years Have You Smoked Tobacco? 30 Information not available 11/20/2019 Do You Have Difficulty Walking Or Climbing Stairs? No Soentimes [email or web address] Information not available 10/19/2016 Sex: Unknown Functional Status Question Answer Note LastModified by Organizat ion Details LastModified Time What is your level of alcohol consumption? Occasional rarely [email or web address] Information not available 10/19/2016 Do you or have you ever used smokeless tobacco? Never used smokeless tobacco Information not available 11/20/2019 Urinary incontinence assessment performed? No Information not available 07/11/2018 Do you have difficulty doing errands alone? No Information not available 07/11/2018 Are you able to care for yourself independently? Yes Information not available 11/20/2019 Do you have difficulty dressing, bathing, grooming, or toileting? No [email or web address] Information not available 10/19/2016 Do you or have you ever used e-cigarettes or vape? Never used electronic cigarettes Information not available 11/20/2019 Mental Status Question Answer Note LastModified by Organization D etails LastModified Time Do you have difficulty concentrating, remembering or making decisions? Yes [email or web address] Information no t available 10/19/2016 Family History [...] ICD10 Code Diagnosis IMO Codes Diagnosis Note [id number] CHRIS SOTO MD neurology - [facility] - office [address] [place] [address],[address] [place] [address] 10/19/2016 09:15:33 10/19/2016 10:35:07 Seizure 32033203 R56.9 Mr. Moralez had an episode of [...] I have informed him again of the [facility] Registry of motor vehicles policy that [...] next appointmen t he should contact me. [id number] Daren Page PA-C neurology - [facility] - office [address] [place] [phone] 01/18/2017 08:10:40 01/18/2017 08:55:27 Seizure 48947099 R56.9 [id number] Daren Page PA-C neurology - [facility] - office [address] [place] [phone] 04/01/2017 13:10:30 04/01/2017 13:53:16 Epilepsy 26333227 G40.283 [id number] Arian Burton neurology - [facility] - office [address] [place] [phone] 07/12/2017 14:57:44 07/12/2017 15:25:49 Epilepsy 65175617 G40.313 [id number] Arian Burton neurology - [facility] - office [address] [place] [phone] 07/11/2018 13:12:02 07/11/2018 14:39:59 Epilepsy 89790420 G40.909 Cervical radiculopathy 32703369 M54.12 [id number] CHRIS SOTO MD neurology - [facility] - office [address] [place] [phone] 11/20/2019 14:25:29 11/20/2019 14:51:14 Epilepsy 77188757 G40.909 Mr. Moralez had one, possibly 2 [...] None Recorded Advance Directives Directive Y: Payers Insurance Date Sequence Insurance Name Policy Number Policy Rivera Covered Member ID Rivera Member ID Guarantor Name 09/10/2016 1 *SELF PAY* Fr eloina Moralez 11/16/2019 1 MEDICARE B-[place]: [employer] Paras Moralez [id number] Paras Moralez 12/22/2018 2 [facility] (MEDICARE REPLACEMENT/ ADVANTAGE - PPO) Paras Moralez [id number] Paras Moralez 01/14/2017 [employer] - MIIA [id number] [facility] Paras Moralez 12/22/2018 2 [employer] (MEDICARE SUPPLEMENT) Paras Moralez [id number] Paras Moralez 11/22/2019 2 [employer] Paras Moralez [id number] Paras Moralez Notes Date Note Type Note [...] concerns, or complaints today. Daren Page PA-C [address] [place] [address], [phone], [facility]. 01/18/2017 10:58:55 04/01/2017 text/html Mr. Moralez is a 76 year old man with epilepsy here to discuss his medication. He feels the zonisamide is upsetting his stomach and he would like to switch to a different medication. He has had no seizures. He is currently taking 200 mg at bedtime. Daren Page PA-C [address] [place], [phone], [facility]. 04/01/2017 14:34:02 07/12/2017 text/html [...] or complaints today. Daren Page PA-C [address] [place], [address], [facility]. 07/12/2017 15:32:44 07/11/2018 text/html [...] motor skill deficit. Daren Page PA-C [address] [place], [phone], [facility]. 07/13/2018 11:29:31 11/20/2019 text/html ROS as noted in the HPI Mr. Moralez returns to the office today via an audio [...] made him feel unhappy. CHRIS SOTO MD [address] [place] [address], [phone], [facility]. 11/20/2019 15:46:42
== END 2024-11-24 14:48 | disposition home or self-care (01) ==
LOC: HO.HNS 13:11
PROVIDERS: Visit Provider Physician Assistant
DX: M43.16 Spondylolisthesis, lumbar region (principal)
CPT/HCPCS: 99213

== ENCOUNTER → 2024-11-24 13:10 | Outpatient (BNVA) | payer MEDICARE, SELFPAY | PROVIDERS: Visit Provider Physician Assistant | DX: M43.16 Spondylolisthesis, lumbar region (principal); M48.8X6 Other specified spondylopathies, lumbar region | CPT/HCPCS: 99212 ==

== ENCOUNTER → 2025-01-02 14:21 | Outpatient (BNV) | payer MEDICARE, SELFPAY | PROVIDERS: Admitting Provider Neurological Surgery; PCP Family Medicine; Visit Provider Internal Medicine Cardiovascular Disease | DX: R00.1 Bradycardia, unspecified (principal) | CPT/HCPCS: 93010 ==

== ENCOUNTER 2025-01-16 11:17 | Inpatient (IN) | payer MEDICARE, SELFPAY ==
--- NOTE | 2025-01-02 | ECG_ITS ---
Test Reason : PREOP Blood Pressure : */* mmHG Vent. Rate : 59 BPM Atrial Rate : 59 BPM P-R Int : 138 ms QRS Dur : 96 ms QT Int : 404 ms P-R-T Axes : 75 5 45 degrees QTcB Int : 399 ms Sinus bradycardia Otherwise normal ECG No previous ECGs available Referred By: Beatrice Vail Electronically Signed By: Jack Meier
[2025-01-02 13:45] VITALS: BP 154/72; PULSE 66; RESP 16; O2SAT 97; BMI 21.3
[2025-01-16] VITALS (11 sets, daily range): BP systolic 166–189; BP diastolic 67–87; PULSE 66–79; RESP 12–20; TEMP 35.9–37.2; O2SAT 93–100; BMI 20.7; BMI 19.0
--- NOTE | ~2025-01-16 | FL_ITS ---
EXAMINATION: FLUOROSCOPY GUIDANCE FOR NEEDLE PLACEMENT CLINICAL INFORMATION: L5-S1 TLIF, possible left L2-3 Microdiscectomy COMPARISON: Lumbar spine x-ray April 2024 TECHNIQUE: Fluoroscopy guidance provided for lumbar spine surgery. FINDINGS: 11 submitted fluoroscopic images. Images demonstrate posterior fusion hardware with bilateral posterior rods and interpedicular screws and right-sided disc interspacer at L5-S1and surgical instruments posterior to the L2-3 disc space . See procedure note for detailed findings. FLUOROSCOPY TIME: 1.19 minutes DOSE AREA PRODUCT: 6.2 Gy-cm2 FL/FL guidance in OR IMPRESSION: Fluoroscopy guidance for lumbar spine surgery. Electronically signed by: Mahogany Tejada MD 01/16/2025 03:41 PM [facility]
--- NOTE | 2025-01-16 11:35 | P.HPSUR_ITS ---
Pre-Procedural Eval Section A - 24 Hr Update-Section A only Date of Service: 01/16/25 The patient is an INPATIENT: No Changes since office visit: Yes Cold of Flu in the past 2 weeks The patient has been examined within 24 hours of the surgical procedure. The History & Physical has been completed within 30 days and I have reviewed it.: No Section B - Complete if H&P > 30 days Chief Complaint: S/P L5-S1 TLIF Allergies: Allergies Allergy/AdvReac Type Severity Reaction Status Date / Time No Known Allergies Allergy Verified 01/16/25 11:13 Review of Systems Sugical H&P ROS: Negative: Constitution, Cardiovascular, Respiratory, Neurological, Psychiatric, Hem-Onc, Allergic/Immunologic, Gastrointestinal, Gen itourinary, Musculoskeletal, Integumentary, Endocrine and Eyes/Ears/Nose/Throat Exam Surgical H&P Exam: Normal: HEENT, Normal: Heart, Normal: Lungs, Normal: Extremities, Normal: Abdomen, Normal: Skin and Normal: Neurological (awake, alert,oriented x 3 ) Plan Diagnosis/Plan: Unchanged right L5-S1 transforaminal lumbar interbody fusion and left L2-3 microdiskectomy Time Spent With Patient Time: Total time managing care of this patient today __6__ minutes.
[2025-01-16] MEDS: Lactated Ringers 1,000 ML 100 ML IVCONT (11:44)
--- NOTE | 2025-01-16 11:54 | HO.ANESPROP2 ---
Documented by User: Beatrice Vail NP 01/02/25 14:18 HPI - Anesthesia Eval Consult details Narrative: 84 yr old male for right L5-S1 Transforaminal Lumbar Interbody Fuse (Possible LEFT L2-L3 MicroLumbar Discectomy) scheduled for 01/16/25, seen in PAT 01/02/25 No recent illness. No CP or SOB with minimal activity 2/2 back pain/injury. Was previously chopping wood, yard work regularly. Labs updated with PCP 09/2024, normal BMP, CBC in chart Asthma: well controlled, no symptoms at all. GERD: well controlled on PPI ?Seizure x1 2019 in setting of working on hot day, dehyrated, no official diagnosis, but remains on zonisamide at bedtime PMF Active Problems Active Problems: All Active Problems (Updated 01/02/25 @ 13:22 by Anca Penaloza RN) Spondylolisthesis, lumbar region (Acute) Past Medical History Medical History (Updated 01/16/25 @ 11:31 by Roxana Vallejo RN) Pupils of different size Back pain Arthritis Allen's esophagus Difficulty swallowing Depression Numbness Chronic constipation Tear film insufficiency Glaucoma Seizures Asthma BPH (benign prostatic hyperplasia) GERD (gastroesophageal reflux disease) Malignant tumor of stomach Hearing loss Lumbar spondylolysis Hyperlipidemia HTN (hypertension) Family History Family history of problems with anesthesia: No Surgical History Surgical History (Updated 01/16/25 @ 11:19 by Roxana Vallejo RN) Hx of tonsillectomy Hx of laminectomy (~2018) Hx of plastic surgery H/O colonoscopy History of partial gastrectomy Hx of appendectomy Hx of bilateral cataract extraction Hx of hernia repair History of esophagogastroduodenoscopy (EGD) History of Problems with Anesthesia: No Social History Social History Are you a primary point of care specialist to a significant other at home: No Do you presently have visiting nurse or other home services: No Patient Tobacco Use Status: Never used Tobacco Use of substances other than those prescribed or required for medical reasons: No Have you been hit, kicked, punched, or otherwise hurt by someone within the past year? If so, by whom?: No Are you DNR?: No Advance Directives: No Advance Directives Information Provided: No Advance Directives on File: No Meds Allergies Allergy/AdvReac Type Severity Reaction Status Date / Time No Known Allergies Allergy Verified 01/16/25 11:13 Home Medications ?Medication ?Instructions ?Recorded ?Confirmed ?Last Taken ?Type acetaminophen 500 mg tablet 1,000 mg PO TID PRN Pain 01/02/25 01/02/25 Unknown History albuterol sulfate 90 mcg/actuation 2 puff inhalation Q6H PRN 01/02/25 01/02/25 Unknown History aerosol inhaler Shortness Of Breath Or Wheezing aspirin 81 mg tablet,delayed 81 mg PO DAILY 01/02/25 01/02/25 Unknown History release brimonidine 0.2 % eye drops 1 drp ophthalmic (eye) BID 01/02/25 01/02/25 Unknown History cyclosporine 0.05 % eye drops in a 1 drp ophthalmic (eye) Q12H 01/02/25 01/02/25 Unknown History dropperette (Restasis) docusate sodium 100 mg tablet 200 mg PO DAILY PRN Constipation 01/02/25 01/02/25 Unknown History esomeprazole magnesium 40 mg 40 mg PO BID 01/02/25 01/02/25 01/16/25 History capsule,delayed release finasteride 5 mg tablet 5 mg PO BEDTIME 01/02/25 01/02/25 Unknown History fluticasone propionate 110 2 puff inhalation DAILY PRN sob 01/02/25 01/02/25 Unknown History mcg/actuation HFA aerosol inhaler lisinopril 40 mg tablet 40 mg PO DAILY 01/02/25 01/02/25 Unknown History montelukast 10 mg tablet 10 mg PO QPM 01/02/25 01/02/25 Unknown History bbdwfgxggrgp-synuxkis-owwrft tablet 1 tab PO DAILY 01/02/25 01/02/25 Unknown History olopatadine 0.2 % eye drops 1 drp ophthalmic (eye) DAILY 01/02/25 01/02/25 Unknown History (Retaine Allergy) simvastatin 40 mg tablet 40 mg PO BEDTIME 01/02/25 01/02/25 Unknown History zonisamide 100 mg capsule 200 mg PO BEDTIME 01/02/25 01/02/25 Unknown History Signal Relief 01/16/25 01/16/25 History Exam Height,Weight and Vital Signs: Height 5 ft 4 in Weight 56.245 kg Last Vital Signs Pulse 66 01/02/25 13:45 Resp 16 01/02/25 13:45 BP 154/72 H 01/02/25 13:45 Pulse Ox 97 01/02/25 13:45 O2 Del Method Room Air 01/02/25 13:45 Airway Mallampati Class: I TM Dist: >3cm Neck ROM: Full Loose/Missing/Broken Teeth: No Heart: RRR Lungs: CTAB Assessment and Plan Final Anesthetic Review Family History of Problems with Anesthesia: No History of Problems with Anesthesia: No Documented by User: Jennifer Argueta DO 01/16/25 11:56 PMFSH Past Medical History Medical History (Updated 01/16/25 @ 11:31 by Roxana Vallejo RN) Pupils of different size Back pain Arthritis Allen's esophagus Difficulty swallowing Depression Numbness Chronic constipation Tear film insufficiency Glaucoma Seizures Asthma BPH (benign prostatic hyperplasia) GERD (gastroesophageal reflux disease) Malignant tumor of stomach Hearing loss Lumbar spondylolysis Hyperlipidemia HTN (hypertension) Family History Family history of problems with anesthesia: No Surgical History Surgical History (Updated 01/16/25 @ 11:19 by Roxana Vallejo RN) Hx of tonsillectomy Hx of laminectomy (~2019) Hx of plastic surgery H/O colonoscopy History of partial gastrectomy Hx of appendectomy Hx of bilateral cataract extraction Hx of hernia repair History of esophagogastroduodenoscopy (EGD) History of Problems with Anesthesia: No Social History Social History Are you a primary point of care specialist to a significant other at home: No Do you presently have visiting nurse or other home services: No Patient Tobacco Use Status: Never used Tobacco Use of substances other than those prescribed or required for medical reasons: No Have you been hit, kicked, punched, or otherwise hurt by someone within the past year? If so, by whom?: No Are you DNR?: No Advance Directives: No Advance Directives Information Provided: No Advance Directives on File: No Meds Allergies Allergy/AdvReac Type Severity Reaction Status Date / Time No Known Allergies Allergy Verified 01/16/25 11:13 Home Medications ?Medication ?Instructions ?Recorded ?Confirmed ?Last Taken ?Type acetaminophen 500 mg tablet 1,000 mg PO TID PRN Pain 01/02/25 01/02/25 Unknown History albuterol sulfate 90 mcg/actuation 2 puff inhalation Q6H PRN 01/02/25 01/02/25 Unknown History aerosol inhaler Shortness Of Breath Or Wheezing aspirin 81 mg tablet,delayed 81 mg PO DAILY 01/02/25 01/02/25 Unknown History release brimonidine 0.2 % eye drops 1 drp ophthalmic (eye) BID 01/02/25 01/02/25 Unknown History cyclosporine 0.05 % eye drops in a 1 drp ophthalmic (eye) Q12H 01/02/25 01/02/25 Unknown History dropperette (Restasis) docusate sodium 100 mg tablet 200 mg PO DAILY PRN Constipation 01/02/25 01/02/25 Unknown History esomeprazole magnesium 40 mg 40 mg PO BID 01/02/25 01/02/25 01/16/25 History capsule,delayed release finasteride 5 mg tablet 5 mg PO BEDTIME 01/02/25 01/02/25 Unknown History fluticasone propionate 110 2 puff inhalation DAILY PRN sob 01/02/25 01/02/25 Unknown History mcg/actuation HFA aerosol inhaler lisinopril 40 mg tablet 40 mg PO DAILY 01/02/25 01/02/25 Unknown History montelukast 10 mg tablet 10 mg PO QPM 01/02/25 01/02/25 Unknown History hzshiqlckmxq-umwmcbft-klwzyi tablet 1 tab PO DAILY 01/02/25 01/02/25 Unknown History olopatadine 0.2 % eye drops 1 drp ophthalmic (eye) DAILY 01/02/25 01/02/25 Unknown History (Retaine Allergy) simvastatin 40 mg tablet 40 mg PO BEDTIME 01/02/25 01/02/25 Unknown History zonisamide 100 mg capsule 200 mg PO BEDTIME 01/02/25 01/02/25 Unknown History Signal Relief 01/16/25 01/16/25 History Exam Exam Date and Time: 01/16/25 1155 Height,Weight and Vital Signs: Height 5 ft 4 in Weight 56.245 kg Last Vital Signs Pulse 66 01/02/25 13:45 Resp 16 01/02/25 13:45 BP 154/72 H 01/02/25 13:45 Pulse Ox 97 01/02/25 13:45 O2 Del Method Room Air 01/02/25 13:45 Vital Signs Pulse Rate 66 01/02/25 13:45 Respiratory Rate 16 01/02/25 13:45 Blood Pressure 154/72 H 01/02/25 13:45 Pulse Oximetry 97 01/02/25 13:45 Oxygen Delivery Method Room Air 01/02/25 13:45 Temperature 99.0 F 01/16/25 11:40 Pulse Rate 67 01/16/25 11:40 Respiratory Rate 16 01/16/25 11:40 Blood Pressure 176/67 H 01/16/25 11:40 Pulse Oximetry 98 01/16/25 11:40 Oxygen Delivery Method Room Air 01/16/25 11:40 Airway Mallampati Class: I TM Dist: >3cm Neck ROM: Full Loose/Missing/Broken Teeth: No (patient denies any loose or broken teeth) Heart: S1S2 Assessment and Plan Assessment Anesthesia Assessment: Anesthesia Plan Discussed and Chart Reviewed Final Anesthetic Review Family History of Problems with Anesthesia: No History of Problems with Anesthesia: No NPO: Yes ASA Class: II Final Preanesthetic Review: No Changes in Pt Med Stat, Meds/Allgs Chart Reviewed, Consent Obtained/Reviewed and Anes Risks/Benef Reviewed Patient Risk: Low Procedure Risk: Intermediate Anesthetic Plan Anesthetic Plan: GA and Agree w/ Assess. and Plan Disposition: Standard PACU
--- NOTE | 2025-01-16 15:16 | W.PM.OPN ---
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 I have explained the nature, purpose and benefits of the operation. I have discussed the risks and benefit of the operation including possible complications or adverse events with patient/family. Alternative(s) were discussed with the patient with their relative benefits and risks as well as the consequences of not accepting the operation were included in obtaining consent. Surgeon: Martin Stoll MD, PhD Assist: pati Lowe Description of Procedure: This patient is suffering from a right lumbar radiculopathy due to degenerative disc disease L5-S1 with mild compression of the S1 nerve root and foraminal stenosis. A previous decompression in another institution was I successful. We offered the patient a transforaminal lumbar interbody fusion to address the right lumbar radiculopathy. The procedure and complication were explained. The patient was consented. The patient was brought to the operating room endotracheally intubated. The patient was turned in a prone position the Rocael spine table prepping and draping was done followed by time-out. Two C arms were installed for fluoroscopy. Two paramedian incisions were made in preparation for pedicle screw placement. Following steps were taken for pedicle screw placement: First the pediguard tap was used to create a transpedicular trajectory into the vertebral body. Then a K-wire was advanced into the vertebral body. On the contralateral side, a specially designed instrument was advanced over the K-wire, followed by placement of a pedicle screw in the corresponding pedicle and removal of the K-wire. On the ipsilateral side, the K-wires were bent out of the way after which the transforaminal interbody fusion process was started. The paravertebral muscles were released to expose the L5-S1 laminae and facet joint. A high-speed drill was used to a complete facetectomy. The nerve root was retracted medially after which a thorough L5-S1 diskectomy was done. An 7 and 8 8 mm trial implants were inserted. More disc material was removed. The endplates were prepared. The anterior 1/3 of disc space was filled with a mixture of autograft and allograft followed by placement of expandable CTL cage that started at 8 mm and was increased until the device torqued out. The implant was filled with a additional allograft after expansion of the expandable cage was done. The implant was in the the midline on AP fluoroscopic image. Hemostasis was done. The retractor was removed. Finally, pedicle screws were placed over the K-wires and the K-wires were removed. A total of 4 pedicle screws were placed with a diameter of 6.5 x 45 mm in the L5 and S1 pedicles. The pedicle screws were connected with a 35 mm elizabeth and locked down with locking caps. Final x-rays in AP and lateral projection showed good position of the interbody device and posterior instrumentation. Hemostasis was done and the incisions were closed with an 0 Vicryl to fascia and a 3-0 Vicryl for the subdermal layer. All sponge and needle counts were correct. Patient was extubated and transported in a stable condition to recovery room. This procedure was done with assistance of her physician assistant golf professional who helped an print shop chief clerk in the fluoroscopic imaging, placed pedicle screws and performed hemostasis and closure of the incisions. Anesthesia: General Estimated blood loss: 20 mL Surgical time: 90 minutes Complications: None. Deposition: Admit to inpatient for clinical observation.
--- NOTE | 2025-01-16 15:21 | W.PM.OPN ---
Operative Note Operative Note Date of Service: 01/16/25 Narrative: Preoperative diagnosis: Left lumbar radiculopathy due to disc herniation Postoperative diagnosis: Same Procedure: Left L2-L3 lumbar microdiskectomy with microscope Surgeon: Martin Stoll MD, PhD Chisel Trimmer: pati Lowe This 84-year-old male suffering from a right lumbar radiculopathy for which he received a transforaminal lumbar interbody fusion. He also has a left lumbar radiculopathy due to disc herniation at L2-L3. The patient was offered a lumbar microdiskectomy to decompress the nerve root. The procedure complications were explained. The patient was consented. The patient was still under anesthesia from the TLIF procedure. The physician janitorial assistant made a mid lumbar incision was made followed by release of the paravertebral muscles on the left side to expose the L2-3 interspace. An intraoperative x-rays obtained to confirm the correct level. The microscope was brought in. I took over the procedure. A left L2 laminotomy was done followed by opening of the flavum ligament. The L3 nerve root was identified and retracted medially to expose the L2-3 disc space. I was able to push out a small fragment of disc herniation from under the L3 nerve root and carefully removed the fragments with a pituitary. The disc space was inspected and any residual disc fragments were removed. This resulted in an excellent decompression of the L3 nerve root. Hemostasis was done. The microscope was removed. Marcaine was injected intramuscularly.The incision was closed in two layers. Steri-Strips used to approximate the incision. An op-site were taken there was used to cover the incision. All sponge and needle counts were correct. Patient was extubated and transported in stable condition to recovery room. this procedure was done with the aid of a physician janitorial assistant who performed the initial exposure until the microscope was brought in and performed the closure of the incision. Anesthesia: General Blood loss: 10 mL Complications: None Specimen: None Surgical time: 40 minutes Disposition: Discharge home
[2025-01-16] MEDS: oxyCODONE HCl Immed Release 5 MG TABLET PO (16:34)
--- NOTE | 2025-01-16 18:39 | PHA.MEDREC ---
Addendum entered by León Harris angelita 01/16/25 19:43: Med rec reviewed Original Note: Pharmacy Consult ? Medication Reconciliation Pharmacy reviewed med rec done by nursing. Spoke with pt and he confirmed his medications.
[2025-01-16] MEDS: Albuterol Sulfate 90 MCG 8 GM INHALER 2 PUFF INHALE (21:12)
[2025-01-16] MEDS: Brimonidine Tartrate 0.2% Oph 5 ML BOTTLE 1 DROP EYE-BOTH (21:12)
[2025-01-16] MEDS: oxyCODONE HCl Immed Release 5 MG TABLET 10 MG PO (21:20)
[2025-01-17] MEDS: oxyCODONE HCl Immed Release 5 MG TABLET 10 MG PO ×3 (03:26→10:58)
[2025-01-17 03:50] VITALS: BP 136/63; PULSE 60; RESP 16; TEMP 36.4; O2SAT 95
[2025-01-17 06:55] VITALS: BP 160/70; PULSE 58; RESP 17; TEMP 36.1; O2SAT 96
[2025-01-17] MEDS: Brimonidine Tartrate 0.2% Oph 5 ML BOTTLE 1 DROP EYE-BOTH (07:40)
--- NOTE | 2025-01-17 08:27 | HO.POSTANES ---
Post Anesthesia Evaluation Post Anesthesia Evaluation Date of Service: 01/17/25 Vital Signs: Vital Signs Temp Pulse Resp BP Pulse Ox O2 Del Method 01/17/25 06:55 96.9 F 58 17 160/70 H 96 Room Air 01/17/25 03:50 97.6 F 60 16 136/63 95 Room Air Anesthesia: General Mental Status: Awake Pain Control: Satisfactory Nausea/Vomiting: None Hydration: Adequate Anesthesia-Related Issues: No Anes. Related Issues
--- NOTE | 2025-01-17 09:17 | HO.NEUROPN_ITS ---
Neurosurgery Operative Note Date of Service: 01/17/25 Narrative: POD: 1 Procedure: L5-S1 TLIF Paras is a pleasant 84-year-old male who underwent the above-listed procedure with Dr. Stoll yesterday. He was seen sitting upright in bed on 3 [address] room 373. He overall feels his symptoms are much better than pre-operatively. He still reports low grade low back pain, with good relief with pain medication. He is voiding well, and tolerating current diet. He reports he has not yet been up OOB and has been urinating in bedside urinal. Nursing staff caring for this patient report that during sign out they were informed he was OOB overnight to bathroom. Afebrile, vital signs stable. Patient spontaneously moves lower extremities without issue. Full strength of lower extremities. Back dressings have some staining without signs of hematoma. No active sanguineous drainage. Area is dry. Plan: Jennifer 84-year-old male who underwent the above-listed procedure with Dr. Stoll yesterday. He reports he has not yet been OOB. We discussed this with nurse educator who will look into this and discuss with the patient as we have conflicting reports. We would like to see him work with PT today, and are considering DC home later today if he does well. He is otherwise progressing normally as expected. He was seen at bedside with Dr. Stoll this morning. Stephon Stoll MD,PhD [facility]
--- NOTE | 2025-01-17 09:23 | P.DS_ITS ---
DS: Providers Provider Date of Service: 01/17/25 Date of admission: 01/16/25 11:17 Date of discharge: 01/17/25 Primary care physician: Tri Lowe DO DS: Summary Time Attestation Discharge Coordination Time (in mins): 13 Quality: Safe Use of Opioids Does Pt have an Active Cancer Diagnosis on the Problem List?: No Quality: Stroke Does the patient have a stroke diagnosis?: No Physical Exam Vital Signs: Vital Signs: Last Vital Signs Temp 96.9 F 01/17/25 06:55 Pulse 58 01/17/25 06:55 Resp 17 01/17/25 06:55 BP 160/70 H 01/17/25 06:55 Pulse Ox 96 01/17/25 06:55 O2 Del Method Room Air 01/17/25 06:55 O2 Flow Rate 5 01/16/25 15:50 BMI result Body Mass Index 19.0 Discharge Plan Discharge Anticipated Discharge Date/Time: 01/17/25 11:59 Patient Disposition: Home Health Service Discharge Diagnosis: s/p L5-S1 TLIF Referrals: Shady SWANSON [Other] - 1 Week Referral Note: HOME SERVICES FOR PHYSICAL THERAPY: A THERAPIST WILL CALL YOU TO SET UP FIRST VISIT Tri Lowe DO [Primary Care Provider, Family Practice] - 1 Week Discharge Medications: New oxycodone 5 mg tablet 5 mg PO Q4H PRN (Reason: pain) Qty: 30 0RF Rx Instructions: Partial Fill upon patient request. Continued aspirin 81 mg Tablet,Delayed Release (Dr/Ec) 81 mg PO DAILY acetaminophen 500 mg Tablet 1,000 mg PO TID PRN (Reason: Pain) simvastatin 40 mg tablet 40 mg PO BEDTIME zonisamide 100 mg capsule 200 mg PO BEDTIME esomeprazole magnesium 40 mg capsule,delayed release(DR/EC) 40 mg PO BID@0630,1630 brimonidine 0.2 % drops 1 drp ophthalmic (eye) BID montelukast 10 mg tablet 10 mg PO QPM albuterol sulfate 90 mcg/actuation Hfa Aerosol Inhaler 2 puff INHALATION Q6H PRN (Reason: Shortness Of Breath Or Wheezing) lisinopril 40 mg tablet 40 mg PO DAILY finasteride 5 mg tablet 5 mg PO BEDTIME Centrum Silver Tablet 1 tab PO DAILY cyclosporine [Restasis] 0.05 % Dropperette 1 drp OPHTHALMIC (EYE) Q12H olopatadine [Retaine Allergy] 0.2 % Drops 1 drp OPHTHALMIC (EYE) TID fluticasone propionate [Flonase] 50 mcg/actuation [place],Suspension 2 spray INTRANASAL DAILY PRN (Reason: Nasal Congestion) Rx Instructions: administer into each nostril Discharge Orders: Discharge Order (Routine); Ordered 01/17/25 Ordered By: Stephon Paez Diet: Advance to usual diet Activity on Discharge: As tolerated Stand Alone Forms: Patient Portal Discharge page Print Language: Honduran Activity Restrictions/Additional Instructions: After your spinal surgery we ask you to observe the following restrictions/guidelines: Activity: It is normal to feel some discomfort as you increase your activity, but that will improve with time. We ask you avoid heavy lifting or acitivities that cause pain. As a general rule, 8lbs is a safe limit for lifting right after surgery. Walk as much as you feel comfortable but not to exhaustion. You will feel extra tired the first few days after surgery. Stay well hydrated. It is OK to walk up and down stairs You may return to driving when you are off narcotics (such as vicodin, oxycodone, dilaudid, etc), and you are back to normal functional capacity. If you have any concerns please check with office before driving. Return to work is specific to each patient and each surgery, so please speak with your doctor/PA at first follow up. Please bring paperwork such as FMLA at that time if you need it filled out. Medications: We recommend you take 500mg Tylenol every 4 hours for the first week after surgery, if you do not have any liver issues and can tolerate this medication. Do not exceed 4,000mg daily. We also recommend you take Ibuprofen 600mg every 8 hours for the first week after surgery starting on post op day 1, if you do not have any kidney or sugar control issues and can tolerate this medication. Do not exceed 2,000mg daily. We will give you a short supply of narcotics after surgery (usually one weeks worth). If you need more please call the office but do not use more than prescribed. You will need to give our office 48 hours notice if you need narcotics refilled and we do not fill narcotics on weekends or evenings. If you are on a narcotic, it is a good idea to take a stool softener such as colace or senna to avoid constipation If you take blood thinner such as aspirin, Plavix, Coumadin, Effient, Eliquis etc for conditions such as Afib, DVT, Pulmonary embolus, coronary disease, stents etc please speak with your surgeon about specific details as to when you can resume these medications. You can resume NSAIDs on post op day 1 (eg: Motrin, Naproxen, etc). Follow up: Please call the office, , after surgery to arrange a 3 week follow up for wound check. Wound Care: You may remove your dressing on the first day after surgery. ?You may ?leave open to air. Please do not remove the steri strips underneath. they will fall off on their own in one week. IT IS NORMAL FOR THE WOUND TO OOZE OR BE BLOODY FOR A FEW DAYS AFTER SURGERY. ?IF THIS HAPPENS JUST PLACE NEW DRESSING OVER IT TO AVOID STAINING CLOTHES. You may shower on post op day # 1 We ask that you do not let the water soak the wound. If it does get wet, just towel dry lightly. Please do not scrub your incision or place any type of chemical/ointment on the wound. No tub baths, pools or jacuzzis for one month. If you have any leaking or redness from your wound, or fevers, please call the office. Care Plan Goals: Return to normal activity as tolerated Health Concerns: none Plan of Treatment: follow-up in clinic in 2-3 weeks Assessment: Update to progress note: PT was able to see the patient this morning and recommended home w/ health services. We will discharge the patient accordingly. A prescription of oxycodone was sent into his pharmacy for pain control. POD: 1 Procedure: L5-S1 TLIF Paras is a pleasant 84-year-old male who underwent the above-listed procedure with Dr. Stoll yesterday. He was seen sitting upright in bed on [address] room 373. He overall feels his symptoms are much better than pre-operatively. He still reports low grade low back pain, with good relief with pain medication. He is voiding well, and tolerating current diet. He reports he has not yet been up OOB and has been urinating in bedside urinal. Nursing staff caring for this patient report that during sign out they were informed he was OOB overnight to bathroom. Afebrile, vital signs stable. Patient spontaneously moves lower extremities without issue. Full strength of lower extremities. Back dressings have some staining without signs of hematoma. No active sanguineous drainage. Area is dry. Plan: Pleasant 84-year-old male who underwent the above-listed procedure with Dr. Stoll yesterday. He reports he has not yet been OOB. We discussed this with nurse educator who will look into this and discuss with the patient as we have conflicting reports. We would like to see him work with PT today, and are considering DC home later today if he does well. He is otherwise progressing normally as expected. He was seen at bedside with Dr. Stoll this morning. Stephon Stoll MD,PhD [facility]
--- NOTE | 2025-01-17 09:49 | MHC.CM.PN ---
IMM DELIVERED PT LIVES WITH SPOUSE AND ADULT DAUGHTER. PT IS FUNCTIONALLY INDEPENDENT AT BASELINE , + DRIVES. NO DME OR SERVICES. + HCP (COPY AT MD OFFICE) PCP SHAMA WEIR DP: P.T. TO EVAL BUT GOAL IS HOME WITH O.P. SERVICES. PT'S SON WILL TRANSPORT. CM WILL CONTINUE TO FOLLOW FOR ANY CHANGE TO DC PLAN/NEEDS.
--- NOTE | 2025-01-17 12:07 | W.MHC.F2F ---
Service Date Service Date: 01/17/25 Encounter Date of encounter: 01/17/25 Reasons for Services Signs and symptoms assessed: S/P L5-S1 TLIF Reason for physical therapy: home safety and mobility, therapeutic exercises, restore joint function, gait/transfer training, ADL training and energy conservation Homebound: Leaving the home is medically contraindicated at this time without the asist of a device and/or another person due th the listed conditions above and below. Reason homebound: unsteady gait / fall risk, leg weakness, pain with ambulation, poor balance / fall risk and weakness related to hospital stay Certification: Based on the above findings, I certify that this patient is confined to the home and needs intermittent assisted care, physical therapy and/or speech therapy, or continues to need occupational therapy. The patient is under my care, and I have initiated the establishment of the plan of care. The patient will be followed by a physician who will periodically review the plan of care. Time Spent With Patient Time: Total time managing care of this patient today ____ minutes.
== END 2025-01-17 13:24 | disposition home health service (06) | DRG 451 ==
LOC: HO.SSSA 11:18 → HO.S3 16:25
PROVIDERS: Admitting Provider Neurological Surgery; PCP Family Medicine; Visit Provider Neurological Surgery
PROC: 0SG30A0 Fusion of Lumbosacral Joint with Interbody Fusion Device, Anterior Approach, Anterior Column, Open Approach (ICD-10-PCS; principal; 2025-01-16 12:10)
DX: M51.16 Intervertebral disc disorders with radiculopathy, lumbar region (principal); M48.061 Spinal stenosis, lumbar region without neurogenic claudication; Z79.82 Long term (current) use of aspirin; Z79.899 Other long term (current) drug therapy
CPT/HCPCS: 86850; 86900; 86901; 93005; 97162; C1713; J0131; J0690; J1100; J1920; J2003; J2405; J2704; J3010; L8699

== ENCOUNTER → 2025-01-16 11:17 | Outpatient (BNV) | payer MEDICARE, SELFPAY | PROVIDERS: Admitting Provider Neurological Surgery; PCP Family Medicine; Visit Provider Neurological Surgery | DX: Z48.89 Encounter for other specified surgical aftercare (principal) | CPT/HCPCS: 20930; 20936; 22633; 22840; 22853; 63030; 63052; 99024; 99499; G0180 ==

== ENCOUNTER 2025-02-06 11:19 | Outpatient (AMB) | payer MEDICARE, SELFPAY ==
--- NOTE | 2025-02-06 11:46 | A.SPINEOV_ITS ---
Intake Visit Reasons: 1st post op Intake Note: Mr. Moralez is here today for his 1st post op. Airport Operations Duty Manager Required: No Allergies No Known Allergies Allergy (Verified 02/06/25 11:47) Assessment & Plan Assessment & Plan (1) Spondylolisthesis, lumbar region: Code(s): M43.16 - Spondylolisthesis, lumbar region Category: Medical Plan Mr Moralez is 3 weeks out from his right L5-S1 transforaminal lumbar interbody fusion and left L2-3 diskectomy. He seems to be doing very well in terms of the left leg pain. When he 1st got home on the right side however he had what he describes as almost complete footdrop and severe right leg pain. After about a week that improved, in his strength started to come back. His gait still feels a little off balance because of the right foot. He is having a very hard time sleeping. He is reluctant to take narcotics, but did try some oxycodone last night. It did not help much. He will feel a pulling sensation when he sleeps on his left that will give him pain in his right leg, but if he sleeps on the right side that will aggravate as well. He has a hard time sleeping flat because of back pain. He goes to his recliner and can get a few hours of sleep there. He is mostly up and down all night though. He has been walking as much as he can. He has been doing stairs frequently. He has been working with PT at home and his right tibialis strength is improving. On exam he looks comfortable, he is able to stand up and walk around the examining room with minimal assistance. His wounds are all healed up well in the back. He has 3/5 weakness of his right tibialis. We talked about recovery, expectations and restrictions after lumbar fusion surgery. I encouraged him to continue to be more active. I reassured him that I think the strength in his foot will recover. I am very pleased that the right leg pain has improved as well. I encouraged him to take oxycodone at night because getting a restful night sleep we will be really important to his recovery. I will also add in methocarbamol just to help him with the back pain, as there could be a component of muscle spasm. I will like to see him back in 6 weeks with a set of x-rays. León Stoll MD, PhD [facility] Medications: New methocarbamol 500 mg PO Q6H 30 tabs 1RF Coding Level of Care Code Global (42435) Diagnoses Spondylolisthesis, lumbar region M43.16
--- OUTSIDE RECORDS SUMMARY | 2025-02-06 15:22 | XMS_ITS | Clinical Summary ---
Author Organization [facility] Address [address] [place] [address] Care Team Providers Care Data Analysis Assistant Name Role Phone Tri Lowe DO Primary Care Provider [phone] Allergies Active Allergy Reactions Criticality Noted Date [...] Years Used Date Smoking Tobacco: Former Cigarettes 0 Q uit: 1985 Smokeless Tobacco: Never Alcohol [...] Social Drivers of Health Annual Screening 02/09/2024 Influenza Vaccine (#1) 2024 , 12/08/2022, 12/11/2020, Additional history exists COVID-19 Vaccine ( season) 2024 02/23/2022, 07/09/2021, 01/06/2021, Additional history exists Zoster Vaccines Completed 10/06/2018, 05/12/2018 RSV Vaccine (60+ years old and patients) Completed 12/08/2022 Pneumococcal Vaccine: 50+ Years Completed 01/13/2023, 11/18/2007, 04/09/2005 Hepatitis B Vaccines Aged Out No long er eligible based on patient's age to complete this topic Insurance MEDICARE [facility] Member Subscriber Plan / Payer (Ef fective 2017-Present) Name:Paras Moralez Relation to Subscriber:Self Name:Paras Moralez Payer ID:[id number] Group ID:Not on file Type:Not on file Address: [address] [place] [id number] Care Teams Data Analysis Assistant Relationship Specialty Start Date End Date Tri Lowe DO [address] [place] [phone] PCP - General Family Medicine 03/23/24
--- OUTSIDE RECORDS SUMMARY | 2025-02-06 15:22 | XMS_ITS | Encounter Summary ---
Author Organization [facility] Address [address] [place] [address] Care Team Providers Care Sales Developer Name Role Phone ChrissyTri Cornelius MERCADO Primary Care Provider [phone] Encounter Details Date Type Department Care Team (Latest Contact Info) Description 01/22/2020 Community Orders [facility] EpicCare Link [address] [place] [address] Thiago Bellamy MD [address] [place] [id number] Pre-procedural laboratory examinations (Primary Dx) Social History [...] of this encounter Results * Due to [place] state law, this organization might not be sharing negative HIV tests. * COVID-19 PCR, Pre-Procedure (Asymptomatic), BLOCK SPLITTER OPERATOR/OP/Saliva (03/18/2020 8:40 AM EST) SARS CoV 2 RNA, RT PCR Not Detected Not Detected 03/18/2020 7:58 PM EST [facility] Comment:A Not [...] AM EST 03/18/2020 8:40 AM EST Narrative [facility] - 03/18/2020 7:58 PM EST These tests were developed, validated, and their performance characteristics determined by the [facility] Virology Laboratory at [facility] under CLIA [id number]. They have not been cleared or approved by the U.S. Food and Drug Administration (FDA). FDA Policy for Diagnostic Tests for Coronavirus Disease-2019 during the Public Health Emergency issued April 24, 2019, is followed. us Thiago Bellamy MD LAB BODY FLUIDS AND STOOLS ORDER NORM Final Result [facility] [address] [place] [address], documented in this encounter Visit Diagnoses Diagnosis Pre-procedural laboratory examinations- Primary Pre-procedural laboratory examination documented in this encounter Care Teams Sales Developer Relationship Specialty Start Date End Date Tri Lowe DO [address] [place] [phone] PCP - General Family Medicine 03/23/24 documented as of this encounter
--- OUTSIDE RECORDS SUMMARY | 2025-02-06 15:22 | XMS_ITS | Clinical Summary ---
Author Organization [facility] Address [address] [place] [address] Care Team Providers Care Flower Stripper Name Role Phone Jacki Rivera Primary Care Provider [phone] Allergies No known active allergies Medications * [...] Zoster (Zostavax) Discontinued Insurance MEDICARE PART B [facility] OPTIONS-SUPPLEMENTAL * Guarantor: MANAGEMENT OF TRANSPORTION Account Type Relation to Patient Date of Phone Billing Address [facility] Rivera ACCOUNTS PAYABLE [address] [address] Care Teams Flower Stripper Relationship Specialty Start Date End Date Jacki Rivera [facility] [address] [address] PCP - General Family Medicine 01/16/21
== END 2025-02-06 13:29 | disposition home or self-care (01) ==
LOC: HO.HNS 11:19
PROVIDERS: PCP Family Medicine; Visit Provider Physician Assistant
DX: M43.16 Spondylolisthesis, lumbar region (principal)
CPT/HCPCS: 99024

== ENCOUNTER → 2025-02-06 11:19 | Outpatient (BNVA) | payer MEDICARE, SELFPAY | PROVIDERS: PCP Family Medicine; Visit Provider Physician Assistant | DX: M43.16 Spondylolisthesis, lumbar region (principal) | CPT/HCPCS: 99212 ==